=== PATIENT | female | born 1955 | race Caucasian/White ===

== ENCOUNTER 2020-03-28 17:23 | Emergency (ER) | payer BC, SELFPAY ==
[2020-03-28 17:29] VITALS: BP 181/78; PULSE 68; RESP 14; TEMP 36.8; O2SAT 99
--- NOTE | 2020-03-28 17:57 | ED.SKABFB ---
HPI - Skin/Abscess/Foreign Bdy General Chief complaint: Skin/Abscess/Foreign Body Stated complaint: bug bite on left arm Time Seen by Provider: 03/28/20 17:57 Source: patient and RN notes reviewed Mode of arrival: ambulatory Limitations: no limitations History of Present Illness HPI narrative: 65 year old female presents to [facility] with complaints of possible hornet or wasp sting to the upper left upper medial arm which occurred this evening about 45 minutes ago. Patient states when she shook out her shirt she noted a wasp.Patient has 5cm X 6cm area of erythema left medial upper arm surrounding a center puncture string kimberley. Patient describes area as itchy and stinging rates discomfort as 3/10. Patient has not applied any OTC ointment or taken any OTC medications at this time. Patient denies any difficulty with her breathing or any difficulty with swallowing, respirations even and nonlabored with SAO2 99% on room air. MD complaint: insect bite/sting and other Onset (ago): minute(s) (45 minutes prior to arrival) Tetanus up to date: yes Location: LLE Severity: mild Severity scale (1-10): 3 Quality: pruritic and other (stinging) Pain Consistency: constant Relieving factors: none Exacerbating factors: other (palpation) Context: witnessed insect bite Associated symptoms: other (insect sting left upper arm) Treatments prior to arrival: none Related Data Home Medications Medication Instructions Recorded Confirmed atorvastatin 10 mg PO DAILY 03/28/20 03/28/20 benazepril 30 mg PO DAILY 03/28/20 03/28/20 cetirizine [Zyrtec] 10 mg PO DAILY 03/28/20 03/28/20 citalopram 40 mg PO DAILY 03/28/20 03/28/20 levothyroxine 137 mcg PO DAILY 03/28/20 03/28/20 Allergies Allergy/AdvReac Type Severity Reaction Status Date / Time No Known Allergies Allergy Verified 03/28/20 18:00 Review of Systems Review of Systems: Narrative: CONSTITUTIONAL: Denies fever, chills, or sweats. EYES: Denies visual changes, redness, or discharge. ENT: Denies rhinorrhea, congestion, sore throat, or otalgia. CARDIOVASCULAR: Denies chest pain, palpitations, or edema. RESPIRATORY: Denies cough or dyspnea. GASTROINTESTINAL: Denies abdominal pain, nausea, vomiting, or diarrhea. GENITOURINARY: Denies dysuria or hematuria. SKIN:Positive for redness to left medial upper arm with sting kimberley which is itchy and stinging MUSCULOSKELETAL: Denies back pain, joint pain, or myalgia. NEUROLOGIC: Denies headache, numbness, or weakness. PSYCHIATRIC: Denies anxiety or depression. All systems reviewed & are unremarkable except as noted in HPI and below PMFSH Past Medical History Medical History (Updated 03/30/20 @ 13:37 by Grace Wong NP) Anxiety and depression Hyperlipidemia Hypertension Hypothyroid Surgical History Surgical History (Updated 03/30/20 @ 13:38 by Grace Wong NP) History of colon resection S/P lumpectomy of breast right with chemotherapy and radiation treatment Social History Social History (Updated 03/28/20 @ 18:12 by Grace Wong NP) Smoking status: Never smoker Living arrangements: with family Gender identity (if verbalized by the patient): Female Comments At time of signature, agree with nursing past medical, surgical, social history. There is no relevant family history pertinent to the presenting complaint Exam Narrative: Exam Narrative: GENERAL: Well-appearing, well-nourished, and in no acute distress. HEAD: Normocephalic, atraumatic. EYES: PERRLA and EOMI. ENT: Nares clear, no rhinorrhea or epistaxis. Mucous membranes moist. NECK: Supple.no lymphadenopathy to neck CHEST: Clear to auscultation. No respiratory distress.SAO2 99% on room air. HEART: Regular rate and rhythm. No murmur heard. Normal peripheral pulses. ABDOMEN: Soft, nontender, nondistended, normal active bowel sounds. EXTREMITIES: Normal range of motion. No edema. SKIN: Warm, dry, 6cm X 5cm area of erythema to left medial area surrounding central sting p
== END 2020-03-28 18:25 | disposition home or self-care (01) ==
PROVIDERS: Emergency Provider Registered Nurse; PCP Nurse Practitioner Family
DX: T63.481A Toxic effect of venom of other arthropod, accidental (unintentional), initial encounter (principal); F41.9 Anxiety disorder, unspecified; F32.9 Major depressive disorder, single episode, unspecified; E78.5 Hyperlipidemia, unspecified; I10 Essential (primary) hypertension; E03.9 Hypothyroidism, unspecified
CPT/HCPCS: 99203; G0463

== ENCOUNTER → 2020-10-31 00:24 | Outpatient (CLI) | payer BC, SELFPAY ==
[2020-10-31 18:42] LABS: SARS-CoV-2 RNA PCR Negative
== END ==
PROVIDERS: Visit Provider Surgery
DX: Z01.812 Encounter for preprocedural laboratory examination (principal); Z20.822 Contact with and (suspected) exposure to COVID-19
CPT/HCPCS: C9803; U0003; U0005

== ENCOUNTER 2020-10-31 08:45 | Outpatient (CLI) | payer BC, SELFPAY ==
--- NOTE | 2020-10-31 08:50 | ECG_ITS ---
Measurements Intervals [place] Rate: 56 P: 83 DE: 251 QRS: -19 QRSD: 107 T: 0 QT: 453 QTc: 438 Interpretive Statements SINUS BRADYCARDIA WITH FIRST DEGREE AV BLOCK VOLTAGE CRITERIA FOR LVH BORDERLINE R WAVE PROGRESSION, ANTERIOR LEADS BORDERLINE T WAVE ABNORMALITY- INFERIOR LEADS BASELINE ARTIFACT- I, II, III, AVR, AVL,A VF ABNORMAL ECG Electronically Signed On 10-31-2020 9:13:01 CDT by Esau Hayes D.O.
[2020-10-31 09:14] LABS: Basophils Percent Auto 0.7 % (0.2-1.2); Eosinophils Absolute Auto 0.2 K/mm3 (0-0.3); Eosinophils Percent Auto 3.9 % (0-4.4); Hematocrit 38.7 % (37.0-47.0); Hemoglobin 12.6 g/dL (12.0-15.0); Immature Granulocyte Absolute 0.01 K/mm3 (0.00-0.031); Immature Granulocyte Percent A 0.2 % (0-0.5); Lymphocytes Absolute Auto 1.69 K/mm3 (0.9-3.2); Lymphocytes Percent Auto 31.4 % (18.3-44.2); Mean Corpuscular HGB Conc 32.6 g/dl (32-36); Mean Corpuscular Hemoglobin 29.6 pg (26-34); Mean Corpuscular Volume 90.8 fl (80-100); Mean Platelet Volume 9.1 fl (7.4-10.4); Monocytes Absolute Auto 0.5 K/mm3 (0.1-0.6); Monocytes Percent Auto 9.1 % (2.6-8.5); Neutrophils Percent Auto 54.7 % (45.5-73.1); Platelet Count Result 214 k/mm3 (150-375); Red Blood Count 4.26 M/mm3 (4.2-5.4); Red Cell Distribution Width 13.4 % (11.5-14.5); White Blood Count 5.4 K/mm3 (4.5-10.0)
[2020-10-31 09:24] LABS: Prothrombin Time 13.3 Seconds (11.1-14.7)
[2020-10-31 09:25] LABS: Partial Thromboplastin Time 29.2 SECONDS (22.3-36.8)
== END 2020-10-31 08:46 | disposition home or self-care (01) ==
LOC: ANHSURGERY 08:49
PROVIDERS: PCP Nurse Practitioner Family; Visit Provider Surgery
DX: Z01.818 Encounter for other preprocedural examination (principal); I10 Essential (primary) hypertension; E78.5 Hyperlipidemia, unspecified; C18.9 Malignant neoplasm of colon, unspecified; R94.31 Abnormal electrocardiogram [ECG] [EKG]
CPT/HCPCS: 36415; 85025; 85610; 85730; 93005

== ENCOUNTER 2020-11-03 01:18 | Day surgery (SDC) | payer BC, SELFPAY ==
[2020-10-29 13:12] VITALS: BMI 39.1
--- NOTE | ~2020-11-03 | XR_ITS ---
EXAMINATION: XR fl guide central line place DATE: 11/03/2020 08:22 INDICATION: Port placement. TECHNIQUE: A single intraoperative fluoroscopic view of the chest was obtained. I was not present. Fl uoroscopy exposure time was 28 seconds. COMPARISON: None. FINDINGS: There is a right internal jugular port with tip at superior cavoatrial junction. No pneumot horax. Surgical clips overlie right chest. IMPRESSION: 1. Port tip at superior cavoatrial junction. Reviewed, dictated and finalized at location B.
--- NOTE | ~2020-11-03 | XR_ITS ---
EXAMINATION: XR chest port-a-cath/central DATE: 11/03/2020 08:44 INDICATION: Port placement. TECHNIQUE: A single frontal view of the chest was obtained. COMPARISON: None. FINDINGS: There is mild atelectasis in the lower lung zones. No pleural effusion or pneumothorax. The heart size is normal. There is a right internal jugular port with tip in superior vena cava. Surgica l clips overlie right chest. IMPRESSION: 1. Port tip in superior vena cava. 2. Mild atelectasis in the lower lung zones. Reviewed, dictated and finalized at location B.
--- NOTE | 2020-11-03 06:58 | WPDANESEPPF ---
Anes - Initial Pre Proc Eval Procedure: Operation Date: 11/03/20 07:30 Proposed Procedures p Insertion Tanner Cath - Jc Stone MD Date/Time: 11/03/20 06:58 Surgeon: Jc Stone MD Pre Op Diagnosis: malignant neoplasm of ascending colon Patient Data Age: 65 Gender: F Height: 1.57 m Weight: 97 kg Allergies Allergy/AdvReac Type Severity Reaction Status Date / Time No Known Allergies Allergy Verified 10/29/20 13:08 Home Medications Medication Instructions Recorded Confirmed Type atorvastatin 10 mg PO HS 03/28/20 10/29/20 History benazepril 30 mg PO DAILY 03/28/20 10/29/20 History cetirizine [Zyrtec] 10 mg PO DAILY 03/28/20 10/29/20 History citalopram 40 mg PO DAILY 03/28/20 10/29/20 History levothyroxine 137 mcg PO DAILY 03/28/20 10/29/20 History clonazepam 0.5 mg PO BID PRN 10/29/20 10/29/20 History gabapentin 300 mg PO HS 10/29/20 10/29/20 History Patient hx anesthesia problems: none Family hx anesthesia problems: none PMFSH Past Medical History Medical History (Updated 11/03/20 @ 06:58 by Brien Bianchi DO) Anxiety and depression Hyperlipidemia Hypertension Hypothyroid PONV (postoperative nausea and vomiting) Surgical History Surgical History (Updated 11/03/20 @ 06:57 by Brien Bianchi DO) History of colon resection History of hysterectomy S/P lumpectomy of breast right with chemotherapy and radiation treatment Social History Social History (Updated 03/28/20 @ 18:12 by Grace Wong NP) Smoking status: Never smoker Alcohol intake: current Alcohol use details: VERY RARELY Substance use: never Substance use type: does not use Living arrangements: with family Gender identity (if verbalized by the patient): Female Spiritual care concerns: No Anes - Eval Final PreProcedure Day of Procedure 11/03/20 06:58 Patient weight: obese Heart: regular rate and rhythm Lungs: clear to auscultation and normal air movement Airway: Mallampati scale class II Neurological: alert and oriented Last oral intake: >/= 8 hours ASA classification: III Emergent: no Anesthetic plan: proceed Anesthesia type and monitoring: general GIVS and standard monitoring Informed Consent: The patient's anesthetic plan and its attendant risks and benefits were discussed with the patient/family/POA. Questions were solicited and answers provided to the satisfaction of the patient/family/POA.
[2020-11-03] MEDS: LACTATED RINGERS 1,000 ML 30 ML IV CONT (07:05)
[2020-11-03] MEDS: KETOROLAC 15 MG/ML VIAL (*BKC) IV PUSH (07:08)
--- NOTE | 2020-11-03 07:19 | PM.HPGS ---
History of Present Illness History of Present Illness Consent: Risks, benefits, and alternatives of placement of a Port-A-Cath have been discussed and questions answered. Patient agrees to proceed with procedure. Chief complaint: malignant neoplasm of ascending colon Narrative: Laly Kincaid is a 65 year old female with a history of stage to ER positive lymph node negative HER2 [place] negative breast cancer diagnosed in 2011 status post lumpectomy and radiation therapy. She also received amoxicillin and completed treatment in 2012. subsequently the patient was diagnosed with stage III colon cancer during routine screening colonoscopy in 2014 and had a right hemicolectomy at that time period patient subsequently received adjuvant chemotherapy with Xelox completed in July 2015. ox apply at 9 was discontinued due to neuropathy back then. She was closely monitor with CEA starting to climb. Patient Ana had a CT of the chest abdomen pelvis done on September 29, 2020 that showed suspicious padded Hunt[place] marie is a. MRI the abdomen was completed on September thin showed 2 lesions within the liver consistent with metastatic disease. She had CT-guided liver biopsy done on October 17, 2020 and passed allergy came back consistent with metastatic colon cancer. Patient therefore proceeding toward chemotherapy for recurrent colon cancer with metastasis to the liver. She is present I now for placement of a port and then proceeding to further treatment with Dr. Jesus antonio. Review of Systems Constitutional: Constitutional: Reports no additional constitutional complaints, Reports fatigue and Denies malaise Eyes: Eyes: Denies change in vision and Denies loss of vision ENT: Reports Normal hearing present, Denies change in voice, Denies dizziness, Denies hoarseness and Denies sore throat Cardiovascular: Cardiovascular: Denies chest pain, Denies leg edema and Denies dyspnea Comments: History of hypertension and hyperlipidemia Respiratory: Respiratory: Denies cough, Denies dyspnea and Denies wheezing Gastrointestinal: Gastrointestinal: Denies hematochezia, Denies change in bowel habits and Denies heartburn Genitourinary: Genitourinary: Denies urinary frequency and Denies urinary incontinence Integumentary/Breasts: Comments: History of stage to ER positive lymph node negative for 2 [place] negative breast cancer back in 2007. History of MRSA in past. Neurologic: Reports Normal hearing present, Denies confusion, Denies dizziness, Denies loss of vision, Denies memory loss and Denies seizure-like activity Comments: History of headaches Psychiatric: Psychiatric: Denies confusion, Denies depression and Denies memory loss Endocrine: Endocrine: Denies cold intolerance and Reports fatigue Comments: history of hypothyroidism Hematologic/Lymphatic: Hematologic/Lymphatic: Denies easy bleeding and Denies easy bruising Allergic/Immunologic: Allergic/Immunologic: Denies wheezing PMFSH Past Medical History Medical History Anxiety and depression Hyperlipidemia Hypertension Hypothyroid PONV (postoperative nausea and vomiting) Surgical History Surgical History History of colon resection History of hysterectomy S/P lumpectomy of breast right with chemotherapy and radiation treatment Social History Social History Smoking status: Never smoker Alcohol intake: current Alcohol use details: VERY RARELY Substance use: never Substance use type: does not use Living arrangements: with family Gender identity (if verbalized by the patient): Female Spiritual care concerns: No Meds Home Medications and Allergies Home Medications Medication Instructions Recorded Confirmed Type atorvastatin 10 mg PO HS 03/28/20 10/29/20 History benazepril 30 mg PO DAILY 03/28/20 10/29/20 History ce
--- NOTE | 2020-11-03 07:36 | WPDHPUPDATE1 ---
History and Physical Update Update Date/Time: 11/03/20 07:36 History and Physical has been reviewed, including an updated exam of the patient. There are NO changes in the patient's condition. Risks, benefits, and alternatives have been discussed and questions answered. Patient agrees to proceed with procedure.
[2020-11-03] MEDS: ceFAZolin 2 GM/D5W 50 ML 2 GM/50 ML BAG IVPB (07:41)
[2020-11-03 08:02] VITALS: BP 171/96; PULSE 65; RESP 18; TEMP 36.1; O2SAT 98
[2020-11-03] MEDS: BUPIVACAINE/EPINEPHRINE 0.5% 30 ML VIAL INFILTRATE (08:09)
[2020-11-03] MEDS: HEPARIN SODIUM 5,000 UNITS/ML VIAL 5000 UNITS IRRIGATION (08:10)
--- NOTE | 2020-11-03 08:28 | PM.PROC ---
Procedure Note - Detailed Date of procedure: 11/03/20 Pre-op diagnosis: malignant neoplasm of ascending colon Post-op diagnosis: same Procedure performed: Ultra sound guided placement of Port-A-Cath Description of procedure: Patient was seen and marked in the pre-op area prior to coming to the OR. Patient was brought to the operating room. She was placed supine on the operating table and general IV sedation was induced. The nurse soil conservation teacher provided oxygen and IV sedation. Patient's head was carefully turned to the left side while in the supine position and the patient's entire neck and anterior chest on both sides was prepped and draped in the usual sterile fashion. Following this the appropriate time-out was completed confirming procedure and patient. We confirmed that all the needed equipment was present in the room. Following this the ultrasound probe was draped into the field and using the probe we carefully identified the carotid artery and jugular vein on the right neck. I marked the skin directly over the Rt. internal jugular vein. We took a picture using ultrasound machine of the vascular anatomy of the right neck which looked normal. Following this, using the continuous ultrasound guidance, a Cook needle was placed through the skin into this vein. I did use a 11 blade knife to make a small chyna in the skin prior to inserting the needle. I then was able to draw back good dark blood. Once this was completed a guidewire using a J-tip was advanced through the needle and then the needle and the guidewire cover were withdrawn. C-arm fluoroscopy was used to confirm that the guidewire was nicely in the venous system. Once this was confirmed with the C - arm I preceded on by making the pocket for the port on the patient's anterior right chest approximately 3 centimeters below the clavicle overlying the chest wall. Local anesthetic was infiltrated into the skin where there was a transverse incision marked out. Incision was made and we made a pocket inferior to the incision with just a little dissection superior. The low-profile port was tried in the pocket and seemed to fit well. Following this the catheter which had been placed on a tunneling device was tunneled from the port site on the anterior right chest up to the right neck where a small incision had been made with an #11 blade knife. Then the catheter was pulled through so that we would have 15 centimeters to put into the central venous system once the dilation took place. Following this we placed the dilator and sheath over the guidewire in the jugular vein and carefully dilated the tract into the central venous system. The guidewire and dilator were then removed, carefully covering the end of the sheath to prevent air embolus. The end of the catheter which had been cut off straight across and the tip checked was then inserted into the sheath and into the neck. I then carefully pulled the 2 arms of the tear-away sheath away as the accounting assistant held the catheter in position with a DeBakey forceps. Following this we checked the position of the catheter with C-arm fluoroscopy confirming that the tip seemed to be in the distal superior vena cava near the junction with the right atrium. I felt that it was in good position and so the rest of the catheter was pulled down toward the feet into the port site. We then measured to the appropriate position to cut the catheter to attach it to the port stem. Then the connector sealing device for the catheter port was placed onto the catheter and then the catheter cut to the appropriate length and inserted onto the stem of the port. Then the connector was advanced onto the stem over the catheter sealing it to the port. A single 3- 0 Prolene suture was also used during this to suture the connector to the port and to the underlying musculature. Following this at one other site the port was sutured to the underlying musculature with the 3-0 Proline. Both prior to arelis
[2020-11-03 08:35] VITALS: BP 164/68; PULSE 86; RESP 16; O2SAT 95
[2020-11-03 09:10] VITALS: BP 175/80; PULSE 59; RESP 14
== END 2020-11-03 09:45 | disposition home or self-care (01) ==
PROVIDERS: PCP Nurse Practitioner Family; Visit Provider Surgery
PROC: (CPT 36561; principal; 2020-11-03 07:30)
DX: C18.2 Malignant neoplasm of ascending colon (principal); C78.7 Secondary malignant neoplasm of liver and intrahepatic bile duct; F41.9 Anxiety disorder, unspecified; F41.8 Other specified anxiety disorders; E78.5 Hyperlipidemia, unspecified; I10 Essential (primary) hypertension; E03.9 Hypothyroidism, unspecified; Z85.3 Personal history of malignant neoplasm of breast
CPT/HCPCS: 36561; 76937; 77001; C1788; J0690; J1644; J1885; J2250; J2704; J3010; J7030; J7120

== ENCOUNTER 2021-02-16 07:04 | Outpatient (CLI) | payer BC, SELFPAY ==
--- NOTE | ~2021-02-16 | CT_ITS ---
EXAMINATION: CT abdomen pelvis w con DATE: 02/16/2021 07:33 INDICATION: Cecal cancer TECHNIQUE: Computed tomography (CT) of the abdomen and pelvis was performed with 100 mL Omnipaque-350 intravenous contrast. Automated exposure control and iterative reconstruction technique were employe d. The dose-length product was 1139.48 mGy-cm. COMPARISON: None FINDINGS: Mild discoid atelectasis/scarring in the right middle lobe. Heart size is normal. No pericardial or p leural effusion. Central venous catheter tip at the high right atrium. There are approximately 2.5 cm and 2.0 cm hypodense mass is in the right and left hepatic lobes respectively which are suspicious f or metastatic disease. Gallbladder, spleen, pancreas, bilateral adrenal glands and kidneys are normal . Postoperative change of prior cecal resection with ileocolic anastomosis. No abnormal soft tissue m asses to suggest residual/recurrent disease. Bowels are otherwise unremarkable with no bowel obstruct ion. Bladder is normal. The uterus is not identified and has likely been surgically resected. No free intraperitoneal gas or fluid. No pathologically enlarged abdominal or pelvic lymphadenopathy. Modera te lower thoracic and mild to moderate lumbar spondylosis. Mild to moderate bilateral hip osteoarthri tis. There are couple small bone islands at the right acetabulum. No suspicious lytic or blastic bone lesions. IMPRESSION: 1. 2.5 cm and 2.0 cm hypodense hepatic masses concerning for metastatic disease. Correlate with any p rior outside imaging. If clinically indicated the lesions would likely be amenable to ultrasound guid ed percutaneous biopsy. Reviewed, dictated and finalized at location B. IMPRESSION: 1. 2.5 cm and 2.0 cm hypodense hepatic masses concerning for metastatic disease . Correlate with any prior outside imaging. If clinically indicated the lesions would likely be amenable to ultrasound guided percutaneous biopsy.
== END 2021-02-16 07:05 | disposition home or self-care (01) ==
PROVIDERS: PCP Nurse Practitioner Family; Visit Provider Internal Medicine Hematology & Oncology
DX: C18.0 Malignant neoplasm of cecum (principal)
CPT/HCPCS: 74177; Q9967

== ENCOUNTER → 2021-03-10 09:30 | Outpatient (CLI) | payer BC, SELFPAY ==
[2021-03-10 20:46] LABS: SARS-CoV-2 RNA PCR Negative
== END ==
PROVIDERS: PCP Nurse Practitioner Family
DX: Z20.822 Contact with and (suspected) exposure to COVID-19 (principal)
CPT/HCPCS: C9803; U0003; U0005

== ENCOUNTER 2021-09-16 06:56 | Outpatient (CLI) | payer BC, SELFPAY ==
--- NOTE | ~2021-09-16 | CT_ITS ---
EXAMINATION: CT abdomen pelvis w con INDICATION: Cecal cancer TECHNIQUE: Computed tomographic images of the abdomen and pelvis were obtained after the administrati on of 100 cc of Omnipaque 350 intravenous contrast. The dose-length product (DLP) was 1187.99 mGy-cm. Automated exposure control and iterative reconstruction technique were employed. COMPARISON: 02/16/2021 FINDINGS: The lung bases are clear. The heart size is normal. A 2.6 cm mass in liver segment Roselia is s lightly increased in size. A 3 cm subcapsular mass in liver segment V has also slightly increased in size. No new liver masses are identified. The spleen, pancreas, gallbladder, and adrenal glands are n ormal. The kidneys are unremarkable. There are changes of right hemicolectomy. No residual or recurre nt mass is identified. No pathologically enlarged abdominal or pelvic lymph nodes are identified. The re is no free intraperitoneal gas or evidence of bowel obstruction. There is mild lumbar spondylosis. IMPRESSION: 1. Two liver masses with slight interval enlargement, consistent with metastatic disease. Reviewed, dictated and finalized at location B. IMPRESSION: 1. Two liver masses with slight interval enlargement, consistent with metastati c disease.
== END 2021-09-16 06:57 | disposition home or self-care (01) ==
PROVIDERS: PCP Nurse Practitioner Family; Visit Provider Internal Medicine Hematology & Oncology
DX: C18.0 Malignant neoplasm of cecum (principal)
CPT/HCPCS: 74177; Q9967

== ENCOUNTER 2021-10-09 08:23 | Outpatient (CLI) | payer BC, SELFPAY ==
--- NOTE | ~2021-10-09 | MR_ITS ---
EXAMINATION: MR abdomen wo/w con DATE: 10/09/2021 09:47 INDICATION: Liver mass. TECHNIQUE: Magnetic resonance imaging (MRI) of the abdomen was performed without and with 20 mL Multi Soheila intravenous contrast. Sequences included coronal T2-weighted FS FSE, coronal and axial FS FIEST A, axial T2-weighted FSE, coronal LAVA-flex, axial STIR FSE, axial DWI, axial dual-echo T1-weighted F SPGR, and axial LAVA. Postcontrast sequences included coronal LAVA-flex and a time course of axial LA VA. COMPARISON: CT abdomen and pelvis 09/16/2021, 02/16/2021 FINDINGS: There is diffuse hepatic steatosis. There is a 3.0 x 1.8 cm necrotic mass with enhancing wall in segm ent of the liver that measured 2.9 x 2.5 cm on 02/16/21. There is a 2.6 x 1.9 cm necrotic mass with enhancing wall and septa in segment IVb of the liver that measured 2.1 x 1.9 cm on 02/16/21. The gall bladder is distended, likely secondary to fasting. The spleen, pancreas, adrenal glands, and kidneys are normal. There are no dilated loops of bowel. There are no pathologically enlarged lymph nodes. Th ere is no free intraperitoneal fluid. IMPRESSION: 1. Two liver masses, consistent with metastatic disease. Reviewed, dictated and finalized at location A.
== END 2021-10-09 08:24 | disposition home or self-care (01) ==
PROVIDERS: PCP Nurse Practitioner Family
DX: K76.9 Liver disease, unspecified (principal)
CPT/HCPCS: 74183; A9577

== ENCOUNTER 2022-01-20 08:29 | Outpatient (CLI) | payer BC, SELFPAY ==
--- NOTE | ~2022-01-20 | CT_ITS ---
EXAMINATION: CT chest abdomen pelvis w con DATE: 01/21/2022 16:25 CDT INDICATION: Right hip pain for months. Colon cancer. Breast cancer. Cecal cancer. TECHNIQUE: Computed tomography (CT) of the chest, abdomen, and pelvis was performed with 100 cc Omnip aque 300 intravenous contrast. The dose-length product was 1738.63 mGy-cm. Automated exposure control and iterative reconstruction technique were employed. COMPARISON: CT dated 09/16/2021 FINDINGS: CHEST CT: Heart size normal. No thoracic lymphadenopathy. Mild atherosclerosis. No significant pleural or peric ardial effusion. Portacatheter tip in the SVC. Small hiatal hernia. There is a 3 mm right fissural no dule. There is calcified granuloma in the right lower lobe. There is a calcified granuloma left upper lobe. No endobronchial lesions. No pneumothorax. No focal airspace consolidation. There is right mid dle lobe atelectasis/scarring, possibly from radiation therapy. ABDOMEN/PELVIS CT: There are 2 ill-defined masses of the liver with heterogeneous enhancement direct comparison is diffi cult due to differences in bolus contrast timing, presumably representing metastatic disease. The liver, pancreas, adrenal glands are unremarkable. There are changes of partial right hemicolectom y. Gallbladder is present. Nonobstructive bowel pattern. There is a hemangioma of the L3 vertebra. Mi ld thoracic and lumbar spondylosis. There are surgical clips in the right breast and axilla consisten t with previous lumpectomy. IMPRESSION: 1. Persistent ill-defined masses of the liver involving the right and left hepatic lobes. Exact measu rements are difficult to determine for evaluation of change, due to bolus contrast timing. These mass es are presumably metastatic. 2: Right fissural nodule measuring 3 mm, likely benign. Follow-up low dose CT chest in 12 months radha mmended. Reviewed, dictated and finalized at location A. IMPRESSION: 1. Persistent ill-defined masses of the liver involving the right and left hepa tic lobes. Exact measurements are difficult to determine for evaluation of irving ge, due to bolus contrast timing. These masses are presumably metastatic. 2: Right fissural nodule measuring 3 mm, likely benign. Follow-up low dose CT c hest in 12 months recommended.
== END 2022-01-20 08:30 | disposition home or self-care (01) ==
PROVIDERS: PCP Nurse Practitioner Family; Visit Provider Internal Medicine Hematology & Oncology
DX: C18.0 Malignant neoplasm of cecum (principal); R91.8 Other nonspecific abnormal finding of lung field
CPT/HCPCS: 71260; 74177; Q9967

== ENCOUNTER 2022-02-18 20:57 | Emergency (ER) | payer BC, MEDICARE, SELFPAY ==
[2022-02-18 21:03] VITALS: BP 173/84; PULSE 65; RESP 19; TEMP 36.9; O2SAT 100
--- NOTE | 2022-02-18 21:43 | PC.NURSE ---
Pt has emergency kit that she has brought with her that contains gown, gloves, googles, drapes, but no tubing. Inquired whether the patient has a nurse communication instructor to contact if problems with chemo. States she's not aware of this.
--- NOTE | 2022-02-18 21:52 | PC.NURSE ---
Dr. Amaro contacted to ask about RN sulfonation equipment operator.
--- NOTE | 2022-02-18 21:57 | PC.NURSE ---
This RN spoke to Dr. Amaro. [facility] does not have any nurses recreational resort manager and as long as the chemo is infusing into the port the pt should be instructed to come to the office tomorrow.
--- NOTE | 2022-02-18 22:02 | ED.GENADULT ---
HPI - General Adult General Chief complaint: Unspecified Stated complaint: Chemo pump bleeding Time Seen by Provider: 02/18/22 21:06 History of Present Illness HPI narrative: Patient is a 67-year-old female that presents the emergency department with chief complaint of leaking from chemotherapy pump. The patient states that she started her chemotherapy and noticed that around the site it was leaking and some and backing up. Patient states she pushed it back together and taped it and now it is been not alarming and working well the patient states that she has no other issues no chest pain or shortness of breath no fever. Related Data Home Medications Medication Instructions Recorded Confirmed atorvastatin 10 mg tablet 10 mg PO HS 03/28/20 02/17/22 benazepril 20 mg tablet 40 mg PO DAILY 03/28/20 02/17/22 cetirizine 10 mg tablet (Zyrtec) 10 mg PO DAILY 03/28/20 02/17/22 citalopram 40 mg tablet 40 mg PO DAILY 03/28/20 02/17/22 levothyroxine 137 mcg tablet 137 mcg PO DAILY 03/28/20 02/17/22 clonazepam 0.5 mg tablet 0.5 mg PO BID PRN Anxiety 10/29/20 02/17/22 gabapentin 300 mg tablet 300 mg PO HS 10/29/20 02/17/22 ondansetron 8 mg oral soluble film 8 mg PO Q8H PRN Nausea 11/17/20 02/17/22 furosemide 20 mg tablet 20 mg PO DAILY 05/25/21 02/17/22 clobetasol 0.05 % topical cream 1 applic topical DAILY PRN Itching 12/16/21 02/17/22 Allergies Allergy/AdvReac Type Severity Reaction Status Date / Time No Known Allergies Allergy Verified 02/18/22 21:09 Review of Systems Review of Systems: A 10 system review of systems was completed on the patient and is negative except for what is stated in the HPI. Nursing and ancillary documentation was reviewed. [facility] Past Medical History Medical History Anxiety and depression Hyperlipidemia Hypertension Hypothyroid PONV (postoperative nausea and vomiting) Surgical History Surgical History History of colon resection History of hysterectomy S/P lumpectomy of breast right with chemotherapy and radiation treatment Social History Social History Smoking status: Never smoker Alcohol intake: current Alcohol use details: VERY RARELY Substance use: never Substance use type: does not use Gender identity (if verbalized by the patient): Female Spiritual care concerns: No Exam Narrative: GENERAL: Well-appearing, well-nourished, and in no acute distress. HEAD: Normocephalic, atraumatic. EYES: PERRLA and EOMI. ENT: Nares clear, no rhinorrhea or epistaxis. Mucous membranes moist. NECK: Supple. CHEST: Clear to auscultation. No respiratory distress. HEART: Regular rate and rhythm. No murmur heard. Normal peripheral pulses. ABDOMEN: Soft, nontender, nondistended, normal active bowel sounds. EXTREMITIES: Normal range of motion. No edema. SKIN: Warm, dry, no rash. There is a accessed port in the right chest the tubing is intact and not leaking at this time NEURO: No focal deficits. Alert and oriented x3. PSYCH: Normal mood and affect. Course Course Emergency Course: The case was discussed with the patient's oncology provider who recommended just securing the tubing since its not leaking at this time and having the patient follow-up tomorrow morning in the office. Vital Signs Vital signs: Vital Signs Temperature 36.9 C 02/18/22 21:03 Pulse Rate 65 02/18/22 21:03 Respiratory Rate 19 02/18/22 21:03 Blood Pressure 173/84 H 02/18/22 21:03 Pulse Oximetry 100 02/18/22 21:03 Oxygen Delivery Room Air 02/18/22 21:03 Temperature 36.9 C 02/18/22 21:03 Pulse Rate 65 02/18/22 21:03 Respiratory Rate 19 02/18/22 21:03 Blood Pressure 173/84 H 02/18/22 21:03 Pulse Oximetry 100 02/18/22 21:03 Oxygen Delivery Room Air 02/18/22 21:03 Medical Decision Making Vit
== END 2022-02-18 22:15 | disposition home or self-care (01) ==
PROVIDERS: Emergency Provider Emergency Medicine; PCP Nurse Practitioner Family
DX: Z45.1 Encounter for adjustment and management of infusion pump (principal); E78.5 Hyperlipidemia, unspecified; I10 Essential (primary) hypertension; E03.9 Hypothyroidism, unspecified; F41.9 Anxiety disorder, unspecified; F32.A Depression, unspecified; Z90.49 Acquired absence of other specified parts of digestive tract; Z90.710 Acquired absence of both cervix and uterus; Z79.899 Other long term (current) drug therapy; Z92.3 Personal history of irradiation; Z92.21 Personal history of antineoplastic chemotherapy
CPT/HCPCS: 99281

== ENCOUNTER 2022-03-03 14:35 | Outpatient (CLI) | payer BC, SELFPAY ==
--- NOTE | ~2022-03-03 | DEXA_ITS ---
Bone Density Report Name: LINA LEE Age: 67 Sex: Female Ethnicity: White Date of : 1955 Indication: postmenopausal; screening for osteoporosis; cancer; hysterectomy; Referring Provider: CHAU MORAN Study: Bone densitometry was performed. Exam Date: March 03, 2022 Accession number: [id number] Bone Density: Region BMD T-score Z-score Classification AP Spine(L1-L4) 1.061 0.1 1.9 Normal Femoral Neck (Left) 0.799 -0.4 1.1 Normal Total Hip (Left) 0.922 -0.2 1.1 Normal Femoral Neck (Right) 0.809 -0.4 1.2 Normal Total Hip (Right) 0.946 0.0 1.3 Normal Total Hip Mean 0.934 -0.1 1.2 Normal World Health Organization criteria for BMD impression classify patients as: Normal (T-score at or above -1.0), Osteopenia (T-score between -1.0 and -2.5), or Osteoporosis (T-score at or below -2.5). 10-year Fracture Risk: FRAX not reported because: All T-scores for Spine Total, Hip Total, Femoral Neck at or above -1.0 Clinical Information Provided by Patient: Has used the following medications: Vitamin D Has the following medical conditions: Cancer, Hysterectomy Patient maximum height was 62 Menopause Age: 47 No regular weight bearing exercise Drinks caffeinated beverages Onset of menses at age 15 Number of children 1 Impression: The patient has normal bone mass. Discussion: BONE DENSITY IS ABOVE THE MINIMUM DESIRABLE LEVEL AT ALL SKELETAL SITES TESTED. This patient?s bone mineral density is above the minimum desirable level (T-score -1.0 or better) at all sites measured. The patient should follow a healthful lifestyle (good nutrition with adequate calcium and vitamin D, and appropriate weight-bearing exercise). Follow-Up: Consider repeating this study in 5 years or sooner if there is some new clinical indication. Reported by: TOSIN on 03/03/2022 2:59:00 PM. Reviewed, dictated and finalized at location [facility]
== END 2022-03-03 14:36 | disposition home or self-care (01) ==
PROVIDERS: PCP Nurse Practitioner Family; Visit Provider Internal Medicine Hematology & Oncology
DX: M85.89 Other specified disorders of bone density and structure, multiple sites (principal)
CPT/HCPCS: 77080

== ENCOUNTER 2022-05-22 08:37 | Emergency (ER) | payer BC, SELFPAY ==
[2022-05-22 08:52] VITALS: BP 161/83; PULSE 103; RESP 16; TEMP 37.6; O2SAT 97
--- NOTE | 2022-05-22 09:22 | ED.URI ---
HPI - URI/Sore Throat General Chief Complaint: Upper Respiratory Infection Stated Complaint: cough head congestion tight chest Time Seen by Provider: 05/22/22 09:23 Source: patient, RN notes reviewed and old records reviewed Mode of arrival: ambulatory Limitations: no limitations History of Present Illness HPI Narrative: 67-year-old female who presents to [facility] with complaints of cough and congestion with nasal drainage, body aches,ear fullness,and fevers since . Patient reports she is undergoing chemo monthly for liver cancer and is immunocompromised.Patient reports that she has been taking Delsym cough syrup,Tylenol and Theraflu for her symptoms.Patient reports that she did have flu shot. MD elicited complaint: cough and sore throat Pertinent past history: immunosuppression Onset (ago): day(s) (2) Pain scale (0-10): 6 Able to tolerate fluids by mouth: Yes Treatments prior to arrival: acetaminophen, cold medicine and other (Delsym cough syrup) Related Data Home Medications Medication Instructions Recorded Confirmed atorvastatin 10 mg tablet 10 mg PO HS 03/28/20 05/22/22 benazepril 20 mg tablet 40 mg PO DAILY 03/28/20 05/22/22 cetirizine 10 mg tablet (Zyrtec) 10 mg PO DAILY 03/28/20 05/22/22 citalopram 40 mg tablet 40 mg PO DAILY 03/28/20 05/22/22 levothyroxine 137 mcg tablet 137 mcg PO DAILY 03/28/20 05/22/22 clonazepam 0.5 mg tablet 0.5 mg PO BID PRN Anxiety 10/29/20 05/22/22 furosemide 20 mg tablet 20 mg PO DAILY 05/25/21 05/22/22 clobetasol 0.05 % topical cream 1 applic topical DAILY PRN Itching 12/16/21 05/22/22 pantoprazole 40 mg tablet,delayed 40 mg PO DAILY 05/22/22 05/22/22 release Allergies Allergy/AdvReac Type Severity Reaction Status Date / Time No Known Allergies Allergy Verified 05/22/22 09:16 Review of Systems Review of Systems: CONSTITUTIONAL: Reports malaise, chills, sweats, or fever. EYES: Denies visual changes, redness, or discharge. ENT: Reports rhinorrhea, congestion, sinus pain, otalgia no sore throat. CARDIOVASCULAR: Denies chest pain, palpitations, or edema. RESPIRATORY: Reports cough.? Denies dyspnea GASTROINTESTINAL: Denies abdominal pain, nausea, vomiting, diarrhea SKIN: Denies rash or itching. MUSCULOSKELETAL: reports myalgia. NEUROLOGIC: Denies headache. All systems reviewed & are unremarkable except as noted in HPI and below PMFSH Past Medical History Medical History Anxiety and depression Hyperlipidemia Hypertension Hypothyroid Metastatic colon cancer to liver (~09/2020) PONV (postoperative nausea and vomiting) Surgical History Surgical History History of colon resection History of hysterectomy S/P lumpectomy of breast right with chemotherapy and radiation treatment Social History Social History Smoking status: Never smoker Alcohol intake: current Alcohol use details: VERY RARELY Substance use: never Substance use type: does not use Gender identity (if verbalized by the patient): Female Spiritual care concerns: No Comments At time of signature, agree with nursing past medical, surgical, social and family history. There is no relevant family history pertinent to the presenting complaint Exam Narrative: GENERAL: Well-appearing, well-nourished, and in no acute distress. HEAD: Normocephalic EYES: PERRLA, conjunctivae clear ENT: Nares clear, turbinates edematous and erythematous, clear discharge. Mucous membranes moist. TM pearly whittaker with dull light reflex bilaterally; no tragal tenderness. Oropharynx erythematous without lesions. Tonsils not enlarged and without exudate, no drooling, no hoarseness, no trismus, uvula midline.post nasal drainage noted. NECK: Supple. No lymphadenopathy CHEST: Clear to auscultation, breath sounds equal. No wheezing, r
== END 2022-05-22 09:45 | disposition home or self-care (01) ==
PROVIDERS: Emergency Provider Registered Nurse; PCP Nurse Practitioner Family
DX: J10.1 Influenza due to other identified influenza virus with other respiratory manifestations (principal); D84.9 Immunodeficiency, unspecified; E78.5 Hyperlipidemia, unspecified; I10 Essential (primary) hypertension; E03.9 Hypothyroidism, unspecified
CPT/HCPCS: 87804; 99213; G0463

== ENCOUNTER 2022-05-27 08:28 | Outpatient (CLI) | payer BC, SELFPAY ==
--- NOTE | ~2022-05-27 | CT_ITS ---
EXAMINATION: CT abdomen pelvis w con DATE: 05/27/2022 08:52 INDICATION: Malignant neoplasm of ascending colon. History of breast, liver, colon cancer. TECHNIQUE: Computed tomography (CT) of the abdomen and pelvis was performed with 100 CC Omnipaque 350 intravenous contrast. Automated exposure control and iterative reconstruction technique were employe d. Exam dose: 1280.68 mGy-cm total exam DLP. COMPARISON: 01/20/2022 CT chest abdomen pelvis FINDINGS: Chronic middle lobe scarring. The included lower lung zones are clear of infiltrate or cons olidation or pulmonary mass lesion. Borderline heart size. No pericardial or pleural effusion. Small sliding hiatal hernia. The left hepatic lesion measures approximately 2.5 cm maximal dimension currently compared to up to 3 .2 cm approximate maximal dimension on 01/20/2022. The right hepatic lesion appears stable or slightly diminished in size at approximately 2.4 cm leticia l dimension currently compared to estimated measurements of 2.5 cm and 3.4 cm on 01/20/2022 and 022, respectively. The margins of the right hepatic lesion in particular however are ill-defined, chet ing definitive measurement difficult. No new hepatic space-occupying mass lesion is evident. Diffuse hepatic steatosis. The gallbladder is moderately distended. No gallbladder wall thickening or pericholecystic fluid or f at stranding. No bile duct or pancreatic duct dilatation. No pancreatic mass lesion or calcification. Splenic size is within normal range. Normal morphology of the adrenal glands. No renal mass lesion or urinary tract calculus or hydroureteronephrosis is noted. The urinary bladder is unremarkable. Status post hysterectomy. Normal caliber of the abdominal aorta. No intraperitoneal or retroperitoneal or pelvic mass lesion or adenopathy or ascites. Status post right partial colectomy. No bowel obstruction or intraperitoneal free air. There is degenerative change of the thoracic and lumbar spine including grade 1 anterolisthesis at L4 -5 due to degenerative change at the apophyseal joints and bilateral hip osteoarthritis. No suspiciou s osteolytic or osteoblastic lesions. IMPRESSION: Slight improvement of hepatic metastases since 01/20/2022 Reviewed, dictated and finalized at Location [facility]. Reviewed, dictated and finalized at location B. NG ROOM SUPERVISOR
== END 2022-05-27 08:29 | disposition home or self-care (01) ==
PROVIDERS: PCP Nurse Practitioner Family; Visit Provider Internal Medicine Hematology & Oncology
DX: C18.2 Malignant neoplasm of ascending colon (principal); C78.7 Secondary malignant neoplasm of liver and intrahepatic bile duct
CPT/HCPCS: 74177; Q9967

== ENCOUNTER 2022-08-18 08:36 | Outpatient (CLI) | payer BC, SELFPAY ==
--- NOTE | ~2022-08-18 | CT_ITS ---
Clinical Indication: Colon cancer CT Scan of the Chest, Abdomen, and Pelvis with Contrast: Technique: Contiguous sections were acquired throughout the chest, abdomen, and pelvis after intraven ous administration of 100 cc of Omnipaque 350. Dose reduction technique was used on this scan by marguerite thurston automated exposure control and iterative reconstruction technique. The dose-length product (DL P) was 1536.14 mGy-cm. COMPARISON: 05/27/2022 Findings: There is no evidence of any significant mediastinal, hilar or axillary lymphadenopathy. The mediastin al soft tissues and vascular structures appear normal. There is no evidence of pleural or pericardial effusion. The lungs are clear. No pulmonary nodules or infiltrates are noted. There is diffuse fatty infiltration of liver. There is a 2.3 cm hypodense mass near the falciform lig ament in the liver, similar to prior exam. There is a very subtle, ill-defined hypodense lesion in th e peripheral right hepatic lobe, measuring approximately 2.4 cm in greatest dimension, also essential ly stable from prior exam. The spleen, pancreas, gallbladder, adrenals and kidneys are within normal limits. No evidence of aortic aneurysm. No lymphadenopathy. No bowel obstruction or bowel wall thickening. There is evidence of prior partial right colectomy. Th ere is no evidence to suggest acute appendicitis. Urinary bladder is unremarkable. No pelvic mass identified. Impression: Hepatic lesions are essentially stable from prior exam, consistent with stable hepatic metastatic dis ease. Background diffuse fatty infiltration of liver. Prior partial right colectomy. Reviewed, dictated and finalized at [facility]. KEEPING MANAGER Impression: Hepatic lesions are essentially stable from prior exam, consistent with stable hepatic metastatic disease. Background diffuse fatty infiltration of liver. Prior partial right colectomy.
== END 2022-08-18 08:37 | disposition home or self-care (01) ==
PROVIDERS: PCP Nurse Practitioner Family; Visit Provider Internal Medicine Hematology & Oncology
DX: C18.2 Malignant neoplasm of ascending colon (principal); K76.89 Other specified diseases of liver
CPT/HCPCS: 71260; 74177; Q9967

== ENCOUNTER 2022-12-23 08:24 | Outpatient (CLI) | payer BC, SELFPAY ==
--- NOTE | ~2022-12-23 | CT_ITS ---
Clinical Indication: Cecal carcinoma CT Scan of the Chest, Abdomen, and Pelvis with Contrast: Technique: Contiguous sections were acquired throughout the chest, abdomen, and pelvis after intraven ous administration of 100 cc of Omnipaque 350. Dose reduction technique was used on this scan by marguerite palaciosing automated exposure control and iterative reconstruction technique. The dose-length product (DL P) was 1685.68 mGy-cm. COMPARISON: 08/18/2022 Findings: There is no evidence of any significant mediastinal, hilar or axillary lymphadenopathy. The mediastin al soft tissues and vascular structures appear normal. There is no evidence of pleural or pericardial effusion. Stable right middle lobe scarring noted. No pulmonary nodules or infiltrates are noted. There is diffuse fatty infiltration of liver. 2 very subtle background evidence of hepatic lesions, o ne in the peripheral right hepatic lobe, and one just in the proximal ligament, are similar to prior exam. The spleen, pancreas, gallbladder, adrenals and kidneys are within normal limits. No evidence of aortic aneurysm. No lymphadenopathy. No bowel obstruction or bowel wall thickening. There is evidence of prior cecal resection. There is n o evidence to suggest acute appendicitis. Urinary bladder is unremarkable. No adnexal mass evident. No ascites. Impression: Stable probable subtle hepatic masses. Diffuse fatty infiltration of liver. Reviewed, dictated and finalized at location . Impression: Stable probable subtle hepatic masses. Diffuse fatty infiltration of liver.
== END 2022-12-23 08:25 | disposition home or self-care (01) ==
PROVIDERS: PCP Nurse Practitioner Family; Visit Provider Internal Medicine Hematology & Oncology
DX: C18.0 Malignant neoplasm of cecum (principal); R16.0 Hepatomegaly, not elsewhere classified; K76.0 Fatty (change of) liver, not elsewhere classified
CPT/HCPCS: 71260; 74177; Q9967

== ENCOUNTER 2023-04-05 17:46 | Emergency (ER) | payer OTHER, SELFPAY ==
[2023-04-05 17:51] VITALS: BP 157/80; PULSE 74; RESP 16; TEMP 36.8; O2SAT 97
--- NOTE | 2023-04-05 18:32 | ED.FALL ---
HPI - Fall General Chief Complaint: Fall Stated Complaint: Fall Injury/Head/Eye/Right Hand Source: patient Mode of arrival: ambulatory Limitations: no limitations History of Present Illness HPI Narrative: Patient presents for evaluation after sustaining injuries related to a fall around noon today. She indicates she was out in her garage cleaning a vacuum when she fell and struck her head against the ground. She cannot provide me with any symptoms that preceded the fall. No LOC. She is not on blood thinners. No vomiting since the episode. She reports an area of swelling, bruising with an overlying abrasion to the right side of her forehead. She rates pain in that area as 5/10 in severity. She also reports bruising to to the right hand with pain rated 7/10 in severity. She further identifies pain in left wrist also rated 5/10 in severity. She is right hand dominant. She took OTC pain medication earlier without considerable improvement in her symptoms thereafter. Date of last tetanus unknown. She is receiving chemo for colon cancer, which she states has metastasized to her liver. Related Data Home Medications Medication Instructions Recorded Confirmed atorvastatin 10 mg tablet 10 mg PO HS 03/28/20 03/23/23 benazepril 20 mg tablet 40 mg PO DAILY 03/28/20 03/23/23 cetirizine 10 mg tablet (Zyrtec) 10 mg PO DAILY 03/28/20 03/23/23 citalopram 40 mg tablet 40 mg PO DAILY 03/28/20 03/23/23 levothyroxine 137 mcg tablet 137 mcg PO DAILY 03/28/20 03/23/23 clonazepam 0.5 mg tablet 0.5 mg PO BID PRN Anxiety 10/29/20 03/23/23 furosemide 20 mg tablet 20 mg PO DAILY 05/25/21 03/23/23 clobetasol 0.05 % topical cream 1 applic topical DAILY PRN Itching 12/16/21 03/23/23 pantoprazole 40 mg tablet,delayed 40 mg PO DAILY 05/22/22 03/23/23 release Allergies Allergy/AdvReac Type Severity Reaction Status Date / Time No Known Allergies Allergy Verified 03/23/23 11:33 Review of Systems Review of Systems: CONSTITUTIONAL: Denies fever, chills, or sweats. EYES: Denies visual changes, redness, or discharge. ENT: Denies rhinorrhea, congestion, sore throat, or otalgia. CARDIOVASCULAR: Denies chest pain, palpitations, or edema. RESPIRATORY: Denies cough or dyspnea. GASTROINTESTINAL: Denies abdominal pain, nausea, vomiting, or diarrhea. GENITOURINARY: Denies dysuria or hematuria. SKIN: Reports bruising to the right hand and swelling with an overlying abrasion to left side of the forehead MUSCULOSKELETAL: Reports pain in the right hand, left wrist and right side of the forehead. NEUROLOGIC: Denies headache, numbness, dizziness, or weakness. PSYCHIATRIC: Denies anxiety or depression. [facility] Past Medical History Medical History Anxiety and depression Hyperlipidemia Hypertension Hypothyroid Metastatic colon cancer to liver (~09/2020) PONV (postoperative nausea and vomiting) Surgical History Surgical History History of colon resection History of hysterectomy S/P lumpectomy of breast right with chemotherapy and radiation treatment Family History Family History Mother Family history non-contributory Social History Social History Smoking status: Never smoker Alcohol intake: current Alcohol use details: VERY RARELY Substance use: never Substance use type: does not use Living arrangements: with family Gender identity (if verbalized by the patient): Female Spiritual care concerns: No Exam Narrative: GENERAL: Well-appearing, well-nourished, and in no acute distress. HEAD: Normocephalic. There is swelling noted to the right side of the forehead EYES: PERRLA and EOMI. ENT: Nares clear, no rhinorrhea or epistaxis. Mucous membranes moist. Oropharynx without tonsillar hypertrophy exu
[2023-04-05] MEDS: TETANUS,DIPHTHERIA,AC PERTUSSIS ADULT (0.5 ML) BOOSTRIX IM (18:37)
== END 2023-04-05 18:43 | disposition short-term general hospital (02) ==
PROVIDERS: Emergency Provider Nurse Practitioner; PCP Nurse Practitioner Family
DX: S60.221A Contusion of right hand, initial encounter (principal); S00.83XA Contusion of other part of head, initial encounter; S66.912A Strain of unspecified muscle, fascia and tendon at wrist and hand level, left hand, initial encounter; W19.XXXA Unspecified fall, initial encounter; Z23 Encounter for immunization; C18.9 Malignant neoplasm of colon, unspecified; C78.7 Secondary malignant neoplasm of liver and intrahepatic bile duct; Z79.60 Long term (current) use of unspecified immunomodulators and immunosuppressants; E78.5 Hyperlipidemia, unspecified; I10 Essential (primary) hypertension; E03.9 Hypothyroidism, unspecified; F41.9 Anxiety disorder, unspecified; F32.A Depression, unspecified; Z85.3 Personal history of malignant neoplasm of breast; Z90.11 Acquired absence of right breast and nipple
CPT/HCPCS: 90471; 90715; 99212; G0463

== ENCOUNTER 2023-04-05 19:25 | Emergency (ER) | payer OTHER, SELFPAY ==
--- NOTE | ~2023-04-05 | XR_ITS ---
EXAMINATION:[id number] DATE: 04/05/2023 20:24 INDICATION: Neck pain TECHNIQUE: AP, lateral, lateral swimmers and odontoid views of the cervical spine are provided. COMPARISON: None FINDINGS: There is straightening of the cervical spine which can be positional or due to muscular spa sm. Alignment is normal. The odontoid process is intact. No fracture is identified. Vertebral body he ights and disk spaces are normal. Prevertebral soft tissues are normal. Small degenerative osteophyte s project from the anterior endplates of multiple vertebral bodies. There is multilevel mild facet an d uncovertebral joint osteoarthritis. Right internal jugular Port-A-Cath is noted. IMPRESSION: 1. Mild cervical spondylosis without acute findings. Reviewed, dictated and finalized at location F.
--- NOTE | ~2023-04-05 | XR_ITS ---
EXAMINATION: XR wrist LT min 3V DATE: 04/05/2023 20:23 INDICATION: Left wrist pain TECHNIQUE: Posteroanterior, ulnar deviation, oblique, and lateral views of the left wrist were obtain ed. COMPARISON: None available FINDINGS: There is an acute dorsal fracture of the wrist seen on the lateral view, possibly the lunat e. There is soft tissue swelling of the wrist. No additional fracture is suspected. There is mild ost eoarthritis of the triscaphe and first carpometacarpal joints. IMPRESSION: 1. Acute dorsal wrist fracture, possibly the lunate. Reviewed, dictated and finalized at location F.
[2023-04-05 19:48] VITALS: BP 159/75; PULSE 60; RESP 14; TEMP 36.6; O2SAT 100
--- NOTE | 2023-04-06 00:41 | PC.NURSE ---
Patient was called up for vitals at 0006 and 0041. No answer on either.
== END 2023-04-06 00:06 | disposition left against medical advice (07) ==
PROVIDERS: Emergency Provider Emergency Medicine; PCP Nurse Practitioner Family
DX: M25.532 Pain in left wrist (principal)
CPT/HCPCS: 72040; 73110; 99199

== ENCOUNTER 2023-04-06 13:41 | Emergency (ER) | payer OTHER, SELFPAY ==
--- NOTE | ~2023-04-06 | XR_ITS ---
EXAMINATION: XR hand RT min 3V DATE: 04/06/2023 14:16 INDICATION: Right hand injury and pain. TECHNIQUE: 4 views of right hand were obtained. COMPARISON: None. FINDINGS: There is an extra-articular fracture of base of fifth proximal phalanx. The distal fracture fragment demonstrates 12 degrees dorsal angulation. There is mild osteoarthritis of fifth distal int erphalangeal joint and first carpometacarpal joint. 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 IMPRESSION: 1. Extra-articular oblique fracture of base of fifth proximal phalanx. Reviewed, dictated and finalized at location A.
[2023-04-06 13:51] VITALS: BP 147/79; PULSE 69; RESP 18; TEMP 36.6; O2SAT 96
--- NOTE | 2023-04-06 14:14 | ED.UPPEXIN ---
HPI - Extremity Injury (Upper) General Chief Complaint: Extremity Injury, Upper Stated Complaint: right hand / fracture on left wrist Source: patient Mode of arrival: ambulatory Limitations: no limitations History of Present Illness HPI narrative: 68 y/o female Patient returned for evaluation after sustaining injuries related to a fall around noon yesterday. Patient was seen at [facility] yesterday for the same, was advised to go to the ER for head CT due to swelling and bruising to the right forehead, also planned to have hand/wrist imaging completed at that time. Patient however did not stay for the reports of the xray and saw on [facility] the left wrist has acute dorsal wrist fracture. She left ER without CT imaging. The injuries occurred when she was in her garage cleaning a vacuum when she fell and struck her head against the concrete,? Denies any symptoms that preceded the fall.? No LOC.? She is not on blood thinners.? No vomiting, dizziness, vision changes, or neck pain since the episode.? She reports right black eye, swelling and bruising with an abrasion to the right side of her forehead. Also reports bruising and swelling to the right hand and left wrist/hand.?Taking Motrin for pain. She is right hand dominant. She is receiving chemo for colon cancer, which she states has metastasized to her liver. Related Data Home Medications Medication Instructions Recorded Confirmed atorvastatin 10 mg tablet 10 mg PO HS 03/28/20 04/06/23 benazepril 20 mg tablet 40 mg PO DAILY 03/28/20 04/06/23 cetirizine 10 mg tablet (Zyrtec) 10 mg PO DAILY 03/28/20 04/06/23 citalopram 40 mg tablet 40 mg PO DAILY 03/28/20 04/06/23 levothyroxine 137 mcg tablet 137 mcg PO DAILY 03/28/20 04/06/23 clonazepam 0.5 mg tablet 0.5 mg PO BID PRN Anxiety 10/29/20 04/06/23 furosemide 20 mg tablet 20 mg PO DAILY 05/25/21 04/06/23 clobetasol 0.05 % topical cream 1 applic topical DAILY PRN Itching 12/16/21 04/06/23 pantoprazole 40 mg tablet,delayed 40 mg PO DAILY 05/22/22 04/06/23 release Allergies Allergy/AdvReac Type Severity Reaction Status Date / Time No Known Allergies Allergy Verified 04/06/23 14:05 Review of Systems Review of Systems: CONSTITUTIONAL: Denies body aches, fever, chills EYES: Denies visual changes; reports right eye bruising ENT: Denies rhinorrhea, congestion CARDIOVASCULAR: Denies chest pain, palpitations, or edema. RESPIRATORY: Denies cough or dyspnea. GASTROINTESTINAL: Denies abdominal pain, nausea, vomiting, or diarrhea. SKIN: Reports abrasion to right forehead Denies rash, itching MUSC: Reports right finger pain, left wrist pain NEUROLOGIC: Denies headache, dizziness, numbness, tingling, or weakness. All systems reviewed & are unremarkable except as noted in HPI and below PMFSH Past Medical History Medical History Anxiety and depression Hyperlipidemia Hypertension Hypothyroid Metastatic colon cancer to liver (~09/2020) PONV (postoperative nausea and vomiting) Surgical History Surgical History History of colon resection History of hysterectomy S/P lumpectomy of breast right with chemotherapy and radiation treatment Family History Family History Mother Family history non-contributory Social History Social History Smoking status: Never smoker Alcohol intake: current Alcohol use details: VERY RARELY Substance use: never Substance use type: does not use Living arrangements: with family Gender identity (if verbalized by the patient): Female Spiritual care concerns: No Comments At time of signature, I have reviewed and agree with nursing past medical, surgical, social and family history unless otherwise noted. Please see nursing chart for further information. There is no relevant famil
== END 2023-04-06 15:09 | disposition left against medical advice (07) ==
PROVIDERS: Emergency Provider Nurse Practitioner Family; PCP Nurse Practitioner Family
DX: S62.102A Fracture of unspecified carpal bone, left wrist, initial encounter for closed fracture (principal); S62.616A Displaced fracture of proximal phalanx of right little finger, initial encounter for closed fracture; S05.11XA Contusion of eyeball and orbital tissues, right eye, initial encounter; C18.9 Malignant neoplasm of colon, unspecified; C78.7 Secondary malignant neoplasm of liver and intrahepatic bile duct; E78.5 Hyperlipidemia, unspecified; I10 Essential (primary) hypertension; E03.9 Hypothyroidism, unspecified; Z79.899 Other long term (current) drug therapy; W18.30XA Fall on same level, unspecified, initial encounter; Y92.008 Other place in unspecified non-institutional (private) residence as the place of occurrence of the external cause
CPT/HCPCS: 29125; 73130; 99214; A4565; G0463

== ENCOUNTER 2023-04-13 08:06 | Outpatient (CLI) | payer OTHER, SELFPAY ==
--- NOTE | ~2023-04-13 | CT_ITS ---
CT of the Abdomen and Pelvis: Indication: Cecal cancer Technique: 2.5 mm axial scans were obtained through the abdomen and pelvis following intravenous adm inistration of 100 cc of Omnipaque 350. Dose reduction technique was used on this scan by utilizing a utomated exposure control and iterative reconstruction technique. The dose-length product (DLP) was 1 045.09 mGy-cm. COMPARISON: 12/23/2022 Findings: Scans through the lung bases demonstrate stable right middle lobe scarring. There is diffuse fatty infiltration of the liver. Possible very subtle hepatic lesions at the falcifo rm ligament and peripheral right hepatic lobe are stable from prior exam. The spleen, pancreas, gallb ladder, adrenals and kidneys are within normal limits. No evidence of aortic aneurysm. No lymphaden opathy. No bowel obstruction or bowel wall thickening. Evidence of prior cecal resection. Images through the pelvis were performed. Urinary bladder unremarkable. No pelvic mass seen. No ascit es. Patient is status post hysterectomy. Impression: Possible subtle hepatic lesions, stable from prior exam. Underlying diffuse fatty infiltration of liver. Postoperative changes, as above. Reviewed, dictated and finalized at location . Impression: Possible subtle hepatic lesions, stable from prior exam. Underlying diffuse fatty infiltration of liver. Postoperative changes, as above.
[2023-04-13 08:43] LABS: Estimated Glomerular Filt Rate > 60
== END 2023-04-13 08:07 ==
PROVIDERS: PCP Internal Medicine Hematology & Oncology; Visit Provider Internal Medicine Hematology & Oncology
DX: C18.0 Malignant neoplasm of cecum (principal); K76.0 Fatty (change of) liver, not elsewhere classified
CPT/HCPCS: 74177; Q9967

== ENCOUNTER 2023-08-09 08:39 | Outpatient (CLI) | payer OTHER, SELFPAY ==
--- NOTE | ~2023-08-09 | CT_ITS ---
Clinical Indication: Cecal carcinoma CT Scan of the Chest, Abdomen, and Pelvis with Contrast: Technique: Contiguous sections were acquired throughout the chest, abdomen, and pelvis after intraven ous administration of 100 cc of Omnipaque 350. Dose reduction technique was used on this scan by marguerite palaciosing automated exposure control and iterative reconstruction technique. The dose-length product (DL P) was 2217.17 mGy-cm. COMPARISON: 04/13/2023 Findings: There is no evidence of any significant mediastinal, hilar or axillary lymphadenopathy. The mediastin al soft tissues appear normal. There is no evidence of pleural or pericardial effusion. The lungs are clear, aside from chronic scarring in the right middle lobe. There is diffuse fatty infiltration of liver. Stable probable lesion at the liver near the falciform ligament with surrounding mild hyperdensity and biopsy clip. Probable tiny gallstone. The spleen, montiel creas, adrenals and kidneys are within normal limits. No evidence of aortic aneurysm. No lymphadeno wes. No bowel obstruction or bowel wall thickening. There is evidence of prior partial right colectomy. Urinary bladder is unremarkable. No pelvic mass evident. No ascites. Impression: No significant interval change. Stable probable hepatic lesion is also ligament with surrounding hype rdensity associated biopsy clip. This could reflect treated disease. Underlying diffuse fatty infiltration of the liver. Chronic scarring right middle lobe. Reviewed, dictated and finalized at [facility]. NESS SERVICES ADMINISTRATOR Impression: No significant interval change. Stable probable hepatic lesion is also ligament with surrounding hyperdensity associated biopsy clip. This could reflect treat ed disease. Underlying diffuse fatty infiltration of the liver. Chronic scarring right middle lobe.
== END 2023-08-09 08:40 | disposition home or self-care (01) ==
PROVIDERS: PCP Internal Medicine Hematology & Oncology; Visit Provider Internal Medicine Hematology & Oncology
DX: C18.0 Malignant neoplasm of cecum (principal); K76.0 Fatty (change of) liver, not elsewhere classified; R91.8 Other nonspecific abnormal finding of lung field
CPT/HCPCS: 71260; 74177; Q9967

== ENCOUNTER 2023-11-01 08:47 | Outpatient (CLI) | payer OTHER, SELFPAY ==
--- NOTE | ~2023-11-01 | CT_ITS ---
Clinical Indication: Cecal cancer CT Scan of the Chest, Abdomen, and Pelvis with Contrast: Technique: Contiguous sections were acquired throughout the chest, abdomen, and pelvis after intraven ous administration of 100 cc of Omnipaque 350. Dose reduction technique was used on this scan by marguerite thurston automated exposure control and iterative reconstruction technique. The dose-length product (DL P) was 1596.31 mGy-cm. COMPARISON: 08/09/2023 Findings: There is no evidence of any significant mediastinal, hilar or axillary lymphadenopathy. The mediastin al soft tissues and vascular structures appear normal. There is no evidence of pleural or pericardial effusion. Stable right middle lobe scarring noted.. No suspicious pulmonary nodule seen. Diffuse hepatic steatosis noted. There is stable clip in the liver near the falciform ligament with s ome surrounding amorphous hyperdensity. The spleen, pancreas, gallbladder, adrenals and kidneys are w ithin normal limits. No evidence of aortic aneurysm. No lymphadenopathy. No bowel obstruction or bowel wall thickening. Status post prior partial right colectomy. There is no evidence to suggest acute appendicitis. Urinary bladder is unremarkable. No pelvic mass seen, status post hysterectomy. No ascites. Impression: No interval change. Stable hepatic lesion which could reflect treated disease. Status post partial right colectomy. Diffuse hepatic steatosis. Reviewed, dictated and finalized at location . Impression: No interval change. Stable hepatic lesion which could reflect treated disease. Status post partial right colectomy. Diffuse hepatic steatosis.
[2023-11-01 09:31] LABS: Estimated Glomerular Filt Rate > 60
== END 2023-11-01 08:48 | disposition home or self-care (01) ==
PROVIDERS: PCP Internal Medicine Hematology & Oncology; Visit Provider Internal Medicine Hematology & Oncology
DX: C18.0 Malignant neoplasm of cecum (principal); K76.0 Fatty (change of) liver, not elsewhere classified; Z90.49 Acquired absence of other specified parts of digestive tract
CPT/HCPCS: 71260; 74177; Q9967

== ENCOUNTER 2023-11-22 11:59 | Outpatient (CLI) | payer OTHER, SELFPAY ==
--- NOTE | ~2023-11-22 | MMUS_ITS ---
EXAMINATION: MM diagnostic ceci BI w carli, US breast RT limited HISTORY: History of right breast malignancy status post lumpectomy TECHNIQUE: Additional 3-D tomosynthesis images of the breasts were performed and synthetic 2-D images were generated. CAD analysis was submitted and interpreted. High resolution Limited right breast ult rasound was performed. COMPARISON: Comparison to multiple prior studies sequentially, with oldest reviewed study dated 12/16. BREAST PARENCHYMAL COMPOSITION: Not dense: There are scattered areas of fibroglandular density. FINDINGS: MAMMOGRAPHIC FINDINGS: The breasts are stable. No new masses, calcifications or architectural distortion in either breast to suggest malignancy. ULTRASOUND: Limited right breast ultrasound: Heterogeneous echotexture is present with posterior shadowing at 11: 00, 6 cm from the nipple, corresponding to the area of postsurgical change and scarring. No discrete mass identified. IMPRESSION: 1. No evidence for malignancy in either breast. 2. Routine yearly screening mammogram and regular clinical breast examination are recommended. BI-RADS Category 2: Benign finding(s). Reviewed, dictated and finalized at location B. IMPRESSION: 1. No evidence for malignancy in either breast. 2. Routine yearly screening mammogram and regular clinical breast examination a re recommended. BI-RADS Category 2: Benign finding(s).
== END 2023-11-22 12:00 | disposition home or self-care (01) ==
PROVIDERS: PCP Internal Medicine Hematology & Oncology; Visit Provider Internal Medicine Hematology & Oncology
DX: C50.411 Malignant neoplasm of upper-outer quadrant of right female breast (principal)
CPT/HCPCS: 76642; 77062; 77066; G0279

== ENCOUNTER 2024-01-23 08:52 | Outpatient (CLI) | payer OTHER, SELFPAY ==
--- NOTE | ~2024-01-23 | CT_ITS ---
Clinical Indication: Cecal cancer CT Scan of the Chest, Abdomen, and Pelvis with Contrast: Technique: Contiguous sections were acquired throughout the chest, abdomen, and pelvis after intraven ous administration of 100 cc of Omnipaque 350. Dose reduction technique was used on this scan by marguerite thurston automated exposure control and iterative reconstruction technique. The dose-length product (DL P) was 1552.51 mGy-cm. COMPARISON: 11/01/2023 Findings: Right-sided Mediport in place. There is no evidence of any significant mediastinal, hilar or axillary lymphadenopathy. The mediastin al soft tissues appear normal. Evidence of probable prior right breast surgery. There is no evidence of pleural or pericardial effusion. Stable chronic scarring in the right middle lobe. No other pulmonary abnormality seen. There is diffuse hepatic steatosis. Stable posttreatment change in the anterior liver. The spleen, pa ncreas, gallbladder, adrenals and kidneys are within normal limits. No evidence of aortic aneurysm. No lymphadenopathy. No bowel obstruction or bowel wall thickening. Status post partial right colectomy. Urinary bladder is unremarkable. No pelvic mass evident. Status post hysterectomy. No ascites. Impression: No evidence of active malignancy or metastatic disease. Stable posttreatment change in the liver. Status post partial right colectomy. Diffuse hepatic steatosis. Reviewed, dictated and finalized at location . Impression: No evidence of active malignancy or metastatic disease. Stable posttreatment ch sasha in the liver. Status post partial right colectomy. Diffuse hepatic steatosis.
== END 2024-01-23 08:53 | disposition home or self-care (01) ==
LOC: ANHIMG 08:52
PROVIDERS: Visit Provider Internal Medicine Hematology & Oncology
DX: C18.0 Malignant neoplasm of cecum (principal); K76.0 Fatty (change of) liver, not elsewhere classified; Z90.49 Acquired absence of other specified parts of digestive tract
CPT/HCPCS: 71260; 74177; Q9967

== ENCOUNTER 2024-08-16 08:24 | Outpatient (CLI) | payer OTHER, MEDICARE, SELFPAY ==
--- NOTE | ~2024-08-16 | CT_ITS ---
EXAMINATION: CT chest abdomen pelvis w con DATE: 08/16/2024 08:53 INDICATION: Cecal cancer TECHNIQUE: Computed tomography (CT) of the chest, abdomen, and pelvis was performed with 100 mL Omnip aque-350 intravenous contrast. Automated exposure control and iterative reconstruction technique were employed. The dose-length product was 1663.47 mGy-cm. COMPARISON: None FINDINGS: CHEST CT: Postoperative changes at the upper outer quadrant of the right breast. Right internal jugular central venous port catheter with distal tip at the high right atrium. Unchanged focal pleural parenchymal s carring and associated linear discoid atelectasis/scarring along the anterior right upper and middle lobes which may be related to prior radiation treatment. No suspicious pulmonary nodules, pneumonia, pulmonary edema or pleural effusion. Heart size is normal. Heart size is normal. No pericardial effus ion. Thoracic aorta is normal in caliber with no dissection. No pathologically enlarged thoracic lymp hadenopathy. Moderate thoracic spondylosis with chronic mild anterior wedging at T8 and T9. ABDOMEN/PELVIS CT: Diffuse hepatic steatosis. Cirrhosis with subtle liver surface nodularity and stigmata of portal veno us hypertension including esophageal varicosities and a recanalized umbilical vein. No significant in terval change in a subtle 3.2 cm hypodense mass in the right hepatic lobe. There has been some decrea se in size of an approximately 1.2 x 1.1 cm, previously 1.8 x 1.5 cm hypodense mass with a couple adj acent surgical clips located at the junction of segments 3 and 4B of the liver. No new or enlarging h epatic lesions identified. Tiny calcified gallstones in dependent aspect of the normal-appearing gall bladder. Spleen, pancreas, bilateral adrenal glands and kidneys are normal. Postoperative change of p rior cecal resection with right lower quadrant ileocolic anastomosis. No bowel obstruction. Bladder i s normal. The uterus is not identified and has likely been surgically resected. No free intraperitone al gas or fluid. No pathologically enlarged abdominal or pelvic lymphadenopathy. L3 hemangioma. IMPRESSION: 1. 2 hepatic masses consistent with metastatic disease, the larger unchanged and the smaller decrease in size since the prior study. No suspicious for metastatic disease in the chest, abdomen or pelvis. 2. Cirrhosis and diffuse hepatic steatosis with portal venous hypertension. 3. Cholelithiasis. 4. Postoperative change including hysterectomy, right hemicolectomy and changes of likely excisional biopsy of the right breast with mild radiation fibrosis along the periphery of the underlying anterio r right lung. 4. Cholelithiasis. Reviewed, dictated and finalized at location A. OGEN POWER PLANT MANAGER IMPRESSION: 1. 2 hepatic masses consistent with metastatic disease, the larger unchanged an d the smaller decrease in size since the prior study. No suspicious for metasta tic disease in the chest, abdomen or pelvis. 2. Cirrhosis and diffuse hepatic steatosis with portal venous hypertension. 3. Cholelithiasis. 4. Postoperative change including hysterectomy, right hemicolectomy and changes of likely excisional biopsy of the right breast with mild radiation fibrosis a long the periphery of the underlying anterior right lung. 4. Cholelithiasis.
--- OUTSIDE RECORDS SUMMARY | 2024-08-16 08:34 | XMS_ITS | Clinical Summary ---
Author Organization [facility] Address [address] [place] [address] Phone Care Team Providers Care Composition Roll Maker And Cutter Name Role Phone LeahyZahida APRN, OUTSIDE OPERATOR Primary Care Provider Medications acetaminophen-c odeine (TYLENOL WITH CODEINE) 120-12 MG/5ML SolutionIndicat ions:Periorbita l contusion of right eye Take 5 mL by mouth every 6 hours as needed for Moderate or more severe pain. 60 mL 04/06/2023 Active Active Problems Problem Noted Date Diagnosed Date Adjustment reaction 12/22/2017 Family History Medical History Relation Name Comments No Known Problems Father COPD Heart Attack Mother Relation Name Status Comments Father COPD Mother Social History Tobacco Use Types Packs/Day Years Used Date Smoking Tobacco: Never Smokeless Tobacco: Never Alcohol Use Standard Drinks/Week Comments No 0 (1 standard drink = 0.6 oz pur e alcohol) Comments Unknown Sex and Gender Information Value Date Recorded Sex Assigned at Not on file Legal Sex Female 9:06 PM CDT Gender Identity Not on file Sexual Orientation Not on file Last Filed Vital Signs Vital Sign Reading Time Taken Comments Blood Pressure 148/71 04/06/2023 7:46 PM CDT Pulse 62 04/06/2023 7:46 PM CDT Temperature 36.8 C (98.2 F) 04/06/2023 7:46 PM CDT Respiratory Rate 16 04/06/2023 7:4 6 PM CDT Oxygen Saturation 99% 04/06/2023 7:4 6 PM CDT Inhaled Oxygen Concentration - - Weight 101.6 kg (224 lb) 04/06/2023 5:1 6 PM CDT BMI incorrect due to technical error Height 157.5 cm (5' 2 ) 04/06/2023 5:16 PM CDT BMI incorrect due to technical error Body Mass Index 40.97 04/06/2023 5:16 PM CDT Plan of Treatment Health Maintenance Due Date Last Done Comments DEXA Bone Density 1955 Hepatitis C Virus (HCV) Screening 1955 Colonoscopy 2002 Colorectal Cancer Screening 2002 Cologuard 2007 Immunochemical Fecal Occult Blood 2007 Respiratory Syncytial Virus (RSV) Immunization (Adult) (1 - Risk 60-74 years 1-dose series) 2017 Mammogram 12/17/2019 12/16/2017, 10/25, 10/29/2013, Additional history exists Zoster Immunization (2 of 2) 09/14/2022 07/20/2022 Influenza Immunization (#1) 02/26/202403/28, 04/10/2021, 04/10/2020, Additional history exists SARS-COV-2 Immunization ( season) 2024 07/19/2022, 06/18/2021, 09/15/2020, Additional history exists Pneumococcal Immunization (50+ years) Completed 07/20/2022 Pneumococcal Immunization Combined Discontinued 07/20/2022 DTaP/Tdap/Td Immunization Discontinued 04/05/2023, TdaP Immunization Completed 04/05/2023, 10/16/2018 Hepatitis B Immunization Aged Out No longer eligible based on patient's age to complete this topic Meningococcal Immunization (ACWY) Aged Out No longer eligible based on patient's age to complete this topic Rotavirus Immunization Aged Out No lo nger eligible based on patient's age to complete this topic Insurance [employer] Care Teams Composition Roll Maker And Cutter Relationship Specialty Start Date End Date Zahida Leahy APRN, OUTSIDE OPERATOR [address] [place] [id number] PCP - General Advanced Practice Nurse 12/21/17
== END 2024-08-16 08:25 | disposition home or self-care (01) ==
LOC: ANHIMG 08:31
PROVIDERS: Visit Provider Internal Medicine Hematology & Oncology
DX: C18.0 Malignant neoplasm of cecum (principal); R16.0 Hepatomegaly, not elsewhere classified; K74.60 Unspecified cirrhosis of liver; K76.0 Fatty (change of) liver, not elsewhere classified; K76.6 Portal hypertension; K80.20 Calculus of gallbladder without cholecystitis without obstruction; Z90.710 Acquired absence of both cervix and uterus; Z90.49 Acquired absence of other specified parts of digestive tract; N60.31 Fibrosclerosis of right breast; J84.10 Pulmonary fibrosis, unspecified; Z92.3 Personal history of irradiation
CPT/HCPCS: 71260; 74177; Q9967

== ENCOUNTER 2024-11-14 09:02 | Outpatient (CLI) | payer OTHER, MEDICARE, SELFPAY ==
--- NOTE | ~2024-11-14 | CT_ITS ---
Clinical Indication: Cecal cancer CT Scan of the Chest, Abdomen, and Pelvis with Contrast: Technique: Contiguous sections were acquired throughout the chest, abdomen, and pelvis after intraven ous administration of 100 cc of Omnipaque 350. Dose reduction technique was used on this scan by uti suzanneing automated exposure control and iterative reconstruction technique. The dose-length product (DL P) was 1669.66 mGy-cm. Comparison: 08/16/2024 Findings: There is no evidence of any significant mediastinal, hilar or axillary lymphadenopathy. The mediastin al soft tissues appear normal. There is no evidence of pleural or pericardial effusion. Stable focal scarring right middle lobe. No suspicious pulmonary nodule. There is diffuse hepatic steatosis. Stable probable subtle hepatic masses, as could reflect metastati c disease versus treated disease. Small gallstones present. The spleen, pancreas, adrenals and kidney s are within normal limits. No evidence of aortic aneurysm. No lymphadenopathy. No bowel obstruction or bowel wall thickening. Prior partial right colectomy. Urinary bladder is unremarkable. No pelvic mass seen. Status post hysterectomy. No ascites. Impression: 2 subtle hepatic lesions are essentially unchanged, which could reflect metastatic disease versus renetta ated metastases. Correlate with treatment history. Diffuse hepatic steatosis. Cholelithiasis. Reviewed, dictated and finalized at location . Impression: 2 subtle hepatic lesions are essentially unchanged, which could reflect metasta tic disease versus treated metastases. Correlate with treatment history. Diffuse hepatic steatosis. Cholelithiasis.
--- OUTSIDE RECORDS SUMMARY | 2024-11-14 09:44 | XMS_ITS | Encounter Summary ---
Author Organization [facility] Address [address] [place] [address] Care Team Providers Care Traveling Crane Operator Name Role Phone Zahida Leahy [facility] Primary Care Provider [phone] Encounter Details Date Type Department Care Team (Latest Contact Info) Description 06/11/2008 Outpatient Historical [facility] Radiation Oncology [place] [address] [place] [id number] Adarsh Hudson MD [address] [place] [phone] Malignant Neoplasm of Upper-Outer Quadrant of Female Breast (CMS/HCC) Social History Tobacco Use Types Packs/Day Years Used Date Smoking Tobacco: Never Assessed Comments Unknown Sex and Gender Information Value Date Recorded Sex Assigned at Not on file Legal Sex Female 5:39 AM PAPER CUTTER 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 Gender Identity Not on file Sexual Orientation Not on file documented as of this encounter Plan of Treatment Upcoming Encounters Date Type Department Care Team (Late st Contact Info) Description 11/21/2024 9:00 AM CDT Office Visit [facility] Oncology and Hematology - [address] [facility] [address] [place] [address] Real Amaro MD [address] [facility] [address] [place] [address] documented as of this encounter Visit Diagnoses Diagnosis Malignant neoplasm of upper-outer quadrant of female breast (CMS/HCC) Malignant neoplasm of upper-outer quadrant of female breast documented in this encounter Care Teams Traveling Crane Operator Relationship Specialty Start Date End Date Zahida Leahy FNP PCP - General Nurse Practitioner Family 10/15/20 documented as of this encounter
--- OUTSIDE RECORDS SUMMARY | 2024-11-14 09:44 | XMS_ITS | Encounter Summary ---
Author Organization [facility] Address [address] [place] [address] Care Team Providers Care Car Parker Name Role Phone Zahida Leahy Travis [facility] Primary Care Provider [phone] Encounter Details Date Type Department Care Team (Late Contact Info) Description 01/17/2009 Outpatient Historical [facility], [address] Indu Barth MD [address] [place] [address] [place] [address] Malignant Neoplasm of Breast (Female), Unspecified Site (CMS/HCC) Social History Tobacco Use Types Packs/Day Years Used Date Smoking Tobacco: Never Alcohol Use Standard Drinks/Week Comments Yes 0 (1 standard drink = 0.6 oz pur e alcohol) Comments Unknown Sex and Gender Information Value Date Recorded Sex Assigned at Not on file Legal 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 Gender Identity Not on file Sexual Orientation Not on file documented as of this encounter Plan of Treatment Upcoming Encounters Date Type Department Care Team (Late Contact Info) Description 11/21/2024 9:00 AM CDT Office Visit [facility] Oncology and Hematology - [place] [address] [place] [address] Real Amaro MD [address] [facility] [address] [place] [address] documented as of this encounter Visit Diagnoses Diagnosis Malignant neoplasm of breast (female), unspecified site documented in this encounter Care Teams Car Parker Relationship Specialty Start Date End Date Zahida Leahy FNP PCP - General Nurse Practitioner Family 10/15/20 documented as of this encounter
--- OUTSIDE RECORDS SUMMARY | 2024-11-14 09:44 | XMS_ITS | Clinical Summary ---
Author Organization [employer] [address] [place] [address] [place] [id number] Care Team Providers Care Finisher Map And Chart Name Role Phone Armond Zahida Travis DOPE SPRAYER Primary Care Provider Allergies No known active allergies Medications loratadine 10 mg Oral CapIndications:MRSA (methicillin resistant Staphylococcus aureus),Breast cancer (CMS/HCC),Lump or mass in breast,Strep throat Take by mouth. Active citalopram (CeleXA) 40 mg tablet Take 40 mg by mouth daily. Active atorvastatin (LIPITOR) 10 mg tablet Take 10 mg by mouth late in the day. Active LORazepam (ATIVAN) 0.5 mg tabletIndications:E levated tumor markers,Neuropathy due to chemotherapeutic drug,Malignant neoplasm of ascending colon (CMS/HCC),Acquired hypothyroidism,Lupe gnant neoplasm of upper-outer quadrant of right breast in female, estrogen receptor positive (CMS/HCC),History of vitamin D deficiency,Skin rash,Anxiety state,Liver lesion Take 1 Tablet (0.5 mg) by mouth every 6 hours as needed for Anxiety or Other (See Comment) (also prior to procedure / MRI, if needed). 10 Tablet 1 10/03/19 21 Active prochlorperazine maleate (COMPAZINE) 10 mg tabletIndications:P rimary colon cancer with invasion of muscularis propria into pericolorectal tissues (T3) (CMS/HCC) Take 1 Tablet (10 mg) by mouth every 6 hours as needed for Nausea/Emesis. 90 Tablet 3 11/14/19 21 Active clonazePAM (KlonoPIN) 0.5 mg Tablet TAKE 1 TABLET BY MOUTH TWICE DAILY NEEDED FOR ANXIETY 11/30/19 Active Euthyrox 137 mcg tablet TAKE 1 TABLET BY MOUTH ONCE DAILY 11/24/19 21 Active lidocaine-prilocain e (EMLA) 2.5-2.5 % CreamIndications:Pr imary colon cancer with invasion of muscularis propria into pericolorectal tissues (T3) (CMS/HCC) Apply to affected area see administration instructions. Apply to port site 30 minutes prior to access 30 Gram 3 02/12/20 21 Active hydroCHLOROthiazide 25 mg tablet 05/05/20 21 Active benazepriL (LOTENSIN) 40 mg tablet Take 40 mg by mouth daily. 05/05/20 21 Active clobetasoL (TEMOVATE) 0.05 % Cream APPLY CREAM TOPICALLY TO AFFECTED AREA TWICE DAILY NEEDED FOR RADIATION INDUCED RASH 12/03/19 22 Active pantoprazole (Protonix) 40 mg Tablet, Delayed Release (E.C.) Take 1 Tablet (40 mg) by mouth daily. Continue for 3 months. 30 Tablet 2 04/05/20 22 Active ondansetron (Zofran) 8 mg Tablet Take 1 Tablet (8 mg) by mouth every 8 hours as needed for Nausea/Emesis. 90 Tablet 3 07/16/19 23 Active potassium chloride (KLOR-CON) 20 mEq Extended Release tablet Take 1 Tablet (20 mEq) by mouth daily. 30 Tablet 4 03/23/20 23 Active metFORMIN (GLUCOPHAGE XR) 500 mg Extended Release 24 hour tablet Take 500 mg by mouth daily with breakfast. Active diphenoxylate-atrop ine 2.5 mg-0.025 mg tabletIndications:C ecal cancer (CMS/HCC),Diarrhea due to drug,Diarrhea Take 1 Tablet by mouth 4 times daily as needed for Diarrhea/Loose Stools. 90 Tablet 08/30/19 25 Active ondansetron (ZOFRAN ODT) 4 mg Tablet, Rapid Dissolve Take 1 tablet (4 mg) by mouth 60 minutes prior to each radiation treatment. Dissolve tablet on top of tongue, then swallow with saliva. May take 1 tablet (4 mg) by mouth up to every 12 hours if needed for nausea/vomiting. 10 Tablet 08/30/19 25 Active gabapentin (NEURONTIN) 600 mg tablet Take 1 Tablet (600 mg) by mouth 3 times daily. 90 Tablet 10/11/19 25 Active Active Problems Patient Care Coordination No te Formatting of this note migh t be different from the original. Primary Care: Edin Mota MD Referring Provider: No referring provider defined for this encounter. 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 Pt declined survivorship plan. Terry Colin NP COLORECTAL CANCER TREATMENT SUMMARY AND SURVIVORSHIP PLAN Patient name: Laly Kincaid Patient Patient : 1955 CARE TEAM Medical oncologist: Dr. Edin Hutchinson Surgeon: Dr. Myriam Sotomayor Radiation oncologist: Primary care physician: Dr. Shweta Zaman BUSHEL WORKER: ? Retail Project Merchandiser: ? Palliative care physician: Nurse Navigator: Advanced Practice Nurse: Terry Colin NP Other care team providers: TREATMENT SUMMARY Cancer type/location/histology subtype: Adenocarcinoma of the colon Diagnosis date: 12/09/14 Stage: [] I [] II [x] III [] IV [] Not Applicable Oncotype results if performed: Tumor testing results if performed: EGFR results if performed: Surgery: [] Yes [] No Surgery Date: Surgical procedures/location/findings: Systemic therapy (chemotherapy/hormonal therapy/other): Names of agents used: End Date: Clinical trial: [] Yes [] Appleby of trial: Drugs given and date completed: Radiation: [] Yes [] No Timing: [] Pre-op [] Post-op RT Details/Area of body treated: End date: Persistent symptoms or side effects at completion of treatment: [] Yes [] No (entered types): FOLLOW UP CARE PLAN Need for ongoing (adjuvant) treatment for cancer: [] Yes [] No Additional treatment name: Plan duration: Possible side effects: FAMILIAL CANCER RISK ASSESSMENT Genetic/hereditary risk factors or predisposing conditions: Genetic counseling: [] Yes [] No Genetic testing results: SCHEDULE OF CLINIC VISITS / CANCER SURVEILLANCE / RECOMMENDED TESTS (Who, What, When, and How Often) Coordinating Provider: MEDICAL ONCOLOGIST: Every 3-6 months for the first 3 years; Then every 6 months year 4/5; Then yearly. * Physical exam/labs/CEA/CAT scan chest/abdomen every 3-6 months first 3 years; Yearly CAT scans 4th and 5th year with physical exam and lab and CEA. Other testing as indicated. If rectal cancer, CT of pelvis in addition to CT chest/abdomen. SURGEON: 2 weeks after surgery; Then every 6 months the first year; Then every 6-12 months. * If a complete colonoscopy was not done prior to surgery, one is done soon after recovery from surgery. Colonoscopy at one year from surgery; Year 2 depending on previous colonoscopy findings; Recto-sigmoidoscopy for patients with rectal cancer every 6 months years 2-5. RADIATION ONCOLOGIST: 4-6 weeks after treatment; Then 3 months later; Then as needed. * Physical exam and other tests as indicated on each visit. ROUGE PRESSER: As needed. * Testing as indicated. Please continue to see your primary care provider/COTTON OPENER for all general health care recommended for a female your age. Possible late and/or long chain beamer effects that someone with this type of cancer and treatment may experience: [] neuropathy [] lymphedema [] bowel changes [] hernia [] colostomy [] rectal or bladder irritation [] bowel obstruction [] vaginal stenosis or narrowing [] Sacral insufficiency fracture Cancer survivors may experience issues with the areas listed below. If you have any concerns in these or other areas please speak with your doctors or nurses to find out how you can get help with them. [] Emotional and mental health [] Physical functioning [] Memory or concentration loss [] Fatigue [] Insurance issues [] Parenting [] Spiritual issues [] Weight changes [] School/work [] Fertility [] Stopping smoking [] Financial advice or assistance [] Sexual functioning [] Other A number of lifestyle/behaviors can affect one's ongoing health, including the risk for the cancer coming back or developing another cancer. Discuss these recommendations with your doctor and nurses. [] Tobacco use/cessation [] Alcohol use [] Weight management (loss/gain) [] Diet [] Calcium and vitamin D [] Regular daily weight bearing exercise [] Sunscreen use [] Vaccines [] Lung cancer screening [] Colonoscopy [] Breast cancer screening [] Routine dental exam [] Well woman exam [] Monitoring of blood pressure, cholesterol, and glucose monitoring CALL YOUR DOCTOR RECOMMENDATIONS For anything that represents a brand-new symptom, a persistent symptom, or anything that you are worried about that might be related to your cancer coming back. OTHER COMMENTS REFERRALS [] Star [] [facility] Integrative Therapy [] [facility] Pastoral Services [] Other (Specify): ADDITIONAL RESOURCES Patients may have many questions and concerns after their cancer treatment ends. A list of local resources as provided below to assist you. [facility] cancer information center: [place] [employer] Society (ACS): www.acs.org National Cancer Chil[place] (NCI): www.cancer.gov [place] Society of clinical oncology (ASCO): www.cancer.net K[employer]: [email or web address].Tri-[email or web address]: [email or web address] Brown Radiation therapy: www.rtanswers.org Patient signature: CREDIT RISK REVIEW OFFICER signature: Date delivered on: 60 minutes of time were spent delivering this cancer treatment summary and survivorship plan. 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 MRSA (methicillin resistant Staphylococcus aureu s) 09/01/2010 Overview (09/01/2010): Mar 2010 Acquired hypothyroidism 01/16/2009 HTN (hypertension) 01/16/2009 Overview (07/21/2010): Updating IMO/ICD9 Code and Description Depression 01/16/2009 S/P APURVA-BSO 01/16/2009 Obesity (BMI 30.0-39.9) 01/16/2009 Resolved Problems Problem Noted Date Diagnosed Date Resolved Date Breast cancer 01/16/2009 07/30/2015 Overview (05/14/2013): 09/30/07 Stage I (T1cN0 Mx) IDC RIGHT breast ER 95% NC - HER2/ajit - Ki67 15% S/p lumpectomy and SLND S/p TC x 4 finished 01/10/08 Radiation complete 02/23/08 03/06/08 TMX X 5 Assessment & Plan (05/14/2013 2:19 PM HEALTH INFORMATICS SPECIALIST): 5 1/2 years out OFF TMX mammo September Assessment & Plan (04/21/2012 9:56 AM CDT): 4 1/2 yrs On TMX 4 years Scar tissue near brachy site; rash lower breast (rign worm?) ?Psoriasis? ROV 1 year lymphedma mammo august Assessment & Plan (05/07/2011 3:03 PM HEALTH INFORMATICS SPECIALIST): 3 1/2 years out On TMX Discussed AIs; APURVA/BSO; she doesn't want to switch ROV 1 year Lymphedema upper arm and breast Mammo August TIred; TSH off; ECHO wnl, vit D def BMD osteopenia Assessment & Plan (11/16/2010 12:05 PM CDT): 3 yrs out Chronic infection still; ear, strep, MRSA, etc On Abx since Feb hjasn't seen ID yet Assessment & Plan (05/07/2010 2:11 PM HEALTH INFORMATICS SPECIALIST): 2 1/2 yrs out Mammogram in August MRSA betw legs, on Zpac and septra No blood work drawn - TSH was 46 in ER Recheck labs ROV 6 months Assessment & Plan (11/11/2009 3:12 PM CDT): 2 years out Involved in Relay for LIfe Doing well TMX ok but hot flashes Mammogram 09/17/09 negative Check labs and vit D ROV 6 months Assessment & Plan (04/18/2009 4:24 PM CDT): Mammogram in January negative. Doing well PLAN: ROV May Mammogram in Jul with DMR Fascial massage if stiffness on left continues Check labs at ROV Assessment & Plan (01/17/2009 10:35 AM CDT): Here for follow up. Is doing well with TMX for her ER+NC- tumor. Had b/l mammogram in Jul KASH PLAN: cont TMX Needs right sided mammogram in January and b/l in Jul with DMR visit. ROV 3 months. (no RT followup) Encounters Date Type Department Care Team Description 11/05/2024 Orders Only [facility] Oncology and Hematology - [address] [place] [phone] Real Amaro MD Cecal cancer ([facility]) 11/01/2024 Orders Only [facility] Oncology and Hematology - [address] [place] [phone] Real Amaro MD 10/22/2024 Orders Only [facility] Oncology and Hematology - [address] [place] [address] Real Amaro MD Cecal cancer ([facility]) 10/10/2024 8:30 AM CDT Office Visit [facility] Oncology and Hematology - [address] [place] [address] Real Amaro MD Cecal cancer ([facility]) (Primary Dx) 10/09/2024 External Device Data STL ABSTRACTION Provider, Abstract 10/08/2024 Orders Only [facility] Oncology and Hematology - [address] [place] [phone] Real Amaro MD Cecal cancer ([facility]/HCC) 09/24/2024 Orders Only [facility] Oncology and Hematology - [address] [place] [address] Real Amaro MD Cecal cancer ([facility]) 09/10/2024 Orders Only [facility] Oncology and Hematology - [address] [place] [address] Real Amaro MD Cecal cancer (CMS/HCC) 08/29/2024 8:45 AM HEALTH INFORMATICS SPECIALIST Office Visit [facility] Oncology and Hematology [facility] [address] [place] [address] Real Amaro MD Cecal cancer ([facility]/HCC) (Primary Dx); Diarrhea due to drug; Diarrhea 08/29/2024 Orders Only [facility] Oncology and Hematology [facility] [address] [place] [address] Real Amaro MD 08/27/2024 Orders Only [facility] Oncology and Hematology [facility] [address] [place] [address] Real Amaro MD Cecal cancer (CMS/HCC) from Last 3 Months Immunizations Immunization Administration Dates Next Due Influenza Seasonal Unspecified Formulation IM Family History Medical History Relation Name Comments Healthy Daughter COPD Father diabetes Heart Disease Mother Colon Cancer Paternal Aunt Cancer Paternal Grandfather stomach Colon Cancer Paternal Grandfather Breast Cancer Neg Hx Ovarian Cancer Neg Hx Relation Name Status Comments Daughter Alive Father Mother Paternal Aunt Paternal Grandfather Social History Tobacco Use Types Packs/Day Years Used Date Smoking Tobacco: Never Smokeless Tobacco: Never Tobacco Cessation:Counseling Given: Not Answered Alcohol Use Standard Drinks/Week Comments Yes 0 (1 standard drink = 0.6 oz pur e alcohol) 1/3MO Comments No Sex and Gender Information Value Date Recorded Sex Assigned at Not on file Legal Sex Female 5:39 AM HEALTH INFORMATICS SPECIALIST Gender Identity Not on file Sexual Orientation Not on file Occupation Industry Job Start Date Job End Date Not on file Not on file Not on file Not on file Last Filed Vital Signs Vital Sign Reading Time Taken Comments Blood Pressure 129/78 10/10/2024 8:36 AM CDT Pulse 66 10/10/2024 8:36 AM CDT Temperature 36.3 C (97.4 F) 10/10/2024 8:36 AM CDT Respiratory Rate 15 10/10/2024 8:36 AM CDT Oxygen Saturation 95% 10/10/2024 8:36 AM CDT Inhaled Oxygen Concentration - - Weight 100.4 kg (221 lb 6.4 oz) 10/10/2024 8:36 AM CDT Height 157.5 cm (5' 2 ) 03/22/2022 7:06 AM CDT Body Mass Index 40.49 03/22/2022 7:06 AM CDT Plan of Treatment Upcoming Encounters Date Type Department Care Team (Late st Contact Info) Description 11/21/2024 9:00 AM CDT Office Visit [facility] Oncology and Hematology - [place] [address] [facility] [address] [place] [address] Real Amaro MD [address] [facility] [address] [place] [address] Health Maintenance Due Date Last Done Comments DIABETES MICROALBUMIN ANNUAL SCREEN 1975 LDL CHOLESTEROL ANNUAL 1975 RSV VACCINE (60+ or ) (1 - Risk 60-74 years 1-dose series) 2017 COVID-19 Vaccine (3 - Pfizer risk series) 10/13/2020 09/15/2020, 08/25/2020 ZOSTER VACCINE (2 of 2) 09/14/2022 07/20/2022 COLORECTAL SCREENING 07/23/2024 07/23/2019, 07/23/2019, 07/23/2019, Additional history exists BREAST CANCER SCREENING 11/21/2024 11/22/19 24, 01/25/2020, 01/25/2020, Additional history exists DIABETES HBA1C Q 6 MONTHS 12/27/20242024, 06/25/2024, 03/13/2024, Additional history exists DIABETES ANNUAL RETINAL EXAM 04/18/2025 04/18/2024 DIABETES ANNUAL FOOT EXAM 06/25/2025 06/25/2024 OSTEOPOROSIS SCREENING 03/03/2027 03/03/2022 DTAP/TDAP/TD VACCINES (3 - T d or Tdap) 04/05/2033 04/05/2023, 10/16/2018 PNEUMOCOCCAL VACCINE 50+ YEARS Completed 07/20/2022 INFLUENZA VACCINE Completed 04/18/2024, , 04/12/2019, Additional history exists Medical Devices Explanted Type Area Pharm Spec Device Identifier Shelf Expiration Date Model / Serial / Lot Port Pwrprt Isp Clrvu 8fr [id number] - [id number] Implanted:Qty: 1 on 02/03/2015 by Myriam Sotomayor MD at [facility] Explanted:Qty: 1 on 10/13/2015 at [facility] Port Left: Chest CR [employer] 05/24/2016 [id number] / / [id number] Description:placement left I J Procedures Procedure Name Priority Date/Time Associated Diagnosis Comments BASIC METABOLIC PANEL Routine 10/31/2024 10:38 AM CDT COMPREHENSIVE METABOLIC PANEL Routine 10/31/2024 10:37 AM CDT BASIC METABOLIC PANEL Routine 08/29/2024 12:32 PM HEALTH INFORMATICS SPECIALIST MAMMO BILAT DIAGNOSTIC Routine 9:21 AM CDT COLONOSCOPY REPORT 07/23/2019 7: 46 AM HEALTH INFORMATICS SPECIALIST HEMOGLOBIN A1C Routine 08/06/2015 7:39 AM HEALTH INFORMATICS SPECIALIST Toxic neuropathy Impaired glucose metabolism from Last 3 Months or Most Recently Relevant to Health Maintenance Results * BASIC METABOLIC PANEL (10/31/2024 10:38 AM CDT) Only the most recent of2 resultswithin the time period is included. Blood us Real Amaro MD CHEMISTRY ORDERABLES Final Resu lt * COMPREHENSIVE METABOLIC PANEL (10/31/2024 10:37 AM CDT) Blood us Real Amaro MD CHEMISTRY ORDERABLES Final Resu lt * MAMMO BILAT DIAGNOSTIC (11/22/2023 9:21 AM CDT) Anatomical Region Laterality Modality Breast Bilateral Mammography us Real Amaro MD MAMMO ORDERABLES Final Result * COLONOSCOPY REPORT (07/23/2019 7:46 AM HEALTH INFORMATICS SPECIALIST) Narrative Procedure Note Sita Carvajal MD - 07/23/2019 7:45 AM CST [facility] Endoscopy Patient Name: Laly Kincaid Procedure Date: 07/23/2019 Date of : 1955 Admit Type: Outpatient Attending MD: Sita Carvajal MD Procedure: Colonoscopy Indications: High risk colon cancer surveillance: Personal history of colon cancer Providers: Sita Carvajal MD Referring MD: Medicines: Propofol per Anesthesia Complications: No immediate complications. Procedure: Informed consent was obtained for the procedure, including moderate sedation after risks were discussed. Based on the pre-procedure assessment, including review of the patient's medical history, medications, allergies, and review of systems, the patient was deemed to be an appropriate candidate for sedation. A timeout was performed. Continuous ECG monitoring, pulse oximetry, blood pressure monitoring, and direct observation were performed. The Colonoscope was introduced through the anus and advanced to the ileocolonic anastomosis. The colonoscopy was performed without difficulty. The patient tolerated the procedure well. The quality of the bowel preparation was adequate to identify polyps. Estimated Blood Loss: Estimated blood loss: none. Findings: The perianal and digital rectal examinations were normal. The chad-terminal ileum appeared normal. There was evidence of a prior [id number] ileo-colonic anastomosis in the proximal transverse colon. This was patent and was characterized by healthy appearing mucosa. The anastomosis was traversed. A 3 mm polyp was found in the sigmoid colon. The polyp was flat. The polyp was removed with a piecemeal technique using a cold biopsy forceps. Resection and retrieval were complete. The exam was otherwise without abnormality on direct and retroflexion views. Impression: - The examined portion of the ileum was normal. - Patent [id number] ileo-colonic anastomosis, characterized by healthy appearing mucosa. - One 3 mm polyp in the sigmoid colon, removed piecemeal using a cold biopsy forceps. Resected and retrieved. - The examination was otherwise normal on direct and retroflexion views. Recommendation: - Await pathology results. - Repeat colonoscopy in 3 - 5 years for surveillance based on pathology results. Sita Carvajal MD 07/23/2019 7:45:04 AM This report has been signed electronically. Number of Addenda: [address]; [place] [address] Sita Carvajal MD GI PROCEDURE ORDERABLES Final Result * HEMOGLOBIN A1C (08/06/2015 7:39 AM HEALTH INFORMATICS SPECIALIST) HEMOGLOBIN A1C 6.0 4.0 - 6.0 % 08/06/2015 2:55 PM HEALTH INFORMATICS SPECIALIST [facility] Comment:Note: Effective as o f 07/18/2014 a new methodology, Turbidimetric inhibition immunoassay (TINIA),has been implemented. EST. AVG GLUCOSE, A1C 126 mg/dL 08/06/2015 2:55 PM HEALTH INFORMATICS SPECIALIST [facility] [employer] [facility] Blood Venipuncture - L ab Collect / Unknown 08/06/2015 7:39 AM HEALTH INFORMATICS SPECIALIST 08/06/2015 7:39 AM HEALTH INFORMATICS SPECIALIST Vivien Atkins MD CHEMISTRY ORDERABLES Final Result [facility] CLIA# [id number] [address] [place] [address] from Last 3 Months or Most Recently Relevant to Health Maintenance Insurance [employer] OPEN ACCESS HMO AETNA O [facility] AENA O MCR Advance Directives For more information, please contact: [phone] * Full Code (Latest Code Status on File) Date Activated Date Inactivated Comments 07/23/2019 6:41 AM 07/23/2019 10:27 AM * Full Code Date Activated Date Inactivated Comments 10/13/2015 8:23 AM 10/13/2015 11:16 AM * Full Code Date Activated Date Inactivated Comments 02/03/2015 9:00 AM 02/03/2015 5:46 PM * Full Code Date Activated Date Inactivated Comments 12/24/2014 2:12 PM 12/27/2014 1:52 PM * Full Code Date Activated Date Inactivated Comments 12/24/2014 7:36 AM 12/24/2014 2:12 PM Care Teams Finisher Map And Chart Relationship Specialty Start Date End Date Zahida Leahy FNP PCP - General Nurse Practitioner Family 10/15/20
--- OUTSIDE RECORDS SUMMARY | 2024-11-14 09:44 | XMS_ITS ---
Author Organization [employer] [address] [place] [address] [place] [id number] Care Team Providers Care Regional Extension Service Specialist Name Role Phone Zahida Leahy Travis ATOMIZER ASSEMBLER Primary Care Provider [phone] Active Problems Patient Care Coordination No te [...] oncologist: Primary care physician: Dr. Shweta Zaman QUALITY MANAGEMENT NURSE: ? Clinical Product Manager: ? Palliative care physician: Nurse Navigator: Advanced Practice Nurse: Terry Nobs LINE TESTER Other care team providers: TREATMENT SUMMARY Cancer [...] End Date: Clinical trial: [] Yes [] [place] of trial: Drugs given and date completed: [...] other tests as indicated on each visit. PHOTOENGRAVING PROOFER: As needed. * Testing as indicated. Please continue to see your primary care provider/BOAT OUTFITTING SUPERVISOR for all general health care recommended for a female your age. Possible late and/or continuous churn buttermaker effects that someone with this type of [...] OTHER COMMENTS REFERRALS [] [facility] [] [facility] [] [facility] [] Other (Specify): ADDITIONAL RESOURCES Patients may have many questions and concerns after their cancer treatment ends. A list of local resources as provided below to assist you. [facility] cancer information center: [place] [employer] (ACS): www.acs.org National Cancer [place] (NCI): www.cancer.gov [place] [employer] of clinical oncology (ASCO): www.cancer.net [employer]: www.komen.org [employer]: www.[employer]Med[employer]r.[employer] Radiation therapy: www.rtanswers.org Patient signature: LINE TESTER signature: Date delivered on: 60 minutes of time were spent delivering this cancer treatment summary and survivorship plan. 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 Past Treatment and Therapy Plans ONCOLOGY THERAPY PLAN Plan Name Start Date Discontinue Date Treatment Medications Discontinue Reason Plan Provider BLANK SUPPORTIVE CARE THERAPY PLAN 02/27/2015 12/18/2015 No medications scheduled. Other Edin Hutchinson MD ONCOLOGY TREATMENT Plan Name Start Date Discontinue Date Treatment Medications Discontinue Reason Plan Provider Cycles OP ONC COLON_F OLFOXM 02/25/2015 12/18/2015 fluorouracil (5-FU) continuous infusionfluoruracil (5-FU) injectable syringeleucovorin (WELLCOVORIN) IVPBoxaliplatin (ELOXATIN) IVPB Other Edin Hutchinson MD 11 of 11 cycles started OP ONC COLON_C APECITA BINE_OX ALIPLAT IN 5 02/18/2015 oxaliplatin (ELOXATIN) IVPB Not Tolerated Edin Hutchinson MD 1 of 8 cycles started Lifetime Dose Tracking * Chemical Lifetime Dose Automatic Entry Manual Entr y Effective Dose 104.5 mSv 104.5 mSv 0 mSv Total DLP 8,121 DLP 8,121 DLP 0 DLP CTDIvol Max 114.1 mGy 114.1 mGy 0 mGy CTDIvol Min 81.2 mGy 81.2 mGy 0 mGy Resolved Problems Problem Noted Date Diagnosed Date Resolved Date Breast cancer 01/16/2009 07/30/2015 Overview (05/14/2013): 09/30/07 Stage I (T1cN0 Mx) IDC RIGHT breast ER 95% NM - HER2/ajit - Ki67 15% S/p lumpectomy and SLND S/p TC x 4 finished 01/10/08 Radiation complete 02/23/08 03/06/08 TMX X 5 Assessment & Plan (05/14/2013 2:19 PM PROCESS PUMPER): 5 1/2 years out OFF TMX mammo September Assessment & Plan (04/21/2012 9:56 AM CDT): 4 1/2 yrs On TMX 4 years Scar tissue near brachy site; rash lower breast (rign worm?) ?Psoriasis? ROV 1 year lymphedma mammo august Assessment & Plan (05/07/2011 3:03 PM PROCESS PUMPER): 3 1/2 years out On TMX Discussed [...] yet Assessment & Plan (05/07/2010 2:11 PM PROCESS PUMPER): 2 1/2 yrs out Mammogram in August [...] Is doing well with TMX for her ER+NM- tumor. Had b/l mammogram in Jul KASH PLAN: cont TMX Needs right sided mammogram in January and b/l in Jul with DMR visit. ROV 3 months. (no RT followup)
--- OUTSIDE RECORDS SUMMARY | 2024-11-14 09:44 | XMS_ITS | Clinical Summary ---
Author Organization [facility] Medical Office Building [address] Address [address] [place] [address] Care Team Providers Care Information Technology Consultant Name Role Phone Savana Sanchez NP Primary Care Provider [phone] Allergies No known active allergies Medications loratadine (CLARITIN) 10 mg tablet take 1 tablet by oral route every day 0 0 4 Active diphenoxylate-a tropine (LOMOTIL) 2.5-0.025 mg per tablet Take 1 tablet by mouth every 6 hours as needed 6 Active gabapentin (NEURONTIN) 600 mg tablet 1 Active lidocaine-prilo dawn cream 1 Active potassium chloride ER (KLOR-CON) 20 mEq CR tablet Take 1 tablet (20 mEq total) by mouth daily 2 Active ondansetron (ZOFRAN) 8 mg tablet 3 Active atorvastatin (LIPITOR) 10 mg tablet Take 1 tablet (10 mg total) by mouth daily 90 tablet 3 3 Active albuterol HFA (PROVENTIL HFA,VENTOLIN HFA,PROAIR HFA) 90 mcg/actuation inhalerIndicati ons:COVID-19 Inhale 2 puffs every 6 (six) hours as needed for shortness of breath 18 g 3 Active neomycin-polymy marquise-HC (CORTISPORIN) 3.5-10,000-1 mg/mL-unit/mL-% otic suspensionIndic ations:Acute diffuse otitis externa of right ear Administer 2 drops into the right ear 3 (three) times a day 10 mL 3 Active fluticasone propionate (FLONASE) 50 mcg/actuation nasal sprayIndication s:Acute effusion of right ear Administer 2 sprays into each nostril daily 16 g 3 Active blood glucose diagnostic (glucose blood) stripIndication s:Type 2 diabetes mellitus without complication, without long-term current use of insulin ([facility]) Check blood sugar once a day 100 each 11 4 Active blood-glucose meter kitIndications: Type 2 diabetes mellitus without complication, without long-term current use of insulin ([facility]) 1 Device daily 1 kit 4 Active lancets 33 gauge miscIndications :Type 2 diabetes mellitus without complication, without long-term current use of insulin ([facility]) 1 Lancet daily 100 each 11 4 Active levothyroxine (SYNTHROID) 200 mcg tablet Take 1 tablet (200 mcg total) by 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 inspector before breakfast 60 tablet 3 4 Active Jardiance 25 mg tablet Take 1 tablet (25 mg total) by mouth daily 30 tablet 5 4 Active benazepriL (LOTENSIN) 40 mg tablet Take 1 tablet (40 mg total) by mouth daily 90 tablet 3 4 Active citalopram (CeleXA) 40 mg tablet Take 1 tablet (40 mg total) by mouth daily 90 tablet 3 4 Active clonazePAM (KlonoPIN) 0.5 mg tablet Take 1 tablet (0.5 mg total) by mouth 2 (two) times a day as needed for anxiety 60 tablet 1 4 Active hydroCHLOROthia zide (HYDRODIURIL) 25 mg tablet Take 1 tablet (25 mg total) by mouth daily 90 tablet 3 4 04/18/20 25 Active clobetasoL (TEMOVATE) 0.05 % creamIndication s:Rash Apply topically 2 (two) times a day 30 g 4 Active Active Problems Problem Noted Date Diagnosed Date Class 2 severe obesity with serious comorbidity and body mass index (BMI) of 39.0 to 39.9 in adult 04/19/2024 Assessment & Plan (04/19/2024 11:23 AM CDT): BMI 39.62, This is a chronic condition which continues With 6 lbs. weight loss since last office visit Encouraged healthy eating which includes a low carb diet. Avoiding processed foods, sweets and fried foods. Encouraged 30 minutes of walking at least 5 days per week Discussed that exercise can be broken down into small sessions- for example 2- 15 minutes sessions or 3- 10 minutes sessions. Continue weight loss. Immunization due 04/19/2024 Post-menopausal 04/19/2024 Need for hepatitis B screening test 04/19/2024 Type 2 diabetes mellitus with hyperglycemia 02/25 Assessment & Plan (04/19/2024 7:39 AM CDT): Now followed by endocrinology. Retina scan in office today. Morbid (severe) obesity due to excess calories 0 10/05/2023 Body mass index 40.0-44.9, adult ([facility]) 10/04 Acute non-recurrent maxillary sinusitis 10/05/19 Assessment & Plan (10/05/2023 4:07 PM CDT): Start on cephalexin 500 mg b.i.d. times 10 days. Continue Flonase daily and can resume Claritin. Saline nasal spray/rinse as discussed Anxiety 10/05/2023 Assessment & Plan (10/05/2023 4:07 PM CDT): . Stable continue clonazepam 0.5 mg b.i.d. p.r.n. Screening for colon cancer 10/05/2023 Annual physical exam 07/21/2022 Assessment & Plan (07/21/2022 4:19 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): Patient Counseling: --Nutrition: Stressed importance of moderation in sodium/caffeine intake, saturated fat and cholesterol, caloric balance, sufficient intake of fresh fruits, vegetables, --Exercise: Stressed the importance of regular exercise. --Continue routine dental and vision visits --Immunizations reviewed and offered Updated Shingrix and Pneumovax today -- Discussed benefits of screening colonoscopy.- starting at age 45-50: not indicated -- (females- mammograms offered if applicable/ needed., starting at age 40: as ordered above) -Routine labs/ screenings Labs are pending. Ordered today, reviewed previous labs from [facility] in care everywhere Major depressive disorder, recurrent, mild 06/03 Assessment & Plan (10/05/2023 4:06 PM CDT): Stable. Continue citalopram 40 mg daily Assessment & Plan (01/20/2023 8:59 PM CDT): Stable on citalopram and clonazepam prn. I checked their [employer] THERMODYNAMICS TEACHER sheet, and it was consistent with prescribed medications. F/u 6 months Assessment & Plan (07/21/2022 4:19 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): Stable. Overall doing well. Using clonazepam about once a day. Will continue current medications and have her follow-up in 6 months Assessment & Plan (12/02/2021 2:34 PM CDT): Stable on citalopram 40mg daily. Uses clonazepam sparingly prn. Mostly in evenings. I checked their [employer] THERMODYNAMICS TEACHER sheet, and it was consistent with prescribed medications. F/u 6 months Assessment & Plan (06/03/2021 1:45 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): Stable on current medication. Continue citalopram as ordered. Uses clonazepam sparingly. Renal given. May follow up in 6 months. I checked their [place] THERMODYNAMICS TEACHER sheet, and it was consistent with prescribed medications. Vitamin D deficiency 01/31/2020 Assessment & Plan (10/05/2023 4:06 PM CDT): Vitamin-D level ordered Assessment & Plan (12/02/2020 1:51 PM CDT): Being managed by endocrinology and oncology now. Patient is taking vitamin-D supplements daily Assessment & Plan (08/04/2020 1:20 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): Patient has not been taking her vitamin D Last level was 18 on 01/25/20 Plan: Stressed on compliance Start back on Vitamin D3 to 2000 international units /day Take vitamin D with food. Assessment & Plan (01/31/2020 1:45 PM CDT): Patient has been using OTC Vitamin D3- 1000 international units /day Last level was 18 on 01/25/20 Plan: Stressed on compliance Increase Vitamin D3 to 2000 international units /day Take vitamin D with food. Mixed hyperlipidemia 10/12/2018 Assessment & Plan (10/05/2023 4:05 PM CDT): Continue atorvastatin 10 mg at HS and to limit fats in diet. Lipid panel ordered. Assessment & Plan (01/20/2023 8:58 PM CDT): Lipid abnormalities are stable, reviewed previous lipid levels in [facility]. Pharmacotherapy as ordered. Order for lipid panel was given today to be obtained. Pt voiced understanding of lab drawn and continuation of current medication regimen. Assessment & Plan (07/21/2022 4:17 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): Lipid abnormalities are stable, reviewed previous lipid levels in [facility]. Pharmacotherapy as ordered. Order for lipid panel was given today to be obtained. Pt voiced understanding of lab drawn and continuation of current medication regimen. Assessment & Plan (12/02/2021 2:33 PM CDT): Stable. Medications renewed. Lipid panel ordered. F/u 6 months Assessment & Plan (06/03/2021 1:46 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): Lipid abnormalities are stable, reviewed previous lipid levels in [facility]. Pharmacotherapy as ordered. Assessment & Plan (12/02/2020 1:50 PM CDT): Lipid abnormalities are stable, reviewed previous lipid levels in [facility]. Pharmacotherapy as ordered. Order for lipid panel was given today to be obtained. Pt voiced understanding of lab drawn and continuation of current medication regimen. Assessment & Plan (06/03/2020 3:22 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): Lipid abnormalities are stable. Pharmacotherapy as ordered. Lipids will be reassessed in 6 months. Assessment & Plan (12/08/2019 9:52 PM CDT): Lipid abnormalities are stable. Pharmacotherapy as ordered. Lipids will be reassessed in 6 months. Assessment & Plan (04/12/2019 1:48 PM CDT): Lipid abnormalities are stable. - due for labs- order given Pharmacotherapy as ordered. Lipids will be reassessed in 6 months. Assessment & Plan (10/15/2018 5:51 PM CDT): Lipid abnormalities are improving with treatment. Pharmacotherapy as ordered. Lipids will be reassessed in 6 months. 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 Terry Colin NP COLORECTAL CANCER TREATMENT SUMMARY AND SURVIVORSHIP PLAN Patient name: Lina Kincaid Patient Patient : 1955 CARE TEAM Medical oncologist: Dr. Edin Hutchinson Surgeon: Dr. Myriam Sotomayor Radiation oncologist: Primary care physician: Dr. Shweta Zaman MARINE STRUCTURAL WELDER: ? Contract Post Office Clerk: ? Palliative care physician: Nurse Navigator: Advanced Practice Nurse: Terry Colin NP Other care team providers: TREATMENT SUMMARY Cancer type/location/histology subtype: Adenocarcinoma of the colon Diagnosis date: 12/09/14 Stage: I II III IV Not Applicable Oncotype results if performed: Tumor testing results if performed: EGFR results if performed: Surgery: Yes No Surgery Date: Surgical procedures/location/findings: Systemic therapy (chemotherapy/hormonal therapy/other): Names of agents used: End Date: Clinical trial: Yes [place] of trial: Drugs given and date completed: Radiation: Yes No Timing: Pre-op Post-op RT Details/Area of body treated: End date: Persistent symptoms or side effects at completion of treatment: Yes No (entered types): FOLLOW UP CARE PLAN Need for ongoing (adjuvant) treatment for cancer: Yes No Additional treatment name: Plan duration: Possible side effects: FAMILIAL CANCER RISK ASSESSMENT Genetic/hereditary risk factors or predisposing conditions: Genetic counseling: Yes No Genetic testing results: SCHEDULE OF CLINIC [...] other tests as indicated on each visit. AUTO MECHANIC APPRENTICE: As needed. * Testing as indicated. Please continue to see your primary care provider/LIFE ENRICHMENT ASSISTANT for all general health care recommended for a female your age. Possible late and/or terminologist effects that someone with this type of cancer and treatment may experience: neuropathy lymphedema bowel changes hernia colostomy rectal or bladder irritation bowel obstruction vaginal stenosis or narrowing Sacral insufficiency fracture Cancer survivors may experience issues with the areas listed below. If you have any concerns in these or other areas please speak with your doctors or nurses to find out how you can get help with them. Emotional and mental health Physical functioning Memory or concentration loss Fatigue Insurance issues Parenting Spiritual issues Weight changes School/work Fertility Stopping smoking Financial advice or assistance Sexual functioning Other A number of lifestyle/behaviors can affect one's ongoing health, including the risk for the cancer coming back or developing another cancer. Discuss these recommendations with your doctor and nurses. Tobacco use/cessation Alcohol use Weight management (loss/gain) Diet Calcium and vitamin D Regular daily weight bearing exercise Sunscreen use Vaccines Lung cancer screening Colonoscopy Breast cancer screening Routine dental exam Well woman exam Monitoring of blood pressure, cholesterol, and glucose monitoring CALL YOUR DOCTOR RECOMMENDATIONS For anything that represents a brand-new symptom, a persistent symptom, or anything that you are worried about that might be related to your cancer coming back. OTHER COMMENTS REFERRALS [facility] Integrative Therapy [facility] Pastoral Services Other (Specify): ADDITIONAL RESOURCES Patients may have many questions and concerns after their cancer treatment ends. A list of local resources as provided below to assist you. [place] cancer information center: [place] [employer] (ACS): www.acs.org National Cancer [place] (NCI): www.cancer.gov [place] Society of clinical oncology (ASCO): www.cancer.net K[employer]: www.komen.org Livestrong: Coolstuff.MoventronCubeit.fm Radiation therapy: www.rtanswers.org Patient signature: HAND SIZER signature: Date delivered on: 60 minutes of time were spent delivering this cancer treatment summary and survivorship plan. Images from the original note were not included. Pt declined survivorship plan. Terry Colin NP COLORECTAL CANCER TREATMENT SUMMARY AND SURVIVORSHIP PLAN Patient name: Lina Kincaid Patient Patient : 1955 CARE TEAM Medical oncologist: Dr. Edin Hutchinson Surgeon: Dr. Myriam Sotomayor Radiation oncologist: Primary care physician: Dr. Shweta Zaman MARINE STRUCTURAL WELDER: ? Contract Post Office Clerk: ? Palliative care physician: Nurse Navigator: Advanced [...] End Date: Clinical trial: [] Yes [] [place] of trial: Drugs given and date completed: [...] other tests as indicated on each visit. AUTO MECHANIC APPRENTICE: As needed. * Testing as indicated. Please continue to see your primary care provider/LIFE ENRICHMENT ASSISTANT for all general health care recommended for a female your age. Possible late and/or group home effects that someone with this type of [...] back. OTHER COMMENTS REFERRALS [] Star [] [facility] Integrative Therapy [] [facility] Pastoral Services [] Other (Specify): ADDITIONAL RESOURCES Patients may have many questions and concerns after their cancer treatment ends. A list of local resources as provided below to assist you. [facility] cancer information center: [place] [employer] (ACS): www.acs.org National Cancer [place] (NCI): www.cancer.gov [place] Society of clinical oncology (ASCO): www.cancer.net Komen: www.komen.org Livestrong: www.Moventrong.Swagbucks Radiation therapy: www.rtanswers.org Patient signature: HAND SIZER signature: Date delivered on: 60 minutes of time were spent delivering this cancer treatment summary and survivorship plan. Assessment & Plan (06/03/2021 1:39 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): Managed by Oncology at [facility]. 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 She will continue care with Zulma Aguilar NP Endocrinology after she opens at her new location. TSH ordered Assessment & Plan (03/07/2023 1:39 PM CDT): Diagnosed at the age of 22. Not controlled with last TSH was high at 36 on 12/03/22 Levothyroxine was increased in November. Plan: Continue same dose of levothyroxine 175 mcg/day The proper way of taking Levothyroxine reviewed with patient . Use the iron in pm Check TSH. I will adjust the dose if needed Assessment & Plan (08/31/2022 1:34 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): Diagnosed at the age of 22. Not controlled with last TSH was high at 87 on 03/02/22 Plan: Continue same dose of levothyroxine 137 mcg/day The proper way of taking Levothyroxine reviewed with patient . Use the iron in pm Check TSH in 4 weeks I will adjust the dose if needed Assessment & Plan (03/02/2022 1:22 PM CDT): Diagnosed at the age of 22. She has been on high doses of Levothyroxine up to 400 mcg/day, partly due to non-compliance with medication. She is doing much better and now requiring much less medication. Patient is clinically euthyroid Last TSH was normal at 2.17 on 08/28/21 Plan: Continue same dose of levothyroxine. The proper way of taking Levothyroxine reviewed with patient . Check TSH I will adjust the dose if needed Assessment & Plan (08/28/2021 1:18 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): Diagnosed at the age of 22. She has been on high doses of Levothyroxine up to 400 mcg/day, partly due to non-compliance with medication. She is doing much better and now requiring much less medication. Patient is clinically euthyroid Last TSH was normal at 3.3 on 10/27/20 Plan: Continue same dose of levothyroxine. The proper way of taking Levothyroxine reviewed with patient . Check TSH I will adjust the dose if needed Assessment & Plan (06/03/2021 1:38 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): Managed by endocrinologyValentine Pace. Assessment & Plan (02/09/2021 1:46 PM CDT): Diagnosed at the age of 22. She has been on high doses of Levothyroxine up to 400 mcg/day, partly due to non-compliance with medication. She is doing much better and now requiring much less medication. Patient is clinically euthyroid Last TSH was normal at 3.3 on 10/27/20 Plan: Continue same dose of levothyroxine. The proper way of taking Levothyroxine reviewed with patient . Assessment & Plan (08/04/2020 1:19 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): Diagnosed at the age of 22. She has been on high doses of Levothyroxine up to 400 mcg/day, partly due to non-compliance with medication. She is doing much better and now requiring much less medication. Patient is clinically euthyroid Last TSH was 2.04 on 01/25/2020. Plan: Continue same dose of levothyroxine. The proper way of taking Levothyroxine reviewed with patient . Check TSH I will adjust the dose if needed. Assessment & Plan (01/31/2020 1:43 PM CDT): Diagnosed at the age of 22. She has been on high doses of Levothyroxine up to 400 mcg/day, partly due to non-compliance with medication. She is doing much better and now requiring much less medication. Patient is clinically euthyroid Last TSH was 2.04 on 01/25/2020. Plan: Continue same dose of levothyroxine. The proper way of taking Levothyroxine reviewed with patient . Assessment & Plan (12/27/2017 2:01 PM CDT): tsh <.02 Will be making f/u with Dr. Rivera Assessment & Plan (05/30/2017 8:06 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): TSH is still low. Will refer to endo. Assessment & Plan (03/17/2017 7:39 AM CDT): Her TSH was low. She was on 400mcg synthroid. Will decrease to 350mcg of synthroid. F/u 6-8 weeks with repeat TSH Essential hypertension 01/04/2014 Overview (10/01/2016): Essential hypertension Assessment & Plan (04/19/2024 11:22 AM CDT): BP at goal 115/68. Continue present medications and limit salt in diet Assessment & Plan (10/05/2023 4:04 PM CDT): BP at goal at 120/75. Continue benazepril 40 mg daily, hydrochlorothiazide 25 mg daily. Continue to limit salt in diet Assessment & Plan (03/07/2023 1:49 PM CDT): Controlled with medication - continue treatment plan per PCP Assessment & Plan (01/20/2023 8:58 PM CDT): Stable. Continue current benazepril and hydrochlorothiazide. Assessment & Plan (07/21/2022 4:17 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): Stable/ Improved. Blood pressure is adequately controlled on current medication. We will not make any medication changes today. Will have her follow-up in 6 months for continued monitoring and management Assessment & Plan (12/02/2021 2:33 PM CDT): Improved/ stable. Continue current medications. F/u 6 months Assessment & Plan (06/03/2021 1:46 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): Stable/ Improved. Blood pressure is adequately controlled on current medication. We will not make any medication changes today. Will have her follow-up in 6 months for continued monitoring and management Assessment & Plan (12/02/2020 1:50 PM CDT): Stable/ Improved. Blood pressure is adequately controlled on current medication. We will not make any medication changes today. Will have her follow-up in 6 months for continued monitoring and management I asked her to watch her blood pressure when she is getting chemo at this is it is upper limits of normal today. If blood pressure is elevated then I asked her to call me for re-evaluation Assessment & Plan (06/03/2020 3:22 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): Blood pressure is adequately controlled on current medication. We will not make any medication changes today. Will have her follow-up in 6 months for continued monitoring and management Assessment & Plan (12/08/2019 9:57 PM CDT): Blood pressure is adequately controlled on current medication. We will not make any medication changes today. Will have her follow-up in 6 months for continued monitoring and management Assessment & Plan (04/12/2019 1:49 PM CDT): Blood pressure is elevated today. Pt admits to being out of her medication for the last week. Renewed today. Pt will restart. Will also obtain labs today. Assessment & Plan (10/15/2018 5:52 PM CDT): Hypertension is unchanged. Continue current medications. Ambulatory blood pressure monitoring. Reminded to take medications daily. Blood pressure will be reassessed at the next regular appointment. Follow-up in 6 months Assessment & Plan (12/27/2017 1:54 PM CDT): Hypertension is improving with treatment. Continue current medications. Blood pressure will be reassessed in 3 months Have her continue to monitor blood pressure at home. If continues to run higher than 140/85, will consider increasing blood pressure medication. Assessment & Plan (03/17/2017 7:36 AM CDT): Hypertension Not controlled. Will increase benazepril to 30mg daily and have her f/u 1 month for recheck. She does not want to pursue further testing right now Breast neoplasm 11/10/2013 Overview (09/30/2016): BREAST NEOPLASM NOS Morbid obesity with BMI of 40.0-44.9, adult 12/25 Overview (09/30/2016): Morbid obesity Assessment & Plan (10/05/2023 4:03 PM CDT): BMI 40.74. Discussed healthy diet and need for routine exercise. Patient will work on reducing her caloric intake. Recommend weight loss Assessment & Plan (01/20/2023 8:59 PM CDT): BMI Follow-up includes: exercise counseling. Assessment & Plan (12/08/2019 9:55 PM CDT): BMI Follow-up includes: exercise counseling. Assessment & Plan (04/12/2019 1:47 PM CDT): BMI Follow-up includes: exercise counseling and education provided. Assessment & Plan (12/27/2017 2:03 PM CDT): BMI Follow-up includes: exercise counseling S/P APURVA-BSO 01/16/2009 Resolved Problems Problem Noted Date Diagnosed Date Resolved Date Encounter for screening mamm ogram for malignant neoplasm of breast 10/05/2023 04/19/2024 Assessment & Plan (10/05/2023 4:07 PM CDT): Mammogram ordered Screening for diabetes mellitus 10/05/2023 04/19/2024 Major depressive disorder, r ecurrent, moderate 06/03/2021 06/03/2021 Major depressive disorder, r ecurrent, unspecified 06/03/2021 06/03/2021 Morbid obesity with BMI of 40.0-44.9, adult 10/15/2018 12/08/2019 Assessment & Plan (10/15/2018 5:51 PM CDT): BMI Follow-up includes: exercise counseling. Encounter for hepatitis C sc reening test for low risk patient 10/12/2018 04/12/2019 Intrinsic atopic dermatitis 04/04/2018 06/03/2021 Assessment & Plan (04/04/2018 8:14 PM CDT): Try triam. Cream twice daily for 3-4 weeks, then should back off x 2-3 weeks. Continue to use lotion, vaseline over it Obesity (BMI 30-39.9) 12/27/20172018 Assessment & Plan (12/27/2017 2:03 PM CDT): BMI Follow-up includes: exercise counseling. She has lost a few pounds since she has been more active with the kids and because of the stress of her brother in law dying Lipid screening 12/15/2017 12/27/2017 Cellulitis 05/30/2017 12/27/2017 Assessment & Plan (05/30/2017 8:18 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): Will go ahead and start antibiotics. She has a hx of mrsa. Treat with septra. 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 Will renew clobetasol cream per patient request. Uses p.r.n. Assessment & Plan (05/24/2017 5:00 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): Having a lot of itching with dry spot. Will try steroid cream. Major depressive episode 01/04/201401/2021 Overview (10/01/2016): Single major depressive episode Assessment & Plan (12/02/2020 1:53 PM CDT): Stable on current medication. Continue citalopram and clonazepam as ordered. May follow up in 6 months Patient states she still doing okay on current medications. Uses clonazepam sparingly. May call me for refills as needed. 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 Continue clonazepam and citalopram as ordered. May follow up in 6 months Assessment & Plan (12/08/2019 10:00 PM CDT): Stable. Continue citalopram. Uses clonazepam periodically. Assessment & Plan (10/15/2018 5:53 PM CDT): Psychological condition is improving with treatment. Continue current treatment regimen. Psychological condition will be reassessed Six months Situation has stabilized at home as well. Continues to do well with Celexa.. Assessment & Plan (04/04/2018 8:15 PM CDT): Psychological condition is stable. Continue current treatment regimen. Psychological condition will be reassessed 6 months . Assessment & Plan (12/27/2017 1:56 PM CDT): New stressors with raising 3 children suddenly. Continue citalorpam daily. Add clonazepam .5mg bid prn. F/u 3 months and as needed Benign hypertension 11/10/2013 03/14/20 17 Overview (09/30/2016): BENIGN HYPERTENSION Immunizations Immunization Administration Dates Next Due Influenza, Quadrivalent, Hig h Dose, Preservative Free, Intrr 04/19/2022 Influenza, Quadrivalent, Spl it, Intramuscular 03/15/2016 Influenza, Quadrivalent, Spl it, Preservative Free, Intramuscular 04/12/2019 Influenza, Trivalent, Adjuva nted, Intramuscular 05/05/2015 Influenza, Trivalent, High D ose, Split, Preservative Free, Intramuscular 04/18/2024 Influenza, Trivalent, IM (MDV) 05/05/2015,2014,06/05/2008 Influenza, Unspecified 04/17/2024(Deferr ed: Patient Refused),04/09/2024(Deferred: Patient Refused),04/06/2023,04/04/2023(Deferre d: Patient Refused),04/04/2023(Deferred: Patient Refused),04/10/2021,04/10/2020 Pfizer SARS-CoV-2 Monovalent Vaccination (12+ Yrs) PURPLE 09/15/2020,08/25/2020 Pneumococcal Conjugate Pcv20 07/20/2022 Tdap 04/05/2023,10/16/2018 ZOSTER Recombinant 07/20/2022 Surgical History Surgery Date Site/Laterality Comments OTHER SURGICAL HISTORY 2007 breast ca: Lumpectomy BLADDER SUSPENSION 2003 bladder tie up CARPAL TUNNEL RELEASE 2000 R carpal tunnel release OTHER SURGICAL HISTORY 1999 L carpal tunnel release ADENOIDECTOMY 1965 adenoidectomy HYSTERECTOMY 2004 Hysterectomy TUBAL LIGATION Bilateral tubal ligation CARPAL TUNNEL RELEASE 1999 Bilateral Carpal tunnel release TONSILLECTOMY Tonsillectomy HYSTERECTOMY 2006 Hysterectomy HYSTERECTOMY Hysterectomy CARPAL TUNNEL RELEASE Carpal tunnel release OTHER SURGICAL HISTORY Cancer, breast: Lumpectomy followed by chemo and RTx TOTAL ABDOMINAL HYSTERECTOMY W/ BILATERAL SALPINGOOPHORECTOMY Hysterectomy, total abdominal, BSO BREAST SURGERY Medical History Medical History Date Comments Heart murmur heart murmur History of multiple allergies Al narda Anxiety disorder Anxiety Multiple environmental allergies Allergies, environmental; Comments: DNT 01/07/2014 - Arthritis Cancer (HCC) Depression Diabetes mellitus (HCC) Hypertension Thyroid disease Family History Medical History Relation Name Comments COPD Father Don COPD; Diabetes Father Don Diabetes mellit us; Coronary artery disease Mother Meena paredes artery disease; /Coronary artery disease, premature; Heart disease Mother Meena Heart disease; Cancer Other 1 Family history of Cancer; Hypertension Other 2 Family history of Hypertension; Relation Name Status Comments Father Don Alive Mother Meena Other 1 Other 2 Social History Tobacco Use Types Packs/Day Years Used Date Smoking Tobacco: Never Smokeless Tobacco: Never Tobacco Cessation:Counseling Given: Not Answered Alcohol Use Standard Drinks/Week Comments No 0 (1 standard drink = 0.6 oz pur e alcohol) PHQ-2 Answer Date Recorded PHQ-2 Total Score (If total score is 3 or more points, staff should administer the PHQ-9) 0 04/18/2024 Comments No Sex and Gender Information Value Date Recorded Sex Assigned at Not on file Legal Sex Female 8:01 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 Gender Identity Not on file Sexual Orientation Not on file Obstetrics History Para Term AB IAB SAB Ectopic Multiple Livin g Live Births 1 1 Date Outcome GA Total Labor Labor/2nd/3rd Weight Sex Type Anes PTL Ilda A1 A5 Name Clin Para Last Filed Vital Signs Vital Sign Reading Time Taken Comments Blood Pressure 124/62 06/25/2024 12:37 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 Pulse 62 06/25/2024 12:37 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 Temperature 37 C (98.6 F) 04/20/2024 10:59 AM CDT Respiratory Rate 16 04/20/2024 10:59 AM CDT Oxygen Saturation 98% 04/20/2024 10:59 AM CDT Inhaled Oxygen Concentration - - Weight 96.6 kg (213 lb) 04/20/2024 10:59 AM CDT Height 157.5 cm (5' 2 ) 04/20/2024 10:59 AM CDT Body Mass Index 38.96 04/20/2024 10:59 AM CDT Plan of Treatment Health Maintenance Due Date Last Done Comments Breast Cancer Screening-Mammogram 01/24/2021 01/25/2020, 12/22/2018, 12/16/2017, Additional history exists Well Visit 65+ 07/20/2023 07/20/2022 Fall Risk Assessment 01/21/2024 01/20/2023, 07/20/2022, 04/12/2019 Covid-19 Vaccine ( season) 2024 07/19/2022, 06/18/2021, 09/15/2020, Additional history exists Osteoporosis Screening-Bone Density Scan 03/03/2024 03/03/2022 Hemoglobin A1C 12/27/2024 06/29/2024, 05/29, 03/13/2024, Additional history exists Zoster Vaccine (2 of 2) 04/09/2025 07/20/2022 Post poned from 09/14/2022 (Patient declined, but will receive in the future) Depression Screening 04/18/2025 04/18/2024, 01/20/2023, 07/20/2022, Additional history exists Dilated Eye Exam 04/18/2025 04/18/2024 Foot Exam 06/25/2025 06/25/2024 Albumin Creatinine Ratio, Urine 06/29/2025 06/29/2024 Lipid Panel 06/29/2025 06/29/2024, 041 , 08/31/2022, Additional history exists eGFR 06/29/2025 06/29/2024, 041 , 03/02/2022, Additional history exists DTaP/Tdap/Td Vaccine (3 - Td or Tdap) 04/05/2033 04/05/2023, 10/16/2018 Colon Cancer Screening-CT Colonography Discontinued 07/05/2016, 07/05/2016, 07/05/2016, Additional history exists Colon Cancer Screening-Colonoscopy Discontinued 07/05/2016, 07/05/2016, 07/05/2016, Additional history exists Colon Cancer Screening-DNA Stool Discontinued 07/05/2016, 07/05/2016, 07/05/2016, Additional history exists Colon Cancer Screening-FIT Discontinued 07/05, 07/05/2016, 07/05/2016, Additional history exists Colon Cancer Screening-Sigmoidoscopy Discontinued 07/05/2016, 07/05/2016, 07/05/2016, Additional history exists Hepatitis C Screening Completed 04/12/2019 Pneumococcal vaccine 65+ Completed 07/20/2022 Influenza Vaccine Completed 04/18/2024, , 04/19/2022, Additional history exists Hepatitis B Screening Completed 06/29/2024 Procedures Procedure Name Priority Date/Time Associated Diagnosis Comments COMPREHENSIVE METABOLIC PANEL Routine 06/29/2024 9:21 AM 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 Type 2 diabetes mellitus with hyperglycemia, unspecified whether terminologist insulin use (HCC) HEMOGLOBIN A1C Routine 06/29/2024 9:21 AM BAG 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 Type 2 diabetes mellitus with hyperglycemia, unspecified whether group home insulin use (HCC) LIPID PANEL Routine 06/29/2024 9:21 AM 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 Mixed hyperlipidemia ALBUMIN CREATININE RATIO, URINE Routine 06/29/2024 9:21 AM BAG 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 Type 2 diabetes mellitus with hyperglycemia, unspecified whether terminologist insulin use (HCC) RETINAVUE SCANNER - OU - BOTH EYES Routine 04/18/2024 Type 2 diabetes mellitus with hyperglycemia, unspecified whether group home insulin use (HCC) DEXA AXIAL SKELETON BONE DENSITY 1 OR MORE SITES Schedule Routine, Read Routine (OP Routine) 03/03/2022 SCREENING MAMMOGRAM 2D BILATERAL Schedule Routine, Read Routine (OP Routine) 01/25/2020 HEPATITIS C ANTIBODY Routine 04/12/2019 1:33 PM CDT Encounter for hepatitis C screening test for low risk patient HM COLONOSCOPY Routine 07/05/2016 1:12 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 HM COLONOSCOPY Routine 07/05/2016 from Last 3 Months or Most Recently Relevant to Health Maintenance Results * Albumin Creatinine Ratio, Urine (06/29/2024 9:21 AM BAG 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) Creatinine, ur 118 20 - 275 mg/dL [facility] Microalbumin, ur 2.5 See Note: mg/dL [facility] Comment: Reference Range: Reference Range Not established Microalbumin/creat ratio 21 <30 mg/g creat [facility] Comment: The ADA defines abnormalities in albumin excretion as follows: Albuminuria Category Result (mg/g creatinine) Normal to Mildly increased <30 Moderately increased 30-299 Severely increased > OR = 300 The ADA recommends that at least two of three specimens collected within a 3-6 month period be abnormal before considering a patient to be within a diagnostic category. 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 06/29/2024 9:21 AM BAG 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 Narrative [facility] - 06/30/2024 5:11 AM BAG 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 FASTING:YES FASTING: YES Savana Sanchez HAND SIZER LAB URINE ORDERABLES Final Re sult [facility] [id number] [place] [address] * (ABNORMAL) Hemoglobin A1c (06/29/2024 9:21 AM BAG 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) Pathologist [facility] Hgb A1C 7.2(H) <5.7 % of total Hgb [facility] Comment: For someone without known diabetes, a hemoglobin A1c value of 6.5% or greater indicates that they may have diabetes and this should be confirmed with a follow-up test. For someone with known diabetes, a value <7% indicates that their diabetes is well controlled and a value greater than or equal to 7% indicates suboptimal control. A1c targets should be individualized based on duration of diabetes, age, comorbid conditions, and other considerations. Currently, no consensus exists regarding use of hemoglobin A1c for diagnosis of diabetes for children. Blood 06/29/2024 9:21 AM BAG 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 06/29/2024 9:21 AM BAG 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 Narrative [facility] - 06/30/2024 5:11 AM BAG 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 FASTING:YES FASTING: YES us Savana Sanchez NP LAB BLOOD ORDERABLES Final Re sult [facility] [address] [place] [address] * (ABNORMAL) Lipid panel (06/29/2024 9:21 AM BAG 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) Cholesterol 158 <200 mg/dL [facility] HDL 50 > OR = 50 mg/dL [facility] Triglycerides 157(H) <150 mg/dL [facility] LDL 83 mg/dL (calc) [facility] Comment: Reference range: <100 Desirable range <100 mg/dL for primary prevention; <70 mg/dL for patients with CHD or diabetic patients with > or = 2 CHD risk factors. LDL-C is now calculated using the Conchita calculation, which is a validated novel method providing better accuracy than the Friedewald equation in the estimation of LDL-C. Bandar SS et al. LEIGH. 2013;310(19): 7982-9646 (http://education.[employer]/faq/KON092) Chol/HDL ratio 3.2 <5.0 (calc) [facility] Non-HDL, (LDL+VLDL) 108 <130 mg/dL (calc) [facility] Comment: For patients with diabetes plus 1 major ASCVD risk factor, treating to a non-HDL-C goal of <100 mg/dL (LDL-C of <70 mg/dL) is considered a therapeutic option. Blood 06/29/2024 9:21 AM BAG 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 06/29/2024 9:21 AM BAG 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 Narrative [facility] - 06/30/2024 5:11 AM BAG 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 FASTING:YES FASTING: YES Savana Sanchez NP LAB BLOOD ORDERABLES Final Re sult [facility] [address] [place] [address] * (ABNORMAL) Comprehensive metabolic panel (06/29/2024 9:21 AM BAG 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) Glucose 167(H) 65 - 99 mg/dL [facility] Comment: Fasting reference interval For someone without known diabetes, a glucose value >125 mg/dL indicates that they may have diabetes and this should be confirmed with a follow-up test. BUN 13 7 - 25 mg/dL [facility] Creatinine 0.70 0.50 - 1.05 mg/dL [facility] eGFR 95 > OR = 60 mL/min/1.7 3m2 [facility] BUN/creat ratio SEE NOTE: 6 - 22 (calc) [facility] Comment: Not Reported: BUN and Creatinine are within reference range. Sodium 136 135 - 146 mmol/L [facility] Potassium, pl 3.9 3.5 - 5.3 mmol/L [facility] Chloride 101 98 - 110 mmol/L [facility] CO2 29 20 - 32 mmol/L [facility] Calcium 9.2 8.6 - 10.4 mg/dL [facility] Protein, sr 7.4 6.1 - 8.1 g/dL [facility] Albumin 4.1 3.6 - 5.1 g/dL [facility] GLOBULIN 3.3 1.9 - 3.7 g/dL (calc) [facility] Alb/glob ratio 1.2 1.0 - 2.5 (calc) [facility] Bilirubin, total 0.5 0.2 - 1.2 mg/dL [facility] Alk phos 74 37 - 153 U/L [facility] AST 34 10 - 35 U/L [facility] ALT (SGPT) 28 6 - 29 U/L [facility] Blood 06/29/2024 9:21 AM BAG 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 06/29/2024 9:21 AM BAG 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 Narrative [facility] - 06/30/2024 5:11 AM BAG 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 FASTING:YES FASTING: YES us Savana Sanchez HAND SIZER LAB BLOOD ORDERABLES Final Re sult [facility] [id number] [address] [address] * RetinaVue Scanner - OU - Both Eyes (04/18/2024) Anatomical Region Laterality Modality Head Fundus Photograp hy Retina 04/18/2024 Savana Sanchez NP OPHTH PHOTOGRAPHY Final Resul t * Dexa Axial Skeleton Bone Density 1 or 2 Site (03/03/2022) Anatomical Region Laterality Modality Body N/A Radiographic Mey ging Generic External Data Provider IMG DXA PROCEDURE S Final Result * Screening Mammogram 2D Bilateral (01/25/2020) Anatomical Region Laterality Modality Breast Bilateral Mammography Historical Provider IMG MAMMO PROCEDURES Danelle l Result * Hepatitis C antibody (04/12/2019 1:33 PM CDT) Hep C Ab Negative Negative KAYLA GALLAGHER ([place]) Comment:Testing performed by : [facility], [address] [place] [address], [id number] Blood specimen (specimen) 04/12/2019 1:33 PM CDT 04/13/2019 9:46 AM CDT Zahida Leahy NP LAB MICROBIOLOGY - GENERAL OR DERABLES Final Result Performing Organization Address City/State/[facility] Co de Phone Number KAYLA GALLAGHER ([place]) [address] [place] [address] * HM COLONOSCOPY (07/05/2016 1:12 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) Historical Provider HEALTH MAINTENANCE Final Result * HM COLONOSCOPY (07/05/2016) HM Colonoscopy Unknown Historical Provider HEALTH MAINTENANCE Final Result from Last 3 Months or Most Recently Relevant to Health Maintenance [facility] OPEN ACCESS Care Teams Information Technology Consultant Relationship Specialty Start Date End Date Savana Sanchze NP [address] [address] PCP - General Pot Washer 10/05/23
--- OUTSIDE RECORDS SUMMARY | 2024-11-14 09:44 | XMS_ITS | Clinical Summary ---
Author Organization [facility] Address [address] [place] [address] Phone Care Team Providers Care Pillowcase Folder Name Role Phone LeahyZahida APRN, CARDIOLOGY NURSE Primary Care Provider Medications acetaminophen-c odeine (TYLENOL [...] 7:46 PM CDT Respiratory Rate 16 04/06/2023 7:46 PM CDT Oxygen Saturation 99% 04/06/2023 7:4 [...] Risk 60-74 years 1-dose series) 2017 Mammogram 12/16/2018 12/16/2017, 10/25, 10/29/2013, Additional history exists Zoster [...] complete this topic Insurance [employer] Care Teams Pillowcase Folder Relationship Specialty Start Date End Date Zahida Leahy APRN, CARDIOLOGY NURSE [address] [facility] [address] [place] [id number] PCP - General Advanced Practice Nurse 12/21/17
--- OUTSIDE RECORDS SUMMARY | 2024-11-14 09:44 | XMS_ITS | Referral Summary ---
Author Organization [facility] [address] Address [address] [place] [address] Care Team Providers Care Manager Marketing Sales Name Role Phone Savana Sanchez NP Primary Care Provider [phone] Allergies No known active allergies Medications loratadine [...] complication, without long-term current use of insulin ([facility]) Check blood sugar once a day 100 each 11 4 Active blood-glucose meter kitIndications: Type 2 diabetes mellitus without complication, without long-term current use of insulin ([facility]) 1 Device daily 1 kit 4 Active lancets 33 gauge miscIndications :Type 2 diabetes mellitus without complication, without long-term current use of insulin ([facility]) 1 Lancet daily 100 each 11 4 Active levothyroxine (SYNTHROID) 200 mcg tablet Take 1 tablet (200 mcg total) by mouth special investigation unit investigator before breakfast 60 tablet 3 4 Active [...] 0 10/05/2023 Body mass index 40.0-44.9, adult ([facility]) 10/04 Acute non-recurrent maxillary sinusitis 10/05/19 Assessment [...] 07/21/2022 Assessment & Plan (07/21/2022 4:19 PM CASEWORK SUPERVISOR): Patient Counseling: --Nutrition: Stressed importance of moderation [...] pending. Ordered today, reviewed previous labs from [facility] in care everywhere Major depressive disorder, recurrent, mild 06/03 Assessment & Plan (10/05/2023 4:06 PM CDT): Stable. Continue citalopram 40 mg daily Assessment & Plan (01/20/2023 8:59 PM CDT): Stable on citalopram and clonazepam prn. I checked their [employer] BULB GROWER sheet, and it was consistent with prescribed medications. F/u 6 months Assessment & Plan (07/21/2022 4:19 PM CASEWORK SUPERVISOR): Stable. Overall doing well. Using clonazepam about once a day. Will continue current medications and have her follow-up in 6 months Assessment & Plan (12/02/2021 2:34 PM CDT): Stable on citalopram 40mg daily. Uses clonazepam sparingly prn. Mostly in evenings. I checked their [employer] BULB GROWER sheet, and it was consistent with prescribed medications. F/u 6 months Assessment & Plan (06/03/2021 1:45 PM CASEWORK SUPERVISOR): Stable on current medication. Continue citalopram as ordered. Uses clonazepam sparingly. Renal given. May follow up in 6 months. I checked their [place] BULB GROWER sheet, and it was consistent with prescribed medications. Vitamin D deficiency 01/31/2020 Assessment & Plan (10/05/2023 4:06 PM CDT): Vitamin-D level ordered Assessment & Plan (12/02/2020 1:51 PM CDT): Being managed by endocrinology and oncology now. Patient is taking vitamin-D supplements daily Assessment & Plan (08/04/2020 1:20 PM CASEWORK SUPERVISOR): Patient has not been taking her vitamin [...] are stable, reviewed previous lipid levels in [facility]. Pharmacotherapy as ordered. Order for lipid panel was given today to be obtained. Pt voiced understanding of lab drawn and continuation of current medication regimen. Assessment & Plan (07/21/2022 4:17 PM CASEWORK SUPERVISOR): Lipid abnormalities are stable, reviewed previous lipid levels in [facility]. Pharmacotherapy as ordered. Order for lipid panel was given today to be obtained. Pt voiced understanding of lab drawn and continuation of current medication regimen. Assessment & Plan (12/02/2021 2:33 PM CDT): Stable. Medications renewed. Lipid panel ordered. F/u 6 months Assessment & Plan (06/03/2021 1:46 PM CASEWORK SUPERVISOR): Lipid abnormalities are stable, reviewed previous lipid levels in [facility]. Pharmacotherapy as ordered. Assessment & Plan (12/02/2020 1:50 PM CDT): Lipid abnormalities are stable, reviewed previous lipid levels in [facility]. Pharmacotherapy as ordered. Order for lipid panel was given today to be obtained. Pt voiced understanding of lab drawn and continuation of current medication regimen. Assessment & Plan (06/03/2020 3:22 PM CASEWORK SUPERVISOR): Lipid abnormalities are stable. Pharmacotherapy as ordered. [...] oncologist: Primary care physician: Dr. Shweta Zaman PRESS SET UP: ? Flame Hardening Machine Setter: ? Palliative care physician: Nurse Navigator: Advanced [...] agents used: End Date: Clinical trial: Yes [place] of trial: Drugs given and date completed: [...] other tests as indicated on each visit. MEDICAL ASSISTANT PRN: As needed. * Testing as indicated. Please continue to see your primary care provider/FORMING DEPARTMENT SUPERVISOR for all general health care recommended for a female your age. Possible late and/or rodent exterminator effects that someone with this type of [...] cancer coming back. OTHER COMMENTS REFERRALS [facility] Pastoral Services Other (Specify): ADDITIONAL RESOURCES Patients may have many questions and concerns after their cancer treatment ends. A list of local resources as provided below to assist you. [place] cancer information center: [place] [employer] (ACS): www.acs.org National Cancer [place] (NCI): www.cancer.gov [place] Society of clinical oncology (ASCO): www.cancer.net Komen: www.komen.org Livestrong: ididwork.VoltairetronRavenflow Radiation therapy: www.rtanswers.org Patient signature: GASTROENTEROLOGY PHYSICIAN signature: Date delivered on: 60 minutes of [...] oncologist: Primary care physician: Dr. Shweta Zaman PRESS SET UP: ? Flame Hardening Machine Setter: ? Palliative care physician: Nurse Navigator: Advanced [...] End Date: Clinical trial: [] Yes [] [place] of trial: Drugs given and date completed: [...] other tests as indicated on each visit. MEDICAL ASSISTANT PRN: As needed. * Testing as indicated. Please continue to see your primary care provider/FORMING DEPARTMENT SUPERVISOR for all general health care recommended for a female your age. Possible late and/or fdc effects that someone with this type of [...] back. OTHER COMMENTS REFERRALS [] [facility] [] [facility] Integrative Therapy [] [facility] Pastoral Services [] Other (Specify): ADDITIONAL RESOURCES Patients may have many questions and concerns after their cancer treatment ends. A list of local resources as provided below to assist you. [facility] cancer information center: [place] [employer] (ACS): www.acs.org National Cancer [place] (NCI): www.cancer.gov [place] Society of clinical oncology (ASCO): www.cancer.net Komen: www.komen.org Livestrong: www.Voltairetrong.Wallstr Radiation therapy: www.rtanswers.org Patient signature: GASTROENTEROLOGY PHYSICIAN signature: Date delivered on: 60 minutes of time were spent delivering this cancer treatment summary and survivorship plan. Assessment & Plan (06/03/2021 1:39 PM CASEWORK SUPERVISOR): Managed by Oncology at [facility]. 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 Not [...] needed Assessment & Plan (08/28/2021 1:18 PM CASEWORK SUPERVISOR): Diagnosed at the age of 22. She [...] needed Assessment & Plan (06/03/2021 1:38 PM CASEWORK SUPERVISOR): Managed by [facility]. Assessment & Plan [...] . Assessment & Plan (08/04/2020 1:19 PM CASEWORK SUPERVISOR): Diagnosed at the age of 22. She [...] Rivera Assessment & Plan (05/30/2017 8:06 PM CASEWORK SUPERVISOR): TSH is still low. Will refer to [...] hydrochlorothiazide. Assessment & Plan (07/21/2022 4:17 PM CASEWORK SUPERVISOR): Stable/ Improved. Blood pressure is adequately controlled on current medication. We will not make any medication changes today. Will have her follow-up in 6 months for continued monitoring and management Assessment & Plan (12/02/2021 2:33 PM CDT): Improved/ stable. Continue current medications. F/u 6 months Assessment & Plan (06/03/2021 1:46 PM CASEWORK SUPERVISOR): Stable/ Improved. Blood pressure is adequately controlled [...] re-evaluation Assessment & Plan (06/03/2020 3:22 PM CASEWORK SUPERVISOR): Blood pressure is adequately controlled on current [...] 12/27/2017 Assessment & Plan (05/30/2017 8:18 PM CASEWORK SUPERVISOR): Will go ahead and start antibiotics. She has a hx of mrsa. Treat with septra. 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 Will renew clobetasol cream per patient request. Uses p.r.n. Assessment & Plan (05/24/2017 5:00 PM CASEWORK SUPERVISOR): Having a lot of itching with dry [...] needed. Assessment & Plan (06/03/2020 3:23 PM CASEWORK SUPERVISOR): Stable on current medication. Continue clonazepam and [...] Pcv20 07/20/2022 Tdap 04/05/2023,10/16/2018 ZOSTER Recombinant 07/20/2022 Social History Tobacco Use Types Packs/Day Years [...] on file Legal Sex Female 8:01 PM CASEWORK SUPERVISOR Gender Identity Not on file Sexual Orientation Not on file Last Filed Vital Signs Vital Sign Reading Time Taken Comments Blood Pressure 124/62 06/25/2024 12:37 PM CASEWORK SUPERVISOR Pulse 62 06/25/2024 12:37 PM CASEWORK SUPERVISOR Temperature 37 C (98.6 F) 04/20/2024 10:59 AM CDT Respiratory Rate 16 04/20/2024 10:59 AM CDT Oxygen Saturation 98% 04/20/2024 10:59 AM CDT Inhaled Oxygen Concentration - - Weight 96.6 kg (213 lb) 04/20/2024 10:59 AM CDT Height 157.5 cm (5' 2 ) 04/20/2024 10:59 AM CDT Body Mass Index 38.96 04/20/2024 10:59 AM CDT Plan of Treatment Not on file Procedures Procedure Name Priority Date/Time Associated Diagnosis Comments COMPREHENSIVE METABOLIC PANEL Routine 06/29/2024 9:21 AM CASEWORK SUPERVISOR Type 2 diabetes mellitus with hyperglycemia, unspecified whether fdc insulin use (HCC) HEMOGLOBIN A1C Routine 06/29/2024 9:21 AM CASEWORK SUPERVISOR Type 2 diabetes mellitus with hyperglycemia, unspecified whether fdc insulin use (HCC) LIPID PANEL Routine 06/29/2024 9:21 AM CASEWORK SUPERVISOR Mixed hyperlipidemia ALBUMIN CREATININE RATIO, URINE Routine 06/29/2024 9:21 AM CASEWORK SUPERVISOR Type 2 diabetes mellitus with hyperglycemia, unspecified whether fdc insulin use (HCC) RETINAVUE SCANNER - OU - BOTH EYES Routine 04/18/2024 Type 2 diabetes mellitus with hyperglycemia, unspecified whether fdc insulin use (HCC) DEXA AXIAL SKELETON BONE DENSITY 1 OR MORE SITES Schedule Routine, Read Routine (OP Routine) 03/03/2022 SCREENING MAMMOGRAM 2D BILATERAL Schedule Routine, Read Routine (OP Routine) 01/25/2020 HEPATITIS C ANTIBODY Routine 04/12/2019 1:33 PM CDT Encounter for hepatitis C screening test for low risk patient COLONOSCOPY Routine 07/05/2016 1:12 PM CASEWORK SUPERVISOR COLONOSCOPY Routine 07/05/2016 from Last 3 Months or Most Recently Relevant to Health Maintenance Results * Albumin Creatinine Ratio, Urine (06/29/2024 9:21 AM CASEWORK SUPERVISOR) Creatinine, ur 118 20 - 275 mg/dL [...] a diagnostic category. Urine 06/29/2024 9:21 AM CASEWORK SUPERVISOR 06/29/2024 9:21 AM CASEWORK SUPERVISOR Narrative [facility] - 06/30/2024 5:11 AM CASEWORK SUPERVISOR FASTING:YES FASTING: YES Savana Sanchez GASTROENTEROLOGY PHYSICIAN LAB URINE ORDERABLES Final Re sult [facility] [address] [place] [address] * (ABNORMAL) Hemoglobin A1c (06/29/2024 9:21 AM CASEWORK SUPERVISOR) Hgb A1C 7.2(H) <5.7 % of total [...] diabetes for children. Blood 06/29/2024 9:21 AM CASEWORK SUPERVISOR 06/29/2024 9:21 AM CASEWORK SUPERVISOR Narrative [facility] - 06/30/2024 5:11 AM CASEWORK SUPERVISOR FASTING:YES FASTING: YES Savana Sanchez GASTROENTEROLOGY PHYSICIAN LAB BLOOD ORDERABLES Final [facility] [address] [place] [address] * (ABNORMAL) Lipid panel (06/29/2024 9:21 AM CASEWORK SUPERVISOR) Cholesterol 158 <200 mg/dL [facility] [...] factors. LDL-C is now calculated using the Bandar-Madrigal calculation, which is a validated novel method providing better accuracy than the Friedewald equation in the estimation of LDL-C. Bandar SS et al. LEIGH. 2013;310(19): 0985-0740 (http://education.[employer].Wallstr/faq/SPH171) Chol/HDL ratio 3.2 <5.0 (calc) [facility] Non-HDL, (LDL+VLDL) 108 <130 mg/dL (calc) [facility] Comment: For patients with diabetes plus 1 major ASCVD risk factor, treating to a non-HDL-C goal of <100 mg/dL (LDL-C of <70 mg/dL) is considered a therapeutic option. Blood 06/29/2024 9:21 AM CASEWORK SUPERVISOR 06/29/2024 9:21 AM CASEWORK SUPERVISOR Narrative [facility] - 06/30/2024 5:11 AM CASEWORK SUPERVISOR FASTING:YES FASTING: YES us Savana Sanchez GASTROENTEROLOGY PHYSICIAN LAB BLOOD ORDERABLES Final Re sult [facility] [address] [place] [address] * (ABNORMAL) Comprehensive metabolic panel (06/29/2024 9:21 AM CASEWORK SUPERVISOR) Glucose 167(H) 65 - 99 mg/dL [facility] [...] [facility] Blood 06/29/2024 9:21 AM CASEWORK SUPERVISOR 06/29/2024 9:21 AM CASEWORK SUPERVISOR Narrative [facility] - 06/30/2024 5:11 AM CASEWORK SUPERVISOR FASTING:YES FASTING: YES Savana Sanchez NP LAB BLOOD ORDERABLES Final Re sult Performing Organization Address City/[facility]/ZIP Co de Phone Number [facility] [address] [facility] [place] [address] * RetinaVue Scanner - OU - Both [...] Hep C Ab Negative Negative KAYLA GALLAGHER ([place]) Comment:Testing performed by : [facility], [address] [place] [address], [facility] Blood specimen (specimen) 04/12/2019 1:33 PM CDT 04/13/2019 9:46 AM CDT Zahida Leahy NP LAB MICROBIOLOGY - GENERAL OR DERABLES Final Result KAYLA GALLAGHER ([place]) [address] [place] [address] * HM COLONOSCOPY (07/05/2016 1:12 PM CASEWORK SUPERVISOR) Historical Provider HEALTH MAINTENANCE Final Result * COLONOSCOPY (07/05/2016) HM Colonoscopy Unknown Historical Provider HEALTH MAINTENANCE Final Result from Last 3 Months or Most Recently Relevant to Health Maintenance Insurance [facility] CIGNA EnTouch Controls OPEN ACCESS Care Teams Manager Marketing Sales Relationship Specialty Start Date End Date Savana Sanchez NP [address] [address] PCP - General Treasury Assistant 10/05/23
--- OUTSIDE RECORDS SUMMARY | 2024-11-14 09:44 | XMS_ITS | Encounter Summary ---
Author Organization [facility] Address [address] [place] [address] Care Team Providers Care Film Booker Name Role Phone Zahida Leahy [facility] Primary Care Provider [phone] Encounter Details Date Type Department Care Team (Latest Contact Info) Description 05/10/2008 Outpatient Historical [facility] Radiation Oncology [place] [address] [place] [address] Adarsh Hudson MD [address] [place] [phone] Malignant Neoplasm of Upper-Outer Quadrant of Female Breast (CMS/HCC) Social History Tobacco Use Types Packs/Day Years Used Date Smoking Tobacco: Never Assessed Comments Unknown Sex and Gender Information Value Date Recorded Sex Assigned at Not on file Legal Sex Female 5:39 AM PEELED POTATO INSPECTOR Gender Identity Not on file Sexual Orientation Not on file documented as of this encounter Plan of Treatment Upcoming Encounters Date Type Department Care Team (Late st Contact Info) Description 11/21/2024 9:00 AM CDT Office Visit [facility] Oncology and Hematology - [address] [facility] [address] [place] [address] Real Amaro MD [address] [facility] [address] [place] [address] documented as of this encounter Visit Diagnoses Diagnosis Malignant neoplasm of upper-outer quadrant of female breast (CMS/HCC) Malignant neoplasm of upper-outer quadrant of female breast documented in this encounter Care Teams Film Booker Relationship Specialty Start Date End Date Zahida Leahy FNP PCP - General Nurse Practitioner Family 10/15/20 documented as of this encounter
== END 2024-11-14 09:03 | disposition home or self-care (01) ==
PROVIDERS: Visit Provider Internal Medicine Hematology & Oncology
DX: C18.0 Malignant neoplasm of cecum (principal); K76.9 Liver disease, unspecified; K76.0 Fatty (change of) liver, not elsewhere classified; K80.20 Calculus of gallbladder without cholecystitis without obstruction
CPT/HCPCS: 71260; 74177; Q9967

== ENCOUNTER 2025-02-06 08:41 | Outpatient (CLI) | payer MEDICARE, SELFPAY ==
--- NOTE | ~2025-02-06 | CT_ITS ---
EXAMINATION: CT chest abdomen pelvis w con DATE: 02/06/2025 09:20 INDICATION: Cecal cancer TECHNIQUE: Computed tomographic angiography (CTA) of the chest and abdomen was performed without and with 100 mL Omnipaque-350 intravenous contrast. The dose-length product was 1670.41 mGy-cm. Maximum i ntensity projection 3D-reconstructions of the aorta and other arteries were constructed by the techno logist on a separate workstation. COMPARISON: 11/14/2024 FINDINGS: CHEST CTA: No enlarged mediastinal or hilar lymph nodes. There are a few nonenlarged mediastinal lymph nodes, un changed. Heart is mildly enlarged, unchanged mid thoracic aorta is not aneurysmal. Mild as described disease in the thoracic aorta. Visualized tracheobronchial tree is patent. No pulmonary mass. No pneu mothorax. No pleural effusion. Stable scarring in the right middle lobe. ABDOMEN CTA: Fatty liver. Cholelithiasis There are 2 stable subtle liver lesions. No new liver lesions identified. The adrenal glands, kidneys , spleen, pancreas are unremarkable. No enlarged lymph nodes identified in the abdomen or pelvis. Bladder is unremarkable. Grossly stable anastomotic suture line in the large bowel. Osseous structures are grossly unchanged. IMPRESSION: 1. Grossly stable subtle liver lesions. Differential includes metastatic disease versus treated metas tases. No new liver lesions identified. 2. Cholelithiasis. 3. Fatty liver. Reviewed, dictated and finalized at location A. IMPRESSION: 1. Grossly stable subtle liver lesions. Differential includes metastatic diseas e versus treated metastases. No new liver lesions identified. 2. Cholelithiasis. 3. Fatty liver.
--- OUTSIDE RECORDS SUMMARY | 2025-02-06 08:53 | XMS_ITS | Clinical Summary ---
Author Organization [facility] Address [address] [place] [address] Phone Care Team Providers Care Temporary Administrative Assistant Name Role Phone Zahida Leahy APRN, REQUIREMENTS MANAGER Primary Care Provider Allergies No known active allergies Medications acetaminophen-c odeine (TYLENOL WITH CODEINE) 120-12 MG/5ML SolutionIndicat ions:Periorbita l contusion of right eye Take 5 mL by mouth every 6 hours as needed for Moderate or more severe pain. 60 mL 04/06/2023 Active predniSONE (DELTASONE) 50 MG Tablet Take 1 Tablet by mouth daily. 5 Tablet 12/06/2024 Active Active Problems Problem Noted Date Diagnosed Date Adjustment reaction 12/22/2017 Encounters Date Type Department Care Team Description 12/06/2024 7:23 PM CDT - 12/06/2024 8:43 PM CDT Emergency [facility] [address] [place] [id number] Ga Lomas DO Rash Discharge Disposition: Discharged to home or Selfcare 12/06/2024 Travel from Last 3 Months Family History Medical History Relation Name Comments [...] Sign Reading Time Taken Comments Blood Pressure 144/76 12/06/2024 8:39 PM CDT Pulse 76 12/06/2024 8:39 PM CDT Temperature 37.2 C (99 F) 12/06/2024 7:20 PM CDT Respiratory Rate 16 12/06/2024 8:39 PM CDT Oxygen Saturation 94% 12/06/2024 8:39 PM CDT Inhaled Oxygen Concentration - - Weight 101.6 kg (224 lb) 12/06/2024 7:20 PM CDT Height 157.5 cm (5' 2) 12/06/2024 7:20 PM CDT Body Mass Index 40.97 12/06/2024 7:20 PM CDT Plan of Treatment Health Maintenance Due Date Last Done Comments DEXA Bone Density 1955 Hepatitis C Virus (HCV) Screening 1955 Cologuard 2002 Colonoscopy 2002 Colorectal Cancer Screening 2002 Immunochemical Fecal Occult Blood 2002 Respiratory Syncytial Virus (RSV) Immunization (Adult) (1 - Risk 60-74 years 1-dose series) 2017 Zoster Immunization (2 of 2) 09/14/2022 07/20/2022 SARS-COV-2 Immunization ( season) 2024 07/19/2022, 06/18/2021, 09/15/2020, Additional history exists Mammogram 11/21/2024 11/22/2023, 0706/2019, 12/16/2017, Additional history exists Influenza Immunization (#1) 2025 10/2 08/2023, 04/06/2023, 04/19/2022, Additional history exists Pneumococcal Immunization (50+ years) Completed 07/20/2022 Pneumococcal Immunization Combined Discontinued 07/20/2022 DTaP/Tdap/Td Immunization Discontinued 04/05/2023, TdaP Immunization Completed 04/05/2023, 10/16/2018 Hepatitis B Immunization Aged Out No longer eligible based on patient's age to complete this topic Human Papillomavirus (HPV) Immunization Aged Out No longer eligible based on patient's age to complete this topic Meningococcal Immunization (ACWY) Aged Out No longer eligible based on patient's age to complete this topic Rotavirus Immunization Aged Out No lo nger eligible based on patient's age to complete this topic Procedures Procedure Name Priority Date/Time Associated Diagnosis Comments GOLD TOP TUBE STAT 12/06/2024 7:57 PM CDT CBC WITH AUTO DIFFERENTIAL STAT 12/06/2024 7:57 PM CDT EXTRA TUBES STAT 12/06/2024 7:57 PM CDT BASIC METABOLIC PANEL W/ CALCIUM TOTAL STAT 12/06/2024 7:57 PM CDT COMPLETE BLOOD COUNT (CBC) WITH DIFF STAT 12/06/2024 7:57 PM CDT from Last 3 Months Results * GOLD TOP TUBE (12/06/2024 7:57 PM CDT) Blood No Phlebotomy Charged / Unknown 12/06/2024 7:57 PM CDT 12/06/2024 8:12 PM CDT Ga Lomas DO CHEMISTRY ORDERABLES Fi nal Result [facility] [place] [address] * (ABNORMAL) CBC WITH AUTO DIFFERENTIAL (12/06/2024 7:57 PM CDT) WBC 5.87 4.00 - 12.00 10(3)/mcL 12/06/2024 8:15 PM CDT [facility] RBC 3.49(L) 3.80 - 5.30 10(6)/mcL 12/06/2024 8:15 PM CDT [facility] HEMOGLOBIN (HGB) 11.5(L) 12.0 - 15.8 g/dL 12/06/2024 8:15 PM CDT [facility] HEMATOCRIT (HCT) 34.1(L) 36.0 - 47.0 % 12/06/2024 8:15 PM CDT [facility] MCV 97.7(H) 82.0 - 96.0 fL 12/06/2024 8:15 PM CDT [facility] MCH 33.0 26.0 - 34.0 pg 12/06/2024 8:15 PM CDT [facility] MCHC 33.7 31.0 - 36.0 g/dL 12/06/2024 8:15 PM CDT [facility] PLATELET COUNT 118(L) 140 - 440 10(3)/mcL 12/06/2024 8:15 PM CDT [facility] RDW 14.6 11.8 - 15.5 % 12/06/2024 8:15 PM CDT [facility] MPV 9.6(L) 9.7 - 12.4 fL 12/06/2024 8:15 PM CDT [facility] NEUTROPHILS 53.1 47.0 - 73.0 % 12/06/2024 8:15 PM CDT [facility] LYMPHOCYTES 28.8 18.0 - 42.0 % 12/06/2024 8:15 PM CDT [facility] MONOCYTES 11.9 4.0 - 12.0 % 12/06/2024 8:15 PM CDT [facility] EOSINOPHILS 5.3(H) 0.0 - 5.0 % 12/06/2024 8:15 PM CDT [facility] BASOPHILS 0.9 0.0 - 1.0 % 12/06/2024 8:15 PM CDT [facility] ABSOLUTE NEUTROPHILS 3.12 1.60 - 7.70 10(3)/mcL 12/06/2024 8:15 PM CDT [facility] ABSOLUTE LYMPHOCYTES 1.69 1.30 - 3.20 10(3)/mcL 12/06/2024 8:15 PM CDT [facility] ABSOLUTE MONOCYTES 0.70 0.20 - 1.00 10(3)/mcL 12/06/2024 8:15 PM CDT [facility] ABSOLUTE EOSINOPHIL 0.31 0.00 - 0.40 10(3)/mcL 12/06/2024 8:15 PM CDT [facility] ABSOLUTE BASOPHILS 0.05 0.00 - 0.10 10(3)/mcL 12/06/2024 8:15 PM CDT [facility] NRBC PER 100 WBC 0 12/07/19 8:15 PM CDT [facility] Blood Venipuncture / Unknown 12/06/2024 7:57 PM CDT 12/06/2024 8:11 PM CDT us Ga Lomas DO HEMATOLOGY ORDERABLES F inal Result [facility] [place] [address] * (ABNORMAL) BASIC METABOLIC PANEL W/ CALCIUM TOTAL (12/06/2024 7:57 PM CDT) SODIUM 139 136 - 145 mmol/L 12/06/2024 8:32 PM CDT [facility] POTASSIUM 3.5 3.5 - 5.1 mmol/L 12/06/2024 8:32 PM CDT [facility] CHLORIDE 104 98 - 107 mmol/L 12/06/2024 8:32 PM CDT [facility] CO2, VENOUS 26 22 - 30 mmol/L 12/06/2024 8:32 PM CDT [facility] ANION GAP 12.5 <18.0 mmol/L 12/06/2024 8:32 PM CDT [facility] GLUCOSE 137(H) 70 - 99 mg/dL 12/06/2024 8:32 PM CDT [facility] BUN 12 10 - 20 mg/dL 12/06/2024 8:32 PM CD[address] [facility] CREATININE, BLOOD 1.02(H) 0.60 - 1.00 mg/dL 12/06/2024 8:32 PM CDT [facility] BUN/CREATININE RATIO 12 12 - 20 ratio 12/06/2024 8:32 PM CDT [facility] CALCIUM 9.0 8.7 - 10.5 mg/dL 12/06/2024 8:32 PM CDT [facility] GFR, ESTIMATED 60 >=60 12/06/2024 8:32 PM CDT [facility] Comment: Creatinine Clearance is the preferred criteria for selecting drug dose adjustments in renally impaired patients. The GFR is provided as additional pertinent clinical information. GFR is reported in mL/min/1.73 sq m. Calculation based on the Chronic Kidney Disease Epidemiology Collaboration (CKD- EPI) equation refit without adjustment for race. GFR, EST. >60 >=60 025 8:32 PM CDT [facility] GFR, EST. NONAFRICAN 54(L) >=60 12/06/2024 8:32 PM CDT [facility] Blood Venipuncture / Unknown 12/06/2024 7:57 PM CDT 12/06/2024 8:11 PM CDT Ga Lomas DO CHEMISTRY ORDERABLES Fi nal Result [facility] [place] [address] from Last 3 Months Insurance [employer] Care Teams Temporary Administrative Assistant Relationship Specialty Start Date End Date Zahida Leahy, FIELD PIPE LINES SUPERVISOR, REQUIREMENTS MANAGER [address] [facility] [address] [place] [address] [place] [id number] PCP - General Advanced Practice Nurse 12/21/17
--- OUTSIDE RECORDS SUMMARY | 2025-02-06 08:53 | XMS_ITS | Encounter Summary ---
Author Organization [facility] Address [address] [place] [address] Care Team Providers Care Talcer Name Role Phone Zahida Leahy [facility] Primary Care Provider [phone] Encounter Details Date Type Department Care Team (Latest Contact Info) Description 05/10/2008 Outpatient Historical [facility] Radiation Oncology [address] [address] [place] [phone] Adarsh Hudson MD [address] [place] [phone] Malignant Neoplasm of Upper-Outer Quadrant of Female Breast (CMS/HCC) Social History Tobacco Use Types Packs/Day Years Used Date Smoking Tobacco: Never Assessed Comments Unknown Sex and Gender Information Value Date Recorded Sex Assigned at Not on file Legal 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 Gender Identity Not on file Sexual Orientation Not on file documented as of this encounter Plan of Treatment Upcoming Encounters Date Type Department Care Team (Late st Contact Info) Description 02/13/2025 9:00 AM CDT Office Visit [facility] Oncology and Hematology - [address] [facility] [address] [place] [address] Real Amaro MD [address] [facility] [address] [place] [address] documented as of this encounter Visit Diagnoses Diagnosis Malignant neoplasm of upper-outer quadrant of female breast (CMS/HCC) Malignant neoplasm of upper-outer quadrant of female breast documented in this encounter Care Teams Talcer Relationship Specialty Start Date End Date Zahida Leahy FNP PCP - General Nurse Practitioner Family 10/15/20 documented as of this encounter
--- OUTSIDE RECORDS SUMMARY | 2025-02-06 08:53 | XMS_ITS ---
Author Organization [facility] [address] [place] [address] [place] [phone] Care Team Providers Care Patternmaker Name Role Phone Zahida Leahy Travis TREE TRIMMER HELPER Primary Care Provider [phone] Active Problems Patient Care Coordination No te [...] oncologist: Primary care physician: Dr. Shweta Zaman DIRECTOR OF MATERNITY SERVICES: ? Keys[place]: ? Palliative care physician: Nurse Navigator: Advanced Practice Nurse: Terry Nobs DIGITAL MARKETING APPRENTICE Other care team providers: TREATMENT SUMMARY Cancer [...] End Date: Clinical trial: [] Yes [] [place] of trial: Drugs given and date completed: [...] other tests as indicated on each visit. WELT SEWER: As needed. * Testing as indicated. Please continue to see your primary care provider/LICENSED OCCUPATIONAL THERAPY ASSISTANT for all general health care recommended for a female your age. Possible late and/or supervisor intermediates effects that someone with this type of [...] [] Star [] [facility] [] [facility], [facility] [] Other (Specify): ADDITIONAL RESOURCES Patients may have many questions and concerns after their cancer treatment ends. A list of local resources as provided below to assist you. [facility] cancer information center: [employer] (ACS): www.acs.org National Cancer [place] (NCI): www.cancer.gov [place] Society of clinical oncology (ASCO): www.cancer.net [employer]: www.komen.org [employer]: www.GotoTeltronMassive Damage.[place] Radiation therapy: www.rtanswers.org Patient signature: DIGITAL MARKETING APPRENTICE signature: Date delivered on: 60 minutes of [...] 5 Assessment & Plan (05/14/2013 2:19 PM TRAINING PROFESSIONAL): 5 1/2 years out OFF TMX mammo September Assessment & Plan (04/21/2012 9:56 AM CDT): 4 1/2 yrs On TMX 4 years Scar tissue near brachy site; rash lower breast (rign worm?) ?Psoriasis? ROV 1 year lymphedma mammo august Assessment & Plan (05/07/2011 3:03 PM TRAINING PROFESSIONAL): 3 1/2 years out On TMX Discussed [...] yet Assessment & Plan (05/07/2010 2:11 PM TRAINING PROFESSIONAL): 2 1/2 yrs out Mammogram in August [...]
--- OUTSIDE RECORDS SUMMARY | 2025-02-06 08:53 | XMS_ITS | Clinical Summary ---
Author Organization [facility] [address] [place] [address] [place] [id number] Care Team Providers Care Tiler Name Role Phone Leahy, Zahida Robles WARP PICKER Primary Care Provider [phone] Allergies No known active allergies Medications loratadine [...] / MRI, if needed). 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 Apply to port site 30 minutes prior to access 30 Gram 3 Active hydroCHLOROthiazide 25 mg tablet Active benazepriL (LOTENSIN) 40 mg tablet Take 40 mg by mouth daily. Active clobetasoL (TEMOVATE) 0.05 % Cream APPLY CREAM TOPICALLY TO AFFECTED AREA TWICE DAILY NEEDED FOR RADIATION INDUCED RASH Active pantoprazole (Protonix) 40 mg Tablet, Delayed Release (E.C.) Take 1 Tablet (40 mg) by mouth daily. Continue for 3 months. 30 Tablet 2 022 Active ondansetron (Zofran) 8 mg Tablet Take 1 Tablet (8 mg) by mouth every 8 hours as needed for Nausea/Emesis. 90 Tablet 3 023 Active potassium chloride (KLOR-CON) 20 mEq Extended Release tablet Take 1 Tablet (20 mEq) by mouth daily. 30 Tablet 4 023 Active metFORMIN (GLUCOPHAGE XR) 500 mg Extended Release 24 hour tablet Take 500 mg by mouth daily with breakfast. Active diphenoxylate-atrop ine 2.5 mg-0.025 mg tabletIndications:C ecal cancer (CMS/HCC),Diarrhea due to drug,Diarrhea Take 1 Tablet by mouth 4 times daily as needed for Diarrhea/Loose Stools. 90 Tablet 025 Active ondansetron (ZOFRAN ODT) 4 mg Tablet, Rapid Dissolve Take 1 tablet (4 mg) by mouth 60 minutes prior to each radiation treatment. Dissolve tablet on top of tongue, then swallow with saliva. May take 1 tablet (4 mg) by mouth up to every 12 hours if needed for nausea/vomiting. 10 Tablet 025 Active gabapentin (NEURONTIN) 600 mg tablet Take 1 Tablet (600 mg) by mouth 3 times daily. 90 Tablet 025 Active methylPREDNISolone (MEDROL DOSPACK) 4 mg Tablets, Dose Pack Use as directed 21 Tablet 025 Active sulfamethoxazole-tr imethoprim (BACTRIM DS) 800-160 mg tablet Take 1 Tablet by mouth 2 times daily for 3 days. 6 Tablet 025 2024 sulfamethoxazole-tr imethoprim (BACTRIM DS) 800-160 mg tablet Take 1 Tablet by mouth 2 times daily for 7 days. 14 Tablet 025 2024 Active Problems Patient Care Coordination No te [...] oncologist: Primary care physician: Dr. Shweta Zaman COMMUNITY OUTREACH DIRECTOR: ? Leather Stripping Machine Operator: ? Palliative care physician: Nurse Navigator: Advanced [...] End Date: Clinical trial: [] Yes [] [place] of trial: Drugs given and date completed: [...] other tests as indicated on each visit. STRING CUTTER: As needed. * Testing as indicated. Please continue to see your primary care provider/MARINE REPORTER for all general health care recommended for a female your age. Possible late and/or custodial effects that someone with this type of [...] back. OTHER COMMENTS REFERRALS [] Star [] [facility] Therapy [] [facility] Past[facility] Services [] Other (Specify): ADDITIONAL RESOURCES Patients may have many questions and concerns after their cancer treatment ends. A list of local resources as provided below to assist you. 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 ROV 1 year lymphedma mammo august Assessment & Plan (05/07/2011 3:03 PM RESEARCH LABORATORY TECHNICIAN): 3 1/2 years out On TMX Discussed [...] yet Assessment & Plan (05/07/2010 2:11 PM RESEARCH LABORATORY TECHNICIAN): 2 1/2 yrs out Mammogram in August [...] Is doing well with TMX for her ER+TN- tumor. Had b/l mammogram in Jul KASH PLAN: cont TMX Needs right sided mammogram in January and b/l in Jul with DMR visit. ROV 3 months. (no RT followup) Encounters Date Type Department Care Team Description 01/30/2025 External Device Data ST[facility] ABSTRACTION Provider, Abstract 01/28/2025 Orders Only [facility] - [place] [address] [place] [address] Real Amaro MD Cecal cancer ([facility]/HCC) 01/23/2025 Orders Only [facility] - [place] [address] [place] [address] Real Amaro MD 01/14/2025 Orders Only [facility] - Tim [address] [place] [address] Real Amaro MD Cecal cancer ([facility]) 01/10/2025 External Device Data STL ABSTRACTION Provider, Abstract 01/04/2025 Telephone [facility] - [place] [address] [place] [address] Real Amaro MD UTI 01/02/2025 9:15 AM CDT Office Visit [facility] [address] [place] [address] Real Amaro MD Cecal cancer ([facility]/HCC) (Primary Dx); Dysuria 12/31/2024 Orders Only [facility] - Tim [address] [place] [address] Real Amaro MD Cecal cancer ([facility]/HCC) 12/17/2024 Orders Only [facility] [place] [address] [place] [id number] Real Amaro MD Cecal cancer ([facility]/HCC) 12/12/2024 External Device Data STL ABSTRACTION Provider, Abstract 12/06/2024 Telephone [facility] Hematology [facility] [address] [place] [address] Real Amaro MD Rash 12/03/2024 Orders Only [facility] [place] [address] [place] [address] Real Amaro MD Cecal cancer ([facility]/HCC) 11/21/2024 9:00 AM CDT Office Visit [facility] [address] [place] [address] Real Amaro MD Cecal cancer ([facility]/HCC) (Primary Dx) 11/20/2024 External Device Data STL ABSTRACTION Provider, Abstract 11/19/2024 Orders Only [facility] [address] [place] [address] Real Amaro MD Cecal cancer ([facility]/HCC) 11/15/2024 External Device Data STL ABSTRACTION Provider, Abstract 11/14/2024 External Device Data STL ABSTRACTION Provider, Abstract 11/14/2024 Orders Only [facility] - [address] [place] [address] Real Amaro MD from Last 3 Months Immunizations Immunization Administration [...] on file Legal Sex Female 5:39 AM RESEARCH LABORATORY TECHNICIAN Gender Identity Not on file Sexual Orientation Not on file Occupation Industry Job Start Date Job End Date Not on file Not on file Not on file Not on file Last Filed Vital Signs Vital Sign Reading Time Taken Comments Blood Pressure 160/83 01/02/2025 9:21 AM CDT Pulse 67 01/02/2025 9:19 AM CDT Temperature 36.3 C (97.3 F) 01/02/2025 9:19 AM CDT Respiratory Rate 15 01/02/2025 9:19 AM CDT Oxygen Saturation 94% 01/02/2025 9:19 AM CDT Inhaled Oxygen Concentration - - Weight 102.1 kg (225 lb) 01/02/2025 9:19 AM CDT Height 157.5 cm (5' 2) 03/22/2022 7:06 AM CDT Body Mass Index 41.15 03/22/2022 7:06 AM CDT Plan of Treatment Upcoming Encounters Date Type Department Care Team (Late st Contact Info) Description 02/13/2025 9:00 AM CDT Office Visit [facility] [place] [address] [place] [address] Real Amaro MD [address] [facility] [address] [place] [address] Health Maintenance Due Date Last [...] MONTHS 12/27/20242024, 06/25/2024, 03/13/2024, Additional history exists INFLUENZA VACCINE (#1) 2025 , 04/19/2022, 04/12/2019, Additional history exists DIABETES ANNUAL RETINAL EXAM 04/18/2025 04/18/2024 DIABETES ANNUAL FOOT EXAM 06/25/2025 06/25/2024 OSTEOPOROSIS SCREENING 03/03/2027 03/03/2022 DTAP/TDAP/TD VACCINES (3 - T d or Tdap) 04/05/2033 04/05/2023, 10/16/2018 PNEUMOCOCCAL VACCINE 50+ YEARS Completed 07/20/2022 Medical Devices Explanted Type Area Hide Or Skin Buffer Device Identifier Shelf Expiration Date Model / Serial / Lot Port Pwrprt Isp Clrvu 8fr [id number] - [id number] Implanted:Qty: 1 on 02/03/2015 by Myriam Sotomayor MD at [facility] Explanted:Qty: 1 on 10/13/2015 at [facility] Port Left: Chest CR [employer] 05/24/2016 [id number] / / [id number] Description:placement left I J Procedures Procedure Name Priority Date/Time Associated Diagnosis Comments BASIC METABOLIC PANEL Routine 01/23/2025 2:35 PM CDT COMPREHENSIVE METABOLIC PANEL Routine 01/23/2025 2:[address] CHEST ABDOMEN PELVIS W CONT Routine 11/14/2024 1:46 PM CDT MAMMO BILAT DIAGNOSTIC Routine 9:21 AM CDT COLONOSCOPY REPORT 07/23/2019 7: 46 AM RESEARCH LABORATORY TECHNICIAN HEMOGLOBIN A1C Routine 08/06/2015 7:39 AM RESEARCH LABORATORY TECHNICIAN Toxic neuropathy Impaired glucose metabolism from Last 3 Months or Most Recently Relevant to Health Maintenance Results * BASIC METABOLIC PANEL (01/23/2025 2:35 PM CDT) Blood us Real Amaro MD CHEMISTRY ORDERABLES Final Resu lt * COMPREHENSIVE METABOLIC PANEL (01/23/2025 2:16 PM CDT) Blood us Real Amaro MD CHEMISTRY ORDERABLES Final Resu lt * CT CHEST ABDOMEN PELVIS W CONT (11/14/2024 1:46 PM CDT) Anatomical Region Laterality Modality Chest Computed Tomogra phy us Real Amaro MD CT ORDERABLES Final Result * MAMMO BILAT DIAGNOSTIC (11/22/2023 9:21 AM CDT) Anatomical Region Laterality Modality Breast Bilateral Mammography us Real Amaro MD MAMMO ORDERABLES Final Result * COLONOSCOPY REPORT (07/23/2019 7:46 AM RESEARCH LABORATORY TECHNICIAN) Narrative Procedure Note Sita Carvajal MD - 07/23/2019 7:[address] [facility] Endoscopy Patient Name: Laly Kincaid Procedure Date: [...] normal. There was evidence of a prior [id number] ileo-colonic anastomosis in the proximal transverse colon. [...] of the ileum was normal. - Patent [id number] ileo-colonic anastomosis, characterized by healthy appearing mucosa. [...] electronically. Number of Addenda: [address]; [place] [address] Sita Carvajal MD GI PROCEDURE ORDERABLES Final Result * HEMOGLOBIN A1C (08/06/2015 7:39 AM RESEARCH LABORATORY TECHNICIAN) HEMOGLOBIN A1C 6.0 4.0 - 6.0 % 08/06/2015 2:55 PM RESEARCH LABORATORY TECHNICIAN [facility] Comment:Note: Effective as o f 07/18/2014 a new methodology, Turbidimetric inhibition immunoassay (TINIA),has been implemented. EST. AVG GLUCOSE, A1C 126 mg/dL 08/06/2015 2:55 PM RESEARCH LABORATORY TECHNICIAN [facility] Blood Venipuncture - L ab Collect / Unknown 08/06/2015 7:39 AM RESEARCH LABORATORY TECHNICIAN 08/06/2015 7:39 AM RESEARCH LABORATORY TECHNICIAN Vivien Atkins MD CHEMISTRY ORDERABLES Final Result [facility] CLIA# [id number] [address] [place], [place] [id number] from Last 3 Months or Most Recently Relevant to Health Maintenance Insurance [facility] Address: [address] [phone] [facility] Address: [address] [phone] Advance Directives For more information, please contact: [phone] * Full Code (Latest Code Status on [...] 7:36 AM 12/24/2014 2:12 PM Care Teams Tiler Relationship Specialty Start Date End Date Zahida Leahy FNP PCP - General Nurse Practitioner Family 10/15/20
--- OUTSIDE RECORDS SUMMARY | 2025-02-06 08:53 | XMS_ITS | Clinical Summary ---
Author Organization [facility] Medical Office Building B Address [address] [place] [address] Care Team Providers Care Disk Sander Name Role Phone Savana Sanchez NP Primary Care Provider [phone] Allergies No known active allergies Medications loratadine (CLARITIN) 10 mg tablet take 1 tablet by oral route every day 0 0 4 Active diphenoxylate-a tropine (LOMOTIL) 2.5-0.025 mg per tablet Take 1 tablet by mouth every 6 hours as needed 6 Active gabapentin (NEURONTIN) 600 mg tablet 1 Active potassium chloride ER (KLOR-CON) 20 mEq CR tablet Take 1 tablet (20 mEq total) by mouth daily 2 Active ondansetron (ZOFRAN) 8 mg tablet 3 Active atorvastatin (LIPITOR) 10 mg tablet Take 1 tablet (10 mg total) by mouth daily 90 tablet 3 3 Active fluticasone propionate (FLONASE) 50 mcg/actuation nasal sprayIndication s:Acute effusion of right ear Administer 2 sprays into each nostril daily 16 g 3 Active levothyroxine (SYNTHROID) 200 mcg tablet Take 1 tablet (200 mcg total) by mouth senior software developer before breakfast 60 tablet 3 4 Active [...] 90 tablet 3 4 04/18/20 25 Active mecobalamin (B12 ACTIVE ORAL) Take by mouth Active ferrous sulfate (IRON ORAL) Take by mouth Acti ve Active Problems Problem Noted Date Diagnosed Date [...] 0 10/05/2023 Body mass index 40.0-44.9, adult (CMS/HCC) 10/04 Acute non-recurrent maxillary sinusitis 10/05/19 Assessment [...] 07/21/2022 Assessment & Plan (07/21/2022 4:19 PM DRILL RUNNER): Patient Counseling: --Nutrition: Stressed importance of moderation [...] citalopram and clonazepam prn. I checked their [place] HIGH ENERGY FORMING EQUIPMENT OPERATOR sheet, and it was consistent with prescribed medications. F/u 6 months Assessment & Plan (07/21/2022 4:19 PM DRILL RUNNER): Stable. Overall doing well. Using clonazepam about once a day. Will continue current medications and have her follow-up in 6 months Assessment & Plan (12/02/2021 2:34 PM CDT): Stable on citalopram 40mg daily. Uses clonazepam sparingly prn. Mostly in evenings. I checked their [place] HIGH ENERGY FORMING EQUIPMENT OPERATOR sheet, and it was consistent with prescribed medications. F/u 6 months Assessment & Plan (06/03/2021 1:45 PM DRILL RUNNER): Stable on current medication. Continue citalopram as ordered. Uses clonazepam sparingly. Renal given. May follow up in 6 months. I checked their [place] HIGH ENERGY FORMING EQUIPMENT OPERATOR sheet, and it was consistent with prescribed medications. Vitamin D deficiency 01/31/2020 Assessment & Plan (10/05/2023 4:06 PM CDT): Vitamin-D level ordered Assessment & Plan (12/02/2020 1:51 PM CDT): Being managed by endocrinology and oncology now. Patient is taking vitamin-D supplements daily Assessment & Plan (08/04/2020 1:20 PM DRILL RUNNER): Patient has not been taking her vitamin [...] are stable, reviewed previous lipid levels in [facility]. Pharmacotherapy as ordered. Order for lipid panel was given today to be obtained. Pt voiced understanding of lab drawn and continuation of current medication regimen. Assessment & Plan (07/21/2022 4:17 PM DRILL RUNNER): Lipid abnormalities are stable, reviewed previous lipid levels in [facility]. Pharmacotherapy as ordered. Order for lipid panel was given today to be obtained. Pt voiced understanding of lab drawn and continuation of current medication regimen. Assessment & Plan (12/02/2021 2:33 PM CDT): Stable. Medications renewed. Lipid panel ordered. F/u 6 months Assessment & Plan (06/03/2021 1:46 PM DRILL RUNNER): Lipid abnormalities are stable, reviewed previous lipid levels in epic. Pharmacotherapy as ordered. Assessment & Plan (12/02/2020 1:50 PM CDT): Lipid abnormalities are stable, reviewed previous lipid levels in epic. Pharmacotherapy as ordered. Order for lipid panel was given today to be obtained. Pt voiced understanding of lab drawn and continuation of current medication regimen. Assessment & Plan (06/03/2020 3:22 PM DRILL RUNNER): Lipid abnormalities are stable. Pharmacotherapy as ordered. [...] SUMMARY AND SURVIVORSHIP PLAN Patient name: Lina Lee Patient Patient : 1955 CARE TEAM Medical oncologist: Dr. Edin Hutchinson Surgeon: Dr. Myriam Sotomayor Radiation oncologist: Primary care physician: Dr. Shweta Zaman AGRICULTURAL EQUIPMENT MECHANIC: ? Adhesion Tester: ? Palliative care physician: Nurse Navigator: Advanced [...] agents used: End Date: Clinical trial: Yes [place] of trial: Drugs given and date completed: [...] other tests as indicated on each visit. GENETICIST: As needed. * Testing as indicated. Please continue to see your primary care provider/CASHIER GREETER for all general health care recommended for a female your age. Possible late and/or senior living effects that someone with this type of [...] your cancer coming back. OTHER COMMENTS REFERRALS [facility] Services Other (Specify): ADDITIONAL RESOURCES Patients may have many questions and concerns after their cancer treatment ends. A list of local resources as provided below to assist you. [facility] cancer information center: [place] Cancer Society (ACS): www.acs.org National Cancer Tracy (NCI): www.cancer.gov [place] Society of clinical oncology (ASCO): www.cancer.net Komen: www.komen.org Livestrong: www.Ginxtrong.OneAway Radiation therapy: www.rtanswers.org Patient signature: SILVERER signature: Date delivered on: 60 minutes of time were spent delivering this cancer treatment summary and survivorship plan. Images from the original note were not included. Pt declined survivorship plan. Terry Colin NP COLORECTAL CANCER TREATMENT SUMMARY AND SURVIVORSHIP PLAN Patient name: Lina Lee Patient Patient : 1955 CARE TEAM Medical oncologist: Dr. Edin Hutchinson Surgeon: Dr. Myriam Sotomayor Radiation oncologist: Primary care physician: Dr. Shweta Zaman AGRICULTURAL EQUIPMENT MECHANIC: ? Adhesion Tester: ? Palliative care physician: Nurse Navigator: Advanced [...] End Date: Clinical trial: [] Yes [] [place] of trial: Drugs given and date completed: [...] other tests as indicated on each visit. GENETICIST: As needed. * Testing as indicated. Please continue to see your primary care provider/CASHIER GREETER for all general health care recommended for a female your age. Possible late and/or senior living effects that someone with this type of [...] [] Star [] [facility] [] [facility] [] Other (Specify): ADDITIONAL RESOURCES Patients may have many questions and concerns after their cancer treatment ends. A list of local resources as provided below to assist you. [facility] cancer information center: [place] Cancer Society (ACS): www.acs.org National Cancer Tracy (NCI): www.cancer.gov [place] Society of clinical oncology (ASCO): www.cancer.net Komen: www.komen.org Livestrong: www.Ginxtrong.OneAway Radiation therapy: www.rtanswers.org Patient signature: SILVERER signature: Date delivered on: 60 minutes of time were spent delivering this cancer treatment summary and survivorship plan. Assessment & Plan (06/03/2021 1:39 PM DRILL RUNNER): Managed by Oncology at [facility]. 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 Not [...] needed Assessment & Plan (08/28/2021 1:18 PM DRILL RUNNER): Diagnosed at the age of 22. She [...] needed Assessment & Plan (06/03/2021 1:38 PM DRILL RUNNER): Managed by endocrinology. Pace. Assessment & Plan (02/09/2021 1:46 PM [...] . Assessment & Plan (08/04/2020 1:19 PM DRILL RUNNER): Diagnosed at the age of 22. She [...] Rivera Assessment & Plan (05/30/2017 8:06 PM DRILL RUNNER): TSH is still low. Will refer to [...] hydrochlorothiazide. Assessment & Plan (07/21/2022 4:17 PM DRILL RUNNER): Stable/ Improved. Blood pressure is adequately controlled on current medication. We will not make any medication changes today. Will have her follow-up in 6 months for continued monitoring and management Assessment & Plan (12/02/2021 2:33 PM CDT): Improved/ stable. Continue current medications. F/u 6 months Assessment & Plan (06/03/2021 1:46 PM DRILL RUNNER): Stable/ Improved. Blood pressure is adequately controlled [...] re-evaluation Assessment & Plan (06/03/2020 3:22 PM DRILL RUNNER): Blood pressure is adequately controlled on current [...] CDT): BMI Follow-up includes: exercise counseling S/P APURVA-BSFernando 01/16/2009 Resolved Problems Problem Noted Date Diagnosed [...] 12/27/2017 Assessment & Plan (05/30/2017 8:18 PM DRILL RUNNER): Will go ahead and start antibiotics. She has a hx of mrsa. Treat with septra. 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 Will renew clobetasol cream per patient request. Uses p.r.n. Assessment & Plan (05/24/2017 5:00 PM DRILL RUNNER): Having a lot of itching with dry [...] needed. Assessment & Plan (06/03/2020 3:23 PM DRILL RUNNER): Stable on current medication. Continue clonazepam and [...] 11/10/2013 03/14/20 17 Overview (09/30/2016): BENIGN HYPERTENSION Encounters Date Type Department Care Team Description 12/26/2024 Orders Only [facility] Primary Care at [address] [address] Savana Sanchez NP Vasculitis (Primary Dx) 12/05/2024 5:15 PM CDT Office Visit [facility] Care [address] [place] [phone] Mercy Hernandez, SILVERER Palpable purpura (Primary Dx) from Last 3 Months Immunizations Immunization Administration Dates Next Due Influenza, [...] 2003 bladder tie up CARPAL TUNNEL RELEASE 1999 R carpal tunnel release OTHER SURGICAL HISTORY 1998 L carpal tunnel release ADENOIDECTOMY 1965 adenoidectomy HYSTERECTOMY 2004 Hysterectomy TUBAL LIGATION Bilateral tubal ligation CARPAL TUNNEL RELEASE 1998 Bilateral Carpal tunnel release TONSILLECTOMY Tonsillectomy HYSTERECTOMY 2006 Hysterectomy HYSTERECTOMY Hysterectomy CARPAL TUNNEL RELEASE Carpal tunnel release OTHER SURGICAL HISTORY Cancer, breast: Lumpectomy followed by chemo and RTx TOTAL ABDOMINAL HYSTERECTOMY W/ BILATERAL SALPINGOOPHORECTOMY Hysterectomy, total abdominal, BSO BREAST SURGERY Medical History Medical History Date Comments Heart murmur heart murmur History of multiple allergies Al lergies Anxiety disorder Anxiety Multiple environmental allergies Allergies, environmental; Comments: DNT 01/07/2014 - Arthritis Cancer (HCC) Depression Diabetes mellitus (HCC) Hypertension Thyroid disease Family History Medical History Relation Name Comments COPD Father Don COPD; Diabetes Father Don Diabetes mellit us; Coronary artery disease Mother Meena Rubin nareva artery disease; /Coronary artery disease, premature; Heart [...] on file Legal Sex Female 8:01 PM DRILL RUNNER Gender Identity Not on file Sexual Orientation Not on file Obstetrics History Para Term AB IAB SAB Ectopic Multiple Livin g Live Births 1 1 Date Outcome GA Total Labor Labor/2nd/3rd Weight Sex Type Anes PTL Ilda A1 A5 Name Clin Para Last Filed Vital Signs Vital Sign Reading Time Taken Comments Blood Pressure 118/62 12/05/2024 5:03 PM CDT Pulse 75 12/05/2024 5:03 PM CDT Temperature 36.7 C (98 F) 12/05/2024 5:03 PM CDT Respiratory Rate 17 12/05/2024 5:03 PM CDT Oxygen Saturation 96% 12/05/2024 5:03 PM CDT Inhaled Oxygen Concentration - - Weight 102.2 kg (225 lb 6.4 oz) 12/05/2024 5:03 PM CDT Height 157.5 cm (5' 2) 12/05/2024 5:03 PM CDT Body Mass Index 41.23 12/05/2024 5:03 PM CDT Plan of Treatment Health Maintenance Due Date Last Done Comments Breast Cancer Screening-Mammogram 01/24/2021 01/25/2020, 01/25/2020, 12/22/2018, Additional history exists Well Visit 65+ 07/20/2023 07/20/2022 Fall Risk Assessment 01/21/2024 01/20/2023, 07/20/2022, 04/12/2019 Covid-19 Vaccine ( season) 2024 07/19/2022, 06/18/2021, 09/15/2020, Additional history exists Osteoporosis Screening-Bone Density Scan 03/03/2024 03/03/2022 Hemoglobin A1C 12/27/2024 06/29/2024, 12/, 03/13/2024, Additional history exists Influenza Vaccine (#1) 2025 , 04/06/2023, 04/19/2022, Additional history exists Zoster Vaccine (2 of 2) 04/09/2025 07/20/2022 Post poned from 09/14/2022 (Patient declined, but will receive in the future) Depression Screening 04/18/2025 04/18/2024, 01/20/2023, 07/20/2022, Additional history exists Dilated Eye Exam 04/18/2025 04/18/2024 Foot Exam 06/25/2025 06/25/2024 Albumin Creatinine Ratio, Urine 06/29/2025 06/29/2024 Lipid Panel 06/29/2025 06/29/2024, 04/1 , 08/31/2022, Additional history exists eGFR 06/29/2025 06/29/2024, 04/1 , 03/02/2022, Additional history exists DTaP/Tdap/Td Vaccine [...] Completed 04/12/2019 Pneumococcal vaccine 65+ Completed 07/20/2022 Hepatitis B Screening Completed 06/29/2024 Procedures Procedure Name Priority Date/Time Associated Diagnosis Comments COMPREHENSIVE METABOLIC PANEL Routine 06/29/2024 9:21 AM DRILL RUNNER Type 2 diabetes mellitus with hyperglycemia, unspecified whether long term care phlebotomist insulin use (HCC) HEMOGLOBIN A1C Routine 06/29/2024 9:21 AM DRILL RUNNER Type 2 diabetes mellitus with hyperglycemia, unspecified whether long term care phlebotomist insulin use (HCC) LIPID PANEL Routine 06/29/2024 9:21 AM DRILL RUNNER Mixed hyperlipidemia ALBUMIN CREATININE RATIO, URINE Routine 06/29/2024 9:21 AM DRILL RUNNER Type 2 diabetes mellitus with hyperglycemia, unspecified whether senior living insulin use (HCC) RETINAVUE SCANNER - OU - BOTH EYES Routine 04/18/2024 Type 2 diabetes mellitus with hyperglycemia, unspecified whether senior living insulin use (HCC) DEXA AXIAL SKELETON BONE DENSITY 1 OR MORE SITES Schedule Routine, Read Routine (OP Routine) 03/03/2022 SCREENING MAMMOGRAM 2D BILATERAL Schedule Routine, Read Routine (OP Routine) 01/25/2020 HEPATITIS C ANTIBODY Routine 04/12/2019 1:33 PM CDT Encounter for hepatitis C screening test for low risk patient HM COLONOSCOPY Routine 07/05/2016 1:12 PM DRILL RUNNER HM COLONOSCOPY Routine 07/05/2016 from Last 3 Months or Most Recently Relevant to Health Maintenance Results * Albumin Creatinine Ratio, Urine (06/29/2024 9:21 AM DRILL RUNNER) Creatinine, ur 118 20 - 275 mg/dL [...] a diagnostic category. Urine 06/29/2024 9:21 AM DRILL RUNNER 06/29/2024 9:21 AM DRILL RUNNER Narrative [facility] - 06/30/2024 5:11 AM DRILL RUNNER FASTING:YES FASTING: YES Savana Sanchez NP LAB URINE ORDERABLES Final Re sult Performing Organization Address City/[facility]/ZIP Co de Phone Number [facility] [address] [address] [facility] [place] [address] * (ABNORMAL) Hemoglobin A1c (06/29/2024 9:21 AM DRILL RUNNER) Hgb A1C 7.2(H) <5.7 % of total Hgb [facility] Comment: For someone without known diabetes, [...] diabetes for children. Blood 06/29/2024 9:21 AM DRILL RUNNER 06/29/2024 9:21 AM DRILL RUNNER Narrative [facility] - 06/30/2024 5:11 AM DRILL RUNNER FASTING:YES FASTING: YES Savana Sanchez NP LAB BLOOD ORDERABLES Final Re sult Performing Organization Address City/[facility]/ZIP Co de Phone Number [facility] [address] [place] [address] * (ABNORMAL) Lipid panel (06/29/2024 9:21 AM DRILL RUNNER) Cholesterol 158 <200 mg/dL [facility] [...] equation in the estimation of LDL-C. Bandar FUENTES et al. LEIGH. 2013;310(19): 5605-4904 (http://education.Yo-[employer] Wellness/faq/KOW891) Chol/HDL ratio 3.2 <5.0 (calc) [facility] Non-HDL, (LDL+VLDL) 108 <130 mg/dL (calc) [facility] Comment: For patients with diabetes plus 1 major ASCVD risk factor, treating to a non-HDL-C goal of <100 mg/dL (LDL-C of <70 mg/dL) is considered a therapeutic option. Blood 06/29/2024 9:21 AM DRILL RUNNER 06/29/2024 9:21 AM DRILL RUNNER Narrative [facility] - 06/30/2024 5:11 AM DRILL RUNNER FASTING:YES FASTING: YES us Savana Sanchez SILVERER LAB BLOOD ORDERABLES Final Re sult [facility]RISTI [facility] [address] [place] [address] * (ABNORMAL) Comprehensive metabolic panel (06/29/2024 9:21 AM DRILL RUNNER) [facility] Glucose 167(H) 65 - 99 mg/dL [facility] [...] [place] BUN/creat ratio SEE NOTE: 6 - (calc) [facility] Comment: Not Reported: [...] [facility] Blood 06/29/2024 9:21 AM DRILL RUNNER 06/29/2024 9:21 AM DRILL RUNNER Narrative [facility] - 06/30/2024 5:11 AM DRILL RUNNER FASTING:YES FASTING: YES Savana Sanchez NP LAB BLOOD ORDERABLES Final Re sult [facility]STI [facility] [address] [place] [address] * RetinaVue Scanner - OU - Both Eyes (04/18/2024) Anatomical Region Laterality Modality Head Fundus Photograp hy Retina 04/18/2024 Savana Sanchez SILVERER OPHTH PHOTOGRAPHY Final Resul t * Dexa [...] Hep C Ab Negative Negative KAYLA GALLAGHER (DAVID) Comment:Testing performed by : [facility], [address] [place] [address], [address] Blood specimen (specimen) 04/12/2019 1:33 PM CDT 04/13/2019 9:46 AM CDT Zahida Leahy NP LAB MICROBIOLOGY - GENERAL OR DERABLES Final Result Performing Organization Address City/State/[facility] Co de Phone Number KAYLA GALLAGHER (DAVID) [address] [place] [address] * COLONOSCOPY (07/05/2016 1:12 PM DRILL RUNNER) Historical Provider HEALTH MAINTENANCE Final Result * HM COLONOSCOPY (07/05/2016) HM Colonoscopy Unknown Historical Provider HEALTH MAINTENANCE Final Result from Last 3 Months or Most Recently Relevant to Health Maintenance Insurance CIGNA [facility] AETNA MEDICARE GOLD [facility] OPEN [facility] HMO/PPO Address: [facility] [id number] [place] [address] Care Teams Disk Sander Relationship Specialty Start Date End Date Savana Sanchez NP [address] [address] PCP - General Soyfreeze Operator 10/05/23
--- OUTSIDE RECORDS SUMMARY | 2025-02-06 08:53 | XMS_ITS | Encounter Summary ---
Author Organization [facility] Address [address] [place] [address] Care Team Providers Care Slurry Tank Tender Name Role Phone Zahida Leahy Travis [facility] Primary Care Provider Encounter Details Date Type Department Care Team (Late Contact Info) Description 01/17/2009 Outpatient Historical [facility], [address] Indu Barth MD [address] [place] [address] [place] [address] Malignant Neoplasm of Breast (Female), Unspecified Site (CMS/HCC) Social History Tobacco Use Types Packs/Day Years Used Date Smoking Tobacco: Never Alcohol Use Standard Drinks/Week Comments Yes 0 (1 standard drink = 0.6 oz pur e alcohol) Comments Unknown Sex and Gender Information Value Date Recorded Sex Assigned at Not on file Legal Sex Female 5:39 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 Gender Identity Not on file Sexual Orientation Not on file documented as of this encounter Plan of Treatment Upcoming Encounters Date Type Department Care Team (Late Contact Info) Description 02/13/2025 9:00 AM CDT Office Visit [facility] Oncology and Hematology - [address] [place] [address] Real Amaro MD [address] [facility] [address] [place] [address] documented as of this encounter Visit Diagnoses Diagnosis Malignant neoplasm of breast (female), unspecified site documented in this encounter Care Teams Slurry Tank Tender Relationship Specialty Start Date End Date Zahida Leahy FNP PCP - General Nurse Practitioner Family 10/15/20 documented as of this encounter
--- OUTSIDE RECORDS SUMMARY | 2025-02-06 08:53 | XMS_ITS | Encounter Summary ---
Author Organization [facility] Address [address] [place] [address] Care Team Providers Care Apartment Maintenance Technician Name Role Phone Zahida Leahy [facility] Primary Care Provider [phone] Encounter Details Date Type Department Care Team (Latest Contact Info) Description 06/11/2008 Outpatient Historical [facility] Radiation Oncology [place] [address] [place] [phone] Adarsh Hudson MD [address] [place] [address] Malignant Neoplasm of Upper-Outer Quadrant of Female Breast (CMS/HCC) Social History Tobacco Use Types Packs/Day Years Used Date Smoking Tobacco: Never Assessed Comments Unknown Sex and Gender Information Value Date Recorded Sex Assigned at Not on file Legal Sex Female 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 [address] [place] [address] documented as of this encounter Visit Diagnoses Diagnosis Malignant neoplasm of upper-outer quadrant of female breast (CMS/HCC) Malignant neoplasm of upper-outer quadrant of female breast documented in this encounter Care Teams Apartment Maintenance Technician Relationship Specialty Start Date End Date Zahida Leahy FNP PCP - General Nurse Practitioner Family 10/15/20 documented as of this encounter
[2025-02-06 09:11] LABS: Estimated Glomerular Filt Rate 32
== END 2025-02-06 08:42 | disposition home or self-care (01) ==
PROVIDERS: Visit Provider Internal Medicine Hematology & Oncology
DX: K76.9 Liver disease, unspecified (principal); K80.20 Calculus of gallbladder without cholecystitis without obstruction; K76.0 Fatty (change of) liver, not elsewhere classified
CPT/HCPCS: 71260; 74177; Q9967

== ENCOUNTER 2025-04-10 07:29 | Outpatient (CLI) | payer MEDICARE, SELFPAY ==
--- NOTE | ~2025-04-10 | CT_ITS ---
EXAMINATION: CT chest abdomen pelvis w con DATE: 04/10/2025 08:00 INDICATION: Cecal cancer. TECHNIQUE: Computed tomography (CT) of the chest, abdomen, and pelvis was performed with 100 mL Omnipaque 350 intravenous contrast. Automated exposure control and iterative reconstruction technique were employed. The dose-length product was 1644.66 mGy-cm. COMPARISON: CT 02/06/2025, 02/16/21 FINDINGS: CHEST CT: There is mild peripheral scarring in right lung. No pleural effusion. There is a right internal jugular port with tip in proximal right atrium. The heart size is normal. No pericardial effusion. There are surgical changes in right breast and right axilla. Paraesophageal varices are noted. There is mild chronic anterior wedging of multiple vertebral bodies. There is mild thoracic spondylosis. ABDOMEN/PELVIS CT: The liver demonstrates hypertrophy of left lateral segment and surface nodularity, consistent with cirrhosis. There is a 2.0 cm hypodense mass in left hepatic lobe with adjacent surgical clip. There is a 2.0 cm hypodense mass in right hepatic lobe. There is a gallstone in the gallbladder which is normal in size. The spleen, pancreas, adrenal glands, and kidneys are normal. There are changes of right hemicolectomy. There are no dilated loops of bowel. There are no pathologically enlarged lymph nodes. There is no free intraperitoneal fluid. There is mild lumbar spondylosis. IMPRESSION: 1. Two stable liver masses, consistent with metastatic disease. 2. Cirrhosis of the liver with portal venous hypertension. Reviewed, dictated and finalized at location E.
--- OUTSIDE RECORDS SUMMARY | 2025-04-10 07:33 | XMS_ITS | Encounter Summary ---
Author Organization [facility] Address [address] [place] [address] Care Team Providers Care Attendant Lodging Facilities Name Role Phone Zahida Leahy [facility] Primary Care Provider [phone] Encounter Details Date Type Department Care Team (Latest Contact Info) Description 06/11/2008 Outpatient Historical [facility] Radiation Oncology [address] [place] [address] Adarsh Hudson MD [address] [place] [address] Malignant Neoplasm of Upper-Outer Quadrant of Female Breast (CMS/HCC) Social History Tobacco Use Types Packs/Day Years Used Date Smoking Tobacco: Never Assessed Comments Unknown Sex and Gender Information Value Date Recorded Sex Assigned at Not on file Legal Sex Female 5:39 AM 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 Gender Identity Not on file Sexual Orientation Not on file documented as of this encounter Plan of Treatment Upcoming Encounters Date Type Department Care Team (Late st Contact Info) Description 04/17/2025 11:30 AM CDT Office Visit [facility] Oncology and Hematology - Tim [address] [facility] [address] [place] [address] Real Amaro MD [address] [facility] [address] [place] [address] documented as of this encounter Visit Diagnoses Diagnosis Malignant neoplasm of upper-outer quadrant of female breast (CMS/HCC) Malignant neoplasm of upper-outer quadrant of female breast documented in this encounter Care Teams Attendant Lodging Facilities Relationship Specialty Start Date End Date Zahida Leayh FNP PCP - General Nurse Practitioner Family 10/15/20 documented as of this encounter
--- OUTSIDE RECORDS SUMMARY | 2025-04-10 07:33 | XMS_ITS | Encounter Summary ---
Author Organization [facility] Address [address] [place] [address] Care Team Providers Care Compensation Consultant Name Role Phone Zahida Leahy Travis [facility] Primary Care Provider [phone] Encounter Details Date Type Department Care Team (Late Contact Info) Description 01/17/2009 Outpatient Historical [facility] [address] Indu Barth MD [address] [place] [address] [place] [address] Malignant Neoplasm of Breast (Female), Unspecified Site (CMS/HCC) Social History Tobacco Use Types Packs/Day Years Used Date Smoking Tobacco: Never Alcohol Use Standard Drinks/Week Comments Yes 0 (1 standard drink = 0.6 oz pur e alcohol) Comments Unknown Sex and Gender Information Value Date Recorded Sex Assigned at Not on file Legal Sex Female 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 Gender Identity Not on file Sexual Orientation Not on file documented as of this encounter Plan of Treatment Upcoming Encounters Date Type Department Care Team (Late Contact Info) Description 04/17/2025 11:30 AM CDT Office Visit [facility] Oncology and Hematology - Tim [address] [place] [address] Real Amaro MD [address] [facility] [place] [facility] [address] [place] [address] documented as of this encounter Visit Diagnoses Diagnosis Malignant neoplasm of breast (female), unspecified site documented in this encounter Care Teams Compensation Consultant Relationship Specialty Start Date End Date Zahida Leahy FNP PCP - General Nurse Practitioner Family 10/15/20 documented as of this encounter
--- OUTSIDE RECORDS SUMMARY | 2025-04-10 07:33 | XMS_ITS | Encounter Summary ---
Author Organization [facility] Address [address] [place] [address] Care Team Providers Care Medical Esthetician Name Role Phone Zahida Leahy [facility] Primary Care Provider [phone] Encounter Details Date Type Department Care Team (Late Contact Info) Description 04/08/2025 Orders Only [facility] Oncology and Hematology [facility] [address] [place] [address] Real Amaro MD [facility] [address] [place] [address] Cecal cancer (CMS/HCC) Social History Tobacco Use Types Packs/Day Years Used Date Smoking Tobacco: Never Smokeless Tobacco: Never Alcohol Use Standard Drinks/Week Comments Yes 0 (1 standard drink = 0.6 oz pur e alcohol) 1/3MO Comments No Sex and Gender Information Value Date Recorded Sex Assigned at Not on file Legal Sex Female 5:39 AM CUSTODIAN Gender Identity Not on file Sexual Orientation Not on file Occupation Industry Job Start Date Job End Date Not on file Not on file Not on file Not on file documented as of this encounter Plan of Treatment Upcoming Encounters Date Type Department Care Team (Late Contact Info) Description 04/17/2025 11:30 AM CDT Office Visit [facility] Oncology and Hematology [address] [place] [address] Real Amaro MD [address] [facility] [address] [place] [phone] documented as of this encounter Visit Diagnoses Diagnosis Cecal cancer (CMS/HCC) Malignant neoplasm of cecum documented in this encounter Care Teams Medical Esthetician Relationship Specialty Start Date End Date Zahida Leahy FNP PCP - General Nurse Practitioner Family 10/15/20 documented as of this encounter
--- OUTSIDE RECORDS SUMMARY | 2025-04-10 07:33 | XMS_ITS | Encounter Summary ---
Author Organization [facility] Address [address] [place] [address] Care Team Providers Care Railroad Crane Operator Name Role Phone Zahida Leahy [facility] Primary Care Provider [phone] Encounter Details Date Type Department Care Team (Latest Contact Info) Description 05/10/2008 Outpatient Historical [facility] Radiation Oncology [address] [place] [address] Adarsh Hudson MD [address] [place] [address] Malignant Neoplasm of Upper-Outer Quadrant of Female Breast (CMS/HCC) Social History Tobacco Use Types Packs/Day Years Used Date Smoking Tobacco: Never Assessed Comments Unknown Sex and Gender Information Value Date Recorded Sex Assigned at Not on file Legal 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 Female 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 Gender Identity Not on file Sexual Orientation Not on file documented as of this encounter Plan of Treatment Upcoming Encounters Date Type Department Care Team (Late st Contact Info) Description 04/17/2025 11:30 AM CDT Office Visit [facility] Oncology and Hematology - Tim [address] [facility] [address] [place] [address] Real Amaro MD [address] [facility] [address] [place] [address] documented as of this encounter Visit Diagnoses Diagnosis Malignant neoplasm of upper-outer quadrant of female breast (CMS/HCC) Malignant neoplasm of upper-outer quadrant of female breast documented in this encounter Care Teams Railroad Crane Operator Relationship Specialty Start Date End Date Zahida Leahy FNP PCP - General Nurse Practitioner Family 10/15/20 documented as of this encounter
--- OUTSIDE RECORDS SUMMARY | 2025-04-10 07:33 | XMS_ITS | Clinical Summary ---
Author Organization [employer] [address] [place] [address] [place] [address] Care Team Providers Care Spreading Machine Operator Name Role Phone Leahy, Zahida Travis [facility] Primary Care Provider [phone] Allergies No known active allergies Medications loratadine [...] of muscularis propria into pericolorectal tissues (T3) Take 1 Tablet (10 mg) by mouth [...] of muscularis propria into pericolorectal tissues (T3) Apply to affected area see administration instructions. Apply to port site 30 minutes prior to access 30 Gram 3 021 Active benazepriL (LOTENSIN) 40 mg tablet Take 40 mg by mouth daily. Active clobetasoL (TEMOVATE) 0.05 % Cream APPLY CREAM TOPICALLY TO AFFECTED AREA TWICE DAILY NEEDED FOR RADIATION INDUCED RASH Active pantoprazole (Protonix) 40 mg Tablet, Delayed Release (E.C.) Take 1 Tablet (40 mg) by mouth daily. Continue for 3 months. 30 Tablet 2 022 Active potassium chloride (KLOR-CON) 20 mEq Extended Release tablet Take 1 Tablet (20 mEq) by mouth daily. 30 Tablet 4 023 Active metFORMIN (GLUCOPHAGE XR) 500 mg Extended Release 24 hour tablet Take 500 mg by mouth daily with breakfast. Active ondansetron (ZOFRAN ODT) 4 mg Tablet, [...] Use as directed 21 Tablet 025 Active ondansetron (Zofran) 8 mg Tablet Take 1 Tablet (8 mg) by mouth every 8 hours as needed for Nausea/Emesis. 90 Tablet 1 025 Active diphenoxylate-atrop ine 2.5 mg-0.025 mg tabletIndications:C ecal cancer (CMS/HCC),Diarrhea due to drug,Diarrhea Take 1 Tablet by mouth 4 times daily as needed for Diarrhea/Loose Stools. 90 Tablet Active triamterene-hydroCH LOROthiazide (MAXZIDE 25) 37.5-25 mg tablet Take by mouth daily. 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 Shweta Zaman PLANNING LEAD: ? Brim Rounder: ? Palliative care physician: Nurse Navigator: Advanced [...] End Date: Clinical trial: [] Yes [] [place] of trial: Drugs given and date completed: [...] other tests as indicated on each visit. VP CLIENT SERVICES: As needed. * Testing as indicated. Please continue to see your primary care provider/RACK PULLER for all general health care recommended for a female your age. Possible late and/or correction effects that someone with this type of [...] back. OTHER COMMENTS REFERRALS [] Star [] [facility] [] [facility] Pastoral Services [] Other (Specify): ADDITIONAL RESOURCES Patients may have many questions and concerns after their cancer treatment ends. A list of local resources as provided below to assist you. 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 ROV 1 year lymphedma mammo august Assessment & Plan (05/07/2011 3:03 PM PATIENT ACCOUNTS COORDINATOR): 3 1/2 years out On TMX Discussed [...] yet Assessment & Plan (05/07/2010 2:11 PM PATIENT ACCOUNTS COORDINATOR): 2 1/2 yrs out Mammogram in August [...] Is doing well with TMX for her ER+NJ- tumor. Had b/l mammogram in Jul KASH PLAN: cont TMX Needs right sided mammogram in January and b/l in Jul with DMR visit. ROV 3 months. (no RT followup) Encounters Date Type Department Care Team Description 04/08/2025 Orders Only [facility] Oncology and Hematology [facility] [address] [place] [phone] Real Amaro MD Cecal cancer ([facility]/HCC) 03/29/2025 Orders Only [facility] Oncology and Hematology [facility] [address] [place] [phone] Real Amaro MD 03/27/2025 8:45 AM CDT Office Visit [facility] Oncology and Hematology [facility] [address] [place] [address] Real Amaro MD Cecal cancer ([facility]/HCC) (Primary Dx) 03/25/2025 Orders Only [facility] Oncology and Hematology - Tim [address] [place] [phone] Real Amaro MD Cecal cancer ([facility]/HCC) 03/12/2025 External Device Data STL ABSTRACTION Provider, Abstract 03/11/2025 Orders Only [facility] Oncology and Hematology [address] [place] [address] Real Amaro MD Cecal cancer ([facility]/HCC) 03/07/2025 Refill [facility] Oncology and Hematology - Tim [address] [place] [phone] Real Amaro MD Cecal cancer ([facility]/HCC); Diarrhea due to drug; Diarrhea 02/25/2025 Orders Only [facility] Oncology and Hematology - [address] [place] [phone] Real Amaro MD Cecal cancer ([facility]/HCC) 02/15/2025 Refill [facility] Oncology and Hematology - Tim [address] [place] [phone] Real Amaro MD 02/14/2025 Orders Only [facility] Oncology and Hematology - Tim [address] [place] [phone] Real Amaro MD 02/13/2025 9:00 AM CDT Office Visit [facility] Oncology and Hematology [facility] [address] [place] [phone] Real Amaro MD Cecal cancer ([facility]/HCC) (Primary Dx) 02/11/2025 Orders Only [facility] Oncology and Hematology [facility] [address] [place] [phone] Real Amaro MD Cecal cancer ([facility]/HCC) 02/07/2025 Orders Only [facility] Oncology and Hematology - Tim [address] [place] [address] Real Amaro MD 01/30/2025 External Device Data STL ABSTRACTION Provider, Abstract 01/28/2025 Orders Only [facility] Oncology and Hematology [facility] [address] [place] [phone] Real Amaro MD Cecal cancer ([facility]/HCC) 01/23/2025 Orders Only [facility] Oncology and Hematology - Tim [address] [place] [phone] Real Amaro MD 01/14/2025 Orders Only [facility] Oncology and Hematology [facility] [address] [place] [phone] Real Amaro MD Cecal cancer ([facility]/HCC) 01/10/2025 External Device Data STL ABSTRACTION Provider, Abstract from Last 3 Months Immunizations Immunization Administration [...] on file Legal Sex Female 5:39 AM PATIENT ACCOUNTS COORDINATOR Gender Identity Not on file Sexual Orientation Not on file Occupation Industry Job Start Date Job End Date Not on file Not on file Not on file Not on file Last Filed Vital Signs Vital Sign Reading Time Taken Comments Blood Pressure 147/81 03/27/2025 8:59 AM CDT Pulse 77 03/27/2025 8:55 AM CDT Temperature 36.4 C (97.5 F) 03/27/2025 8:55 AM CDT Respiratory Rate 15 03/27/2025 8:55 AM CDT Oxygen Saturation 97% 03/27/2025 8:55 AM CDT Inhaled Oxygen Concentration - - Weight 104.3 kg (230 lb) 03/27/2025 8:55 AM CDT Height 157.5 cm (5' 2) 03/22/2022 7:06 AM CDT Body Mass Index 42.07 03/22/2022 7:06 AM CDT Plan of Treatment Upcoming Encounters Date Type Department Care Team (Late st Contact Info) Description 04/17/2025 11:30 AM CDT Office Visit [facility] Oncology and Hematology [facility] [address] [place] [phone] Real Amaro MD [address] [facility] [address] [place] [phone] Health Maintenance Due Date Last Done [...] 50+ YEARS Completed 07/20/2022 INFLUENZA VACCINE Completed 03/13/2025, , 04/19/2022, Additional history exists Medical Devices Explanted Type Area Cloth Doubling Machine Operator Device Identifier Shelf Expiration Date Model / Serial / Lot Port Pwrprt Isp Clrvu 8fr [id number] - [id number] Implanted:Qty: 1 on 02/03/2015 by Myriam Sotomayor MD at [facility] Explanted:Qty: 1 on 10/13/2015 at [facility] Port Left: Chest CR [employer]ARD[employer] 05/24/2016 [id number] / / [id number] Description:placement left I J Procedures Procedure Name Priority Date/Time Associated Diagnosis Comments COMPREHENSIVE METABOLIC PANEL Routine 03/27/2025 11:10 AM CDT BASIC METABOLIC PANEL Routine 02/13/2025 10:15 AM CDT COMPREHENSIVE METABOLIC PANEL Routine 02/13/2025 10:[address] CHEST ABDOMEN PELVIS W CONT Routine 02/06/2025 2:18 PM CDT BASIC METABOLIC PANEL Routine 01/23/2025 2:35 PM CDT COMPREHENSIVE METABOLIC PANEL Routine 01/23/2025 2:16 PM CDT MAMMO BILAT DIAGNOSTIC Routine 9:21 AM CDT COLONOSCOPY REPORT 07/23/2019 7: 46 AM PATIENT ACCOUNTS COORDINATOR HEMOGLOBIN A1C Routine 08/06/2015 7:39 AM PATIENT ACCOUNTS COORDINATOR Toxic neuropathy Impaired glucose metabolism from Last 3 Months or Most Recently Relevant to Health Maintenance Results * COMPREHENSIVE METABOLIC PANEL (03/27/2025 11:10 AM CDT) Only the most recent of3 resultswithin the time period is included. Blood us Real Amaro MD CHEMISTRY ORDERABLES Final Resu lt * BASIC METABOLIC PANEL (02/13/2025 10:15 AM CDT) Only the most recent of2 resultswithin the time period is included. Blood us Real Amaro MD CHEMISTRY ORDERABLES Final Resu lt * CT CHEST ABDOMEN PELVIS W CONT (02/06/2025 2:18 PM CDT) Anatomical Region Laterality Modality Chest Computed Tomogra phy us Real Amaro MD CT ORDERABLES Final Result * MAMMO BILAT DIAGNOSTIC (11/22/2023 9:21 AM CDT) Anatomical Region Laterality Modality Breast Bilateral Mammography us Real Amaro MD MAMMO ORDERABLES Final Result * COLONOSCOPY REPORT (07/23/2019 7:46 AM PATIENT ACCOUNTS COORDINATOR) Narrative Procedure Note Sita Carvajal MD - 07/23/2019 7:45 AM CST [facility] Endoscopy Patient Name: Laly Kincaid Procedure Date: [...] normal. There was evidence of a prior qaef-nt-hswi ileo-colonic anastomosis in the proximal transverse colon. [...] of the ileum was normal. - Patent krzx-au-lzih ileo-colonic anastomosis, characterized by healthy appearing mucosa. [...] of Addenda: [address]; [place] [address] Sita Carvajal MD GI PROCEDURE ORDERABLES Final Result * HEMOGLOBIN A1C (08/06/2015 7:39 AM PATIENT ACCOUNTS COORDINATOR) HEMOGLOBIN A1C 6.0 4.0 - 6.0 % 08/06/2015 2:55 PM PATIENT ACCOUNTS COORDINATOR [facility] [email or web address] [facility] Comment:Note: Effective as o f 07/18/2014 a new methodology, Turbidimetric inhibition immunoassay (TINIA),has been implemented. EST. AVG GLUCOSE, A1C 126 mg/dL 08/06/2015 2:55 PM PATIENT ACCOUNTS COORDINATOR [facility] [email or web address] [facility] Blood Venipuncture - L ab Collect / Unknown 08/06/2015 7:39 AM PATIENT ACCOUNTS COORDINATOR 08/06/2015 7:39 AM PATIENT ACCOUNTS COORDINATOR Vivien Atkins MD CHEMISTRY ORDERABLES Final Result [facility] [email or web address] [facility] CLIA# [id number] [address] [place] [address] from Last 3 Months or Most Recently Relevant to Health Maintenance Insurance [facility] AETNA O MCR Advance Directives For more information, please contact: [phone] * Full Code (Latest Code Status on [...] 7:36 AM 12/24/2014 2:12 PM Care Teams Spreading Machine Operator Relationship Specialty Start Date End Date Zahida Leahy FNP PCP - General Nurse Practitioner Family 10/15/20
--- OUTSIDE RECORDS SUMMARY | 2025-04-10 07:33 | XMS_ITS ---
Author Organization [employer] [address] [place] [address] [place] [address] Care Team Providers Care Doormaker Name Role Phone Zahida eLahy Travis LAY OUT WORKER Primary Care Provider [phone] Active Problems Patient Care Coordination No te [...] oncologist: Primary care physician: Dr. Shweta Zaman PUMP ATTENDANT: ? Protection Agent: ? Palliative care physician: Nurse Navigator: Advanced Practice Nurse: Terry Nobs REGISTERED ROUTE ASSOCIATE Other care team providers: TREATMENT SUMMARY Cancer [...] End Date: Clinical trial: [] Yes [] [place] of trial: Drugs given and date completed: [...] other tests as indicated on each visit. CONVENTION SERVICES MANAGER: As needed. * Testing as indicated. Please continue to see your primary care provider/CONTOUR PATH TAPE MILL OPERATOR for all general health care recommended for a female your age. Possible late and/or terminal clerk effects that someone with this type of [...] [] Star [] [facility] [] [facility] [] Other (Specify): ADDITIONAL RESOURCES Patients may have many questions and concerns after their cancer treatment ends. A list of local resources as provided below to assist you. [facility] cancer information center: [place] Cancer Society (ACS): www.acs.org National Cancer [place] (NCI): www.cancer.gov [place] Society of clinical oncology (ASCO): www.cancer.net Komen: www.komen.org Livestrong: www.Bradford NetworkstronPeerPong.Oxsensis Radiation therapy: www.rtanswers.org Patient signature: REGISTERED ROUTE ASSOCIATE signature: Date delivered on: 60 minutes of [...] 5 Assessment & Plan (05/14/2013 2:19 PM ASSEMBLER CONVERTIBLE TOP): 5 1/2 years out OFF TMX mammo September Assessment & Plan (04/21/2012 9:56 AM CDT): 4 1/2 yrs On TMX 4 years Scar tissue near brachy site; rash lower breast (rign worm?) ?Psoriasis? ROV 1 year lymphedma mammo august Assessment & Plan (05/07/2011 3:03 PM ASSEMBLER CONVERTIBLE TOP): 3 1/2 years out On TMX Discussed [...] yet Assessment & Plan (05/07/2010 2:11 PM ASSEMBLER CONVERTIBLE TOP): 2 1/2 yrs out Mammogram in August [...]
--- OUTSIDE RECORDS SUMMARY | 2025-04-10 07:33 | XMS_ITS | Clinical Summary ---
Author Organization [facility] Building [address] Address [address] [place] [address] Care Team Providers Care Advertising Account Manager Name Role Phone Savana Sanchez NP Primary Care Provider [phone] Allergies No known active allergies Medications loratadine (CLARITIN) 10 mg tablet take 1 tablet by oral route every day 0 0 4 Active diphenoxylate- atropine (LOMOTIL) 2.5-0.025 mg per tablet Take 1 [...] Active fluticasone propionate (FLONASE) 50 mcg/actuation nasal sprayIndicatio ns:Acute effusion of right ear Administer 2 sprays into each nostril daily 16 g 3 Active Jardiance 25 mg tablet Take 1 tablet (25 mg total) by mouth daily 30 tablet 5 4 Active benazepriL (LOTENSIN) 40 mg tablet Take 1 tablet (40 mg total) by mouth daily 90 tablet 3 10/23/202 4 Active citalopram (CeleXA) 40 mg tablet Take 1 tablet (40 mg total) by mouth daily 90 tablet 3 4 Active mecobalamin (B12 ACTIVE ORAL) Take by mouth Active ferrous sulfate (IRON ORAL) Take by mouth Active clonazePAM (KlonoPIN) 0.5 mg tablet Take 1 tablet (0.5 mg total) by mouth 2 (two) times a day as needed for anxiety 60 tablet 1 5 Active triamterene-hy droCHLOROthiaz shirley 37.5-25 mg per tablet/capsule Take 1 tablet/capsule by mouth daily 90 tablet 3 5 03/13/20 26 Active levothyroxine (SYNTHROID) 200 mcg tablet Take 1 tablet (200 mcg total) by mouth cultural historian before breakfast 30 tablet 1 5 Active levothyroxine (SYNTHROID) 200 mcg tablet Take 1 tablet (200 mcg total) by mouth cultural historian before breakfast 60 tablet 3 4 03/18/20 25 Discontinu ed(Reorder ) clonazePAM (KlonoPIN) 0.5 mg tablet Take 1 tablet (0.5 mg total) by mouth 2 (two) times a day as needed for anxiety 60 tablet 1 4 03/13/20 25 Discontinu ed(Reorder ) hydroCHLOROthi azide (HYDRODIURIL) 25 mg tablet Take 1 tablet (25 mg total) by mouth daily 90 tablet 3 4 03/13/20 25 Discontinu ed(Alterna te therapy) Active Problems Problem Noted Date Diagnosed Date Pedal edema 03/14/2025 Assessment & Plan (03/14/2025 12:01 PM CDT): Finger fracture, right 03/13/2025 Fracture of wrist 03/13/2025 Metastatic colon cancer to liver 03/13/2025 Periorbital ecchymosis of right eye 03/13/2025 Screening for osteoporosis 03/13/2025 Assessment & Plan (03/14/2025 12:01 PM CDT): Orders: Dexa Axial Skeleton Bone Density 1 or 2 Site; Future Dyspnea on exertion 03/13/2025 Assessment & Plan (03/14/2025 12:01 PM CDT): Orders: Ambulatory referral to Cardiology; Future ECG 12 lead; Future Orthopnea 03/13/2025 Assessment & Plan (03/14/2025 12:01 PM CDT): Orders: Ambulatory referral to Cardiology; Future ECG 12 lead; Future Class 2 severe obesity with serious comorbidity [...] sessions. Continue weight loss. Immunization due 04/19/2024 Assessment & Plan (03/14/2025 12:01 PM CDT): Orders: Flu Vaccine High Dose Tri PF 65y+ IM - Fluzone High Dose () Post-menopausal 04/19/2024 Assessment & Plan (03/14/2025 12:01 PM CDT): Orders: Dexa Axial Skeleton Bone Density 1 or 2 Site; Future Need for hepatitis B screening test 04/19/2024 Type 2 diabetes mellitus with hyperglycemia 02/25 Assessment & Plan (03/14/2025 12:01 PM CDT): Orders: Hemoglobin A1c; Future Assessment & Plan (04/19/2024 7:39 AM CDT): [...] as discussed Anxiety 10/05/2023 Assessment & Plan (03/14/2025 12:01 PM CDT): Assessment & Plan (10/05/2023 4:07 PM CDT): . Stable continue clonazepam 0.5 mg b.i.d. p.r.n. Encounter for screening mamm ogram for malignant neoplasm of breast 10/05/2023 Assessment & Plan (03/14/2025 12:01 PM CDT): Orders: SCREENING MAMMOGRAM BILATERAL W JAYCEE Assessment & Plan (10/05/2023 4:07 PM CDT): Mammogram ordered Screening for colon cancer 10/05/2023 Annual physical exam 07/21/2022 Assessment & Plan (07/21/2022 4:19 PM GOLF CLUB ASSEMBLER): Patient Counseling: --Nutrition: Stressed importance of moderation [...] pending. Ordered today, reviewed previous labs from [facility] in care everywhere Major depressive disorder, recurrent, mild 06/03 Assessment & Plan (03/14/2025 12:01 PM CDT): Assessment & Plan (10/05/2023 4:06 PM CDT): Stable. Continue citalopram 40 mg daily Assessment & Plan (01/20/2023 8:59 PM CDT): Stable on citalopram and clonazepam prn. I checked their [place] OIL RAG WASHER sheet, and it was consistent with prescribed medications. F/u 6 months Assessment & Plan (07/21/2022 4:19 PM GOLF CLUB ASSEMBLER): Stable. Overall doing well. Using clonazepam about once a day. Will continue current medications and have her follow-up in 6 months Assessment & Plan (12/02/2021 2:34 PM CDT): Stable on citalopram 40mg daily. Uses clonazepam sparingly prn. Mostly in evenings. I checked their [place] OIL RAG WASHER sheet, and it was consistent with prescribed medications. F/u 6 months Assessment & Plan (06/03/2021 1:45 PM GOLF CLUB ASSEMBLER): Stable on current medication. Continue citalopram as ordered. Uses clonazepam sparingly. Renal given. May follow up in 6 months. I checked their [place] OIL RAG WASHER sheet, and it was consistent with prescribed medications. Vitamin D deficiency 01/31/2020 Assessment & Plan (03/14/2025 12:01 PM CDT): Assessment & Plan (10/05/2023 4:06 PM CDT): Vitamin-D level ordered Assessment & Plan (12/02/2020 1:51 PM CDT): Being managed by endocrinology and oncology now. Patient is taking vitamin-D supplements daily Assessment & Plan (08/04/2020 1:20 PM GOLF CLUB ASSEMBLER): Patient has not been taking her vitamin [...] food. Mixed hyperlipidemia 10/12/2018 Assessment & Plan (03/14/2025 12:01 PM CDT): Orders: Lipid panel; Future Assessment & Plan (10/05/2023 4:05 PM CDT): Continue atorvastatin 10 mg at HS and to limit fats in diet. Lipid panel ordered. Assessment & Plan (01/20/2023 8:58 PM CDT): Lipid abnormalities are stable, reviewed previous lipid levels in [facility]. Pharmacotherapy as ordered. Order for lipid panel was given today to be obtained. Pt voiced understanding of lab drawn and continuation of current medication regimen. Assessment & Plan (07/21/2022 4:17 PM GOLF CLUB ASSEMBLER): Lipid abnormalities are stable, reviewed previous lipid levels in [facility]. Pharmacotherapy as ordered. Order for lipid panel was given today to be obtained. Pt voiced understanding of lab drawn and continuation of current medication regimen. Assessment & Plan (12/02/2021 2:33 PM CDT): Stable. Medications renewed. Lipid panel ordered. F/u 6 months Assessment & Plan (06/03/2021 1:46 PM GOLF CLUB ASSEMBLER): Lipid abnormalities are stable, reviewed previous lipid levels in [facility]. Pharmacotherapy as ordered. Assessment & Plan (12/02/2020 1:50 PM CDT): Lipid abnormalities are stable, reviewed previous lipid levels in [facility]. Pharmacotherapy as ordered. Order for lipid panel was given today to be obtained. Pt voiced understanding of lab drawn and continuation of current medication regimen. Assessment & Plan (06/03/2020 3:22 PM GOLF CLUB ASSEMBLER): Lipid abnormalities are stable. Pharmacotherapy as ordered. [...] oncologist: Primary care physician: Dr. Shweta Zaman PIT MANAGER: ? Telecasting Technician: ? Palliative care physician: Nurse Navigator: Advanced [...] agents used: End Date: Clinical trial: Yes [place] of trial: Drugs given and date completed: [...] other tests as indicated on each visit. PLASTIC PRESS MOLDER: As needed. * Testing as indicated. Please continue to see your primary care provider/SKEIN WASHER for all general health care recommended for a female your age. Possible late and/or termite exterminator helper effects that someone with this type of [...] cancer coming back. OTHER COMMENTS REFERRALS [facility] Integrative Therapy [facility] Services Other (Specify): ADDITIONAL RESOURCES Patients may have many questions and concerns after their cancer treatment ends. A list of local resources as provided below to assist you. [facility] cancer information [place]: [place] Cancer Society (ACS): www.acs.org National Cancer Skillman (NCI): www.cancer.gov [place] Society of clinical oncology (ASCO): www.cancer.net Komen: www.komen.org Livestrong: www.[place] [employer] Pharmaceuticalstron[employer] Pharm[employer] Radiation therapy: www.rtanswers.org Patient signature: REGIONAL ECONOMIST signature: Date delivered on: 60 minutes of [...] oncologist: Primary care physician: Dr. Shweta Zaman PIT MANAGER: ? Telecasting Technician: ? Palliative care physician: Nurse Navigator: Advanced [...] End Date: Clinical trial: [] Yes [] [place] of trial: Drugs given and date completed: [...] other tests as indicated on each visit. PLASTIC PRESS MOLDER: As needed. * Testing as indicated. Please continue to see your primary care provider/SKEIN WASHER for all general health care recommended for a female your age. Possible late and/or termite exterminator helper effects that someone with this type of [...] back. OTHER COMMENTS REFERRALS [] Star [] [facility] Integrative Therapy [] [facility] Pastoral Services [] Other (Specify): ADDITIONAL RESOURCES Patients may have many questions and concerns after their cancer treatment ends. A list of local resources as provided below to assist you. [facility] cancer information [place]: [place] Cancer Society (ACS): www.acs.org National Cancer Skillman (NCI): www.cancer.gov [place] Society of clinical oncology (ASCO): www.cancer.net Komen: www.komen.org Livestrong: www.[place] Pharmaceuticalstrong.[employer] Radiation therapy: www.rtanswers.org Patient signature: REGIONAL ECONOMIST signature: Date delivered on: 60 minutes of time were spent delivering this cancer treatment summary and survivorship plan. Assessment & Plan (06/03/2021 1:39 PM GOLF CLUB ASSEMBLER): Managed by Oncology at [facility]. 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 Not [...] needed Assessment & Plan (08/28/2021 1:18 PM GOLF CLUB ASSEMBLER): Diagnosed at the age of 22. She [...] needed Assessment & Plan (06/03/2021 1:38 PM GOLF CLUB ASSEMBLER): Managed by endocrinologyValentine Pace. Assessment & Plan [...] . Assessment & Plan (08/04/2020 1:19 PM GOLF CLUB ASSEMBLER): Diagnosed at the age of 22. She [...] Rivera Assessment & Plan (05/30/2017 8:06 PM GOLF CLUB ASSEMBLER): TSH is still low. Will refer to endo. Assessment & Plan (03/17/2017 7:39 AM CDT): Her TSH was low. She was on 400mcg synthroid. Will decrease to 350mcg of synthroid. F/u 6-8 weeks with repeat TSH Essential hypertension 01/04/2014 Overview (10/01/2016): Essential hypertension Assessment & Plan (03/14/2025 12:01 PM CDT): Orders: Comprehensive metabolic panel; Future CBC with auto differential; Future Assessment & Plan (04/19/2024 11:22 AM CDT): [...] hydrochlorothiazide. Assessment & Plan (07/21/2022 4:17 PM GOLF CLUB ASSEMBLER): Stable/ Improved. Blood pressure is adequately controlled on current medication. We will not make any medication changes today. Will have her follow-up in 6 months for continued monitoring and management Assessment & Plan (12/02/2021 2:33 PM CDT): Improved/ stable. Continue current medications. F/u 6 months Assessment & Plan (06/03/2021 1:46 PM GOLF CLUB ASSEMBLER): Stable/ Improved. Blood pressure is adequately controlled [...] re-evaluation Assessment & Plan (06/03/2020 3:22 PM GOLF CLUB ASSEMBLER): Blood pressure is adequately controlled on current [...] Overview (09/30/2016): Morbid obesity Assessment & Plan (03/14/2025 12:01 PM CDT): Orders: Vitamin D 25 hydroxy; Future Assessment & Plan (10/05/2023 4:03 PM CDT): [...] CDT): BMI Follow-up includes: exercise counseling S/P [facility] 01/16/2009 Resolved Problems Problem Noted Date Diagnosed Date Resolved Date Screening for diabetes mellitus 10/05/2023 04/19/2024 Major [...] 12/27/2017 Assessment & Plan (05/30/2017 8:18 PM GOLF CLUB ASSEMBLER): Will go ahead and start antibiotics. She has a hx of mrsa. Treat with septra. Radiation-induced dermatitis 05/24/2017 06/03/2021 Assessment & Plan (06/03/2020 3:21 PM GOLF CLUB ASSEMBLER): On right breast. Will renew clobetasol cream per patient request. Uses p.r.n. Assessment & Plan (05/24/2017 5:00 PM GOLF CLUB ASSEMBLER): Having a lot of itching with dry [...] needed. Assessment & Plan (06/03/2020 3:23 PM GOLF CLUB ASSEMBLER): Stable on current medication. Continue clonazepam and [...] Encounters Date Type Department Care Team Description 03/13/2025 11:00 AM CDT Office Visit [facility] at [address] [phone] Savana Sanchez NP Essential hypertension (Primary Dx); Mixed hyperlipidemia; Primary hypothyroidism; Morbid obesity with BMI of 40.0-44.9, adult (HCC); Vitamin D deficiency; Anxiety; Major depressive disorder, recurrent, mild; Type 2 diabetes mellitus with hyperglycemia, without long-term current use of insulin (HCC); Encounter for screening mammogram for malignant neoplasm of breast; Immunization due; Screening for osteoporosis; Dyspnea on exertion; Orthopnea; Post-menopausal; Pedal edema 03/13/2025 Orders Only [facility] Primary Care at [address] [phone] Provider, MD Jennifer from Last 3 Months Immunizations Immunization Administration Dates Next Due Influenza, Quadrivalent, Hig h Dose, Preservative Free, Intrr 04/19/2022 Influenza, Quadrivalent, Spl it, Intramuscular 03/15/2016 Influenza, Quadrivalent, Spl it, Preservative Free, Intramuscular 04/12/2019 Influenza, Trivalent, Adjuva nted, Intramuscular 05/05/2015 Influenza, Trivalent, High D ose, Split, Preservative Free, Intramuscular 03/13/2025,04/18/2024 Influenza, Trivalent, IM (MDV) 05/05/2015,2014,06/05/2008 Influenza, Unspecified [...] - Arthritis Cancer (HCC) Depression Diabetes mellitus Hypertension Thyroid disease Family History Medical History [...] Not Answered Alcohol Use Standard Drinks/Week Comments Never 0 (1 standard drink = 0.6 oz pur e alcohol) PHQ-2 Answer Date Recorded PHQ-2 Total Score (If total score is 3 or more points, staff should administer the PHQ-9) 0 04/18/2024 AUDIT-C Answer Date Recorded Q1: How often do you have a drink containing alcohol? Never 03/13/2025 Q2: How many drinks containi ng alcohol do you have on a typical day when you are drinking? Patient does not drink Q3: How often do you have si x or more drinks on one occasion? Never 03/13/2025 Comments No Sex and Gender Information Value Date Recorded Sex Assigned at Not on file Legal Sex Female 8:01 PM GOLF CLUB ASSEMBLER Gender Identity Not on file Sexual Orientation Not on file Obstetrics History Para Term AB IAB SAB Ectopic Multiple Livin g Live Births 1 1 Date Outcome GA Total Labor Labor/2nd/3rd Weight Sex Type Anes PTL Ilda A1 A5 Name Clin Para Last Filed Vital Signs Vital Sign Reading Time Taken Comments Blood Pressure 138/84 03/13/2025 11:34 AM CDT Pulse 68 03/13/2025 10:59 AM CDT Temperature 36.3 C (97.3 F) 03/13/2025 10:59 AM CDT Respiratory Rate 17 12/05/2024 5:03 PM CDT Oxygen Saturation 94% 03/13/2025 10:59 AM CDT Inhaled Oxygen Concentration - - Weight 107.5 kg (237 lb) 03/13/2025 10:59 AM CDT Height 157.5 cm (5' 2.01) 03/13/2025 10:59 AM C DT Body Mass Index 43.34 03/13/2025 10:59 AM CDT Plan of Treatment Health Maintenance Due Date Last Done Comments Breast Cancer Screening-Mammogram 01/24/2021 01/25/2020, 01/25/2020, 12/22/2018, Additional history exists Well Visit 65+ 07/20/2023 07/20/2022 Fall Risk Assessment 01/21/2024 01/20/2023, 07/20/2022, 04/12/2019 Osteoporosis Screening-Bone Density Scan 03/03/2024 03/03/2022 Hemoglobin A1C 12/27/2024 06/29/2024, 05/29, 03/13/2024, Additional history exists Covid-19 Vaccine ( season) 2025 07/19/2022, 06/18/2021, 09/15/2020, Additional history exists Zoster Vaccine (2 of [...] Completed 07/20/2022 Hepatitis B Screening Completed 06/29/2024 Influenza Vaccine Completed 03/13/2025, , 04/06/2023, Additional history exists Procedures Procedure Name Priority Date/Time Associated Diagnosis Comments CHEST, ABDOMEN, NECK AND PELVIS COMPUTERIZED TOMOGRAPHY (CT) WITHOUT THEN WITH CONTRAST Schedule Routine, Read Routine (OP Routine) 02/06/2025 3:01 PM CDT COMPREHENSIVE METABOLIC PANEL Routine 06/29/2024 9:21 AM GOLF CLUB ASSEMBLER Type 2 diabetes mellitus with hyperglycemia, unspecified whether termite exterminator helper insulin use (HCC) HEMOGLOBIN A1C Routine 06/29/2024 9:21 AM GOLF CLUB ASSEMBLER Type 2 diabetes mellitus with hyperglycemia, unspecified whether termite exterminator helper insulin use (HCC) LIPID PANEL Routine 06/29/2024 9:21 AM GOLF CLUB ASSEMBLER Mixed hyperlipidemia ALBUMIN CREATININE RATIO, URINE Routine 06/29/2024 9:21 AM GOLF CLUB ASSEMBLER Type 2 diabetes mellitus with hyperglycemia, unspecified whether mcfp insulin use (HCC) RETINAVUE SCANNER - OU - BOTH EYES Routine 04/18/2024 Type 2 diabetes mellitus with hyperglycemia, unspecified whether mcfp insulin use (HCC) DEXA AXIAL SKELETON BONE DENSITY 1 OR MORE SITES Schedule Routine, Read Routine (OP Routine) 03/03/2022 SCREENING MAMMOGRAM 2D BILATERAL Schedule Routine, Read Routine (OP Routine) 01/25/2020 HEPATITIS C ANTIBODY Routine 04/12/2019 1:33 PM CDT Encounter for hepatitis C screening test for low risk patient COLONOSCOPY Routine 07/05/2016 1:12 PM GOLF CLUB ASSEMBLER COLONOSCOPY Routine 07/05/2016 from Last 3 Months or Most Recently Relevant to Health Maintenance Results * CHEST, ABDOMEN, NECK AND PELVIS COMPUTERIZED TOMOGRAPHY (CT) WITHOUT THEN WITH CONTRAST (53:01 PM CDT) Anatomical Region Laterality Modality N/A Computed Tomogra phy us Historical Provider MD MUNOZ CT PROCEDURES Final R esult * Albumin Creatinine Ratio, Urine (06/29/2024 9:21 AM GOLF CLUB ASSEMBLER) Creatinine, ur 118 20 - 275 mg/dL [...] a diagnostic category. Urine 06/29/2024 9:21 AM GOLF CLUB ASSEMBLER 06/29/2024 9:21 AM GOLF CLUB ASSEMBLER Narrative [facility] - 06/30/2024 5:11 AM GOLF CLUB ASSEMBLER FASTING:YES FASTING: YES Savana Sanchez NP LAB URINE ORDERABLES Final Re sult Performing Organization Address [facility]/ZIP Co de Phone Number [facility] [address] [place] [address] * (ABNORMAL) Hemoglobin A1c (06/29/2024 9:21 AM GOLF CLUB ASSEMBLER) Hgb A1C 7.2(H) <5.7 % of total Hgb [facility] Comment: For someone without known [...] diabetes for children. Blood 06/29/2024 9:21 AM GOLF CLUB ASSEMBLER 06/29/2024 9:21 AM GOLF CLUB ASSEMBLER Narrative [facility] - 06/30/2024 5:11 AM GOLF CLUB ASSEMBLER FASTING:YES FASTING: YES Savana Sanchez NP LAB BLOOD ORDERABLES Final Re sult Performing Organization Address City/[facility]/ZIP Co de Phone Number [facility] [address] [address] [place] [address] * (ABNORMAL) Lipid panel (06/29/2024 9:21 AM GOLF CLUB ASSEMBLER) Cholesterol 158 <200 mg/dL [facility] [...] LDL-C. Bandar SS et al. LEIGH. 2013;310(19): 4395-2880 (http://education.[employer]/faq/PJB599) Chol/HDL ratio 3.2 <5.0 (calc) [facility] Non-HDL, (LDL+VLDL) 108 <130 mg/dL (calc) [facility] Comment: For patients with diabetes plus 1 major ASCVD risk factor, treating to a non-HDL-C goal of <100 mg/dL (LDL-C of <70 mg/dL) is considered a therapeutic option. Blood 06/29/2024 9:21 AM GOLF CLUB ASSEMBLER 06/29/2024 9:21 AM GOLF CLUB ASSEMBLER Narrative [facility] - 06/30/2024 5:11 AM GOLF CLUB ASSEMBLER FASTING:YES FASTING: YES Savana Sanchez REGIONAL ECONOMIST LAB BLOOD ORDERABLES Final Re sult [facility] [address] [facility] [place] [address] * (ABNORMAL) Comprehensive metabolic panel (06/29/2024 9:21 AM GOLF CLUB ASSEMBLER) Glucose 167(H) 65 - 99 mg/dL [facility] [...] [facility] Blood 06/29/2024 9:21 AM GOLF CLUB ASSEMBLER 06/29/2024 9:21 AM GOLF CLUB ASSEMBLER Narrative [facility] - 06/30/2024 5:11 AM GOLF CLUB ASSEMBLER FASTING:YES FASTING: YES us Savana Sanchez REGIONAL ECONOMIST LAB BLOOD ORDERABLES Final Re sult [facility] [address] [place] [phone] * RetinaVue Scanner - OU - Both Eyes (04/18/2024) Anatomical Region Laterality Modality Head Fundus Photograp hy Retina 04/18/2024 Savana Sanchez REGIONAL ECONOMIST OPHTH PHOTOGRAPHY Final Resul t * Dexa [...] Hep C Ab Negative Negative KAYLA GALLAGHER ([place]) Comment:Testing performed by : [facility], [address] [place] [address]., [id number] Blood specimen (specimen) 04/12/2019 1:33 PM CDT 04/13/2019 9:46 AM CDT Result [facility] Zahida Leahy NP LAB MICROBIOLOGY - GENERAL OR DERABLES Final Result Performing Organization Address City/State/[facility] Co de Phone Number KAYLA GALLAGHER ([place]) [address] [place] [address] * COLONOSCOPY (07/05/2016 1:12 PM GOLF CLUB ASSEMBLER) Historical Provider HEALTH MAINTENANCE Final Result * COLONOSCOPY (07/05/2016) Colonoscopy Unknown Result [facility] Historical Provider HEALTH MAINTENANCE Final Result from Last 3 Months or Most Recently Relevant to Health Maintenance Insurance [employer]IG[employer] BLUE [facility] AETNA MEDICARE GOLD Care Teams Advertising Account Manager Relationship Specialty Start Date End Date Savana Sanchez NP [address] [place], [place] [id number] PCP - General Home And Family Living Professor 10/05/23
--- OUTSIDE RECORDS SUMMARY | 2025-04-10 07:33 | XMS_ITS | Clinical Summary ---
Author Organization [facility] Address [address] [place] [address] Phone Care Team Providers Care Automatic Mounter Name Role Phone Zahida Leahy APRN, CORE BLOWER OPERATOR Primary Care Provider Allergies No known active [...] Zoster Immunization (2 of 2) 09/14/2022 07/20/2022 Mammogram 11/21/2024 11/22/2023, 12/27, 12/16/2017, Additional history exists Influenza Immunization (#1) 02/25/202503/28, 04/06/2023, 04/19/2022, Additional history exists SARS-COV-2 Immunization ( season) 2025 07/19/2022, 06/18/2021, 09/15/2020, Additional history exists Pneumococcal [...] complete this topic Insurance [employer] Care Teams Automatic Mounter Relationship Specialty Start Date End Date Zahida Leahy, LOCAL DRIVER, CORE BLOWER OPERATOR [address] [place] [address] [address] [place] [id number] PCP - General Advanced Practice Nurse 12/21/17
[2025-04-10 07:54] LABS: Estimated Glomerular Filt Rate 30
== END 2025-04-10 07:30 | disposition home or self-care (01) ==
PROVIDERS: PCP Nurse Practitioner; Visit Provider Internal Medicine Hematology & Oncology
DX: C18.0 Malignant neoplasm of cecum (principal); K76.89 Other specified diseases of liver; K74.69 Other cirrhosis of liver
CPT/HCPCS: 71260; 74177; Q9967

== ENCOUNTER 2025-04-25 07:29 | Outpatient (CLI) | payer MEDICARE, SELFPAY ==
--- OUTSIDE RECORDS SUMMARY | 2025-04-24 14:30 | XMS_ITS | Encounter Summary ---
Author Organization [facility] Healthcare Address [address] [place] [address] Care Team Providers Care Kitchen Clerk Name Role Phone Savana Sanchez NP Primary Care Provider [phone] Reason for Referral * Procedure (Routine) - Authorized Specialty Diagnoses / Procedures Referred By Herb t Referred To Contact Diagnoses Impacted cerumen of right ear Procedures Ear Cerumen Removal Sandra Atkins NP [address] [place] [address] Phone: tel: fax: [facility] Medical Group Referral ID Status Reason Start Date Expiration Date V isits Requested Visits Authorized [id number] Authorized 04/24/2025 05/24/2026 1 1 Reason for Visit * Reason Comments Sore Throat Sore throat, sinus c ongestion/drainage, cough with production and right ear pain, sx's started a couple of days ago, otc mucinex. Encounter Details Date Type Department Care Team ([facility] Contact Info) Description 04/24/2025 2:30 PM CDT Office Visit [facility] Medical Group [facility] [place] [address] [place] [address] Sandra Atkins NP [address] [place] [address] Non-recurrent acute suppurative otitis media of right ear without spontaneous rupture of tympanic membrane (Primary Dx); Viral URI with cough; Impacted cerumen of right ear Social History Tobacco Use Types Packs/Day Years Used Date Smoking Tobacco: Never Smokeless Tobacco: Never Alcohol Use Standard Drinks/Week Comments Never 0 (1 standard drink = 0.6 oz pur e alcohol) PHQ-2 Answer Date Recorded PHQ-2 Total Score (If total score is 3 or more points, staff should administer the PHQ-9) 0 04/15/2025 AUDIT-C Answer Date Recorded Q1: How often [...] on file 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 Gender Identity Not on file Sexual Orientation Not on file documented as of this encounter Last Filed Vital Signs Vital Sign Reading Time Taken Comments Blood Pressure 126/70 04/24/2025 2:23 PM CDT Pulse 76 04/24/2025 2:23 PM CDT Temperature 36.3 C (97.4 F) 04/24/2025 2:23 PM CDT Respiratory Rate 18 04/24/2025 2:23 PM CDT Oxygen Saturation 97% 04/24/2025 2:23 PM CDT Inhaled Oxygen Concentration - - Weight 101.2 kg (223 lb) 04/24/2025 2:23 PM CDT Height 157.5 cm (5' 2) 04/24/2025 2:23 PM CDT Body Mass Index 40.79 04/24/2025 2:23 PM CDT documented in this encounter Patient Instructions * Patient Instructions* Sandra Atkins NP - 04/24/2025 2:30 PM CDT Images from the original note were not included. Thank you for allowing me to take care of you today. Diagnosis viral upper respiratory infection with a cough, right otitis media, and right cerumen impaction. Test: Rapid strep, COVID, influenza tests are negative. Prescribed azithromycin 2 tablets on day 1 1 tablet days 2 through 5. Home care: Upper respiratory infection:You have an upper respiratory infection with is viral. It is the commoncold. Treatment is supportive over the counter therapy. You may use Tylenol or Motrin for pain or fever. You can use a cough expectorant like Mucinex if you have chest congestion with thick mucus. Benadryl/ Zyrtec can be used to dry up a runny nose, and sudafed can help with nasal congestion. A humidifier may provide some relief. Cold medications like Dayquil and Nyquil can help. Drink plenty of fluids and stay hydrated. Get plenty of rest. Otitis media:You can take tylenol or motrin as directed for pain or fever. Complete your antibiotics as directed. You can use warm moist heat to decrease pain. Follow up with PCP if you are not getting better in 3 days. Cerumen impaction:You had your ears flushed out today. You may still need to soften the was in your ears. You may use hydrogen peroxide and mineral oil or otc Debrox drops. Instill it in your ear and canal and let sit for 15 minutes. Do both ears. You can do this multipletimes a week and even prophylactically. Do not use Q-tips in your ears. This only pushes the wax down into your ear canal. If you need a primary provider please stop at the hotel front desk clerk for information. Red flags include worsening symptoms including pain, swelling, headache, dizziness, congestion, fever, shortness of breath, chest pain, nausea/vomiting, abdomen pain, back pain, muscle pain, decreased range of motion, numbness/tingling, weakness, fatigue. Follow up with your primary provider, this clinic, or if severe go to ER. If you have no improvement or worsening of your symptoms, please follow up with your Primary Care Provider, [facility] and or Emergency Room. I strive to provide you with EXCELLENT service. You may receive a survey after your visit today. If you cannot rate your experience as EXCELLENT, please let us know how we can improve and better meet your needs. Thank you for choosing [facility]! It was my pleasure to see you today, I hope you feel better soon! Sandra Atkins NP * Attachments The following attachments cannot be sent through Care Everywhere. * Upper Respiratory Infection (Toll Ticket Clerk) (Yemeni) * Ear Infection (Toll Ticket Clerk) ([place]emeni) * Earwax Blockage (Toll Ticket Clerk) ([place]i) documented in this encounter Ordered Prescriptions Prescription Sig Dispense Quantity Refills Last Filled Start Date End Date azithromycin (ZITHROMAX) 250 mg tabletIndications:N on-recurrent acute suppurative otitis media of right ear without spontaneous rupture of tympanic membrane Take 2 tabs (500 mg) by mouth today, than 1 tab (250 mg) daily for 4 days. 6 tablet 04/24/2025 04/29/2025 documented in this encounter Progress Notes * Sandra Atkins NP - 04/24/2025 2:30 PM CDTAssociated Order(s): Ear Cerumen Removal Images from the original note were not included. Subjective/Objective This patient has verbally consented to recording this visit in order to utilize AI technology in generating this note. Patient ID: Laly Kincaid is a 70 y.o. female. Chief Complaint Sore Throat (Sore throat, sinus congestion/drainage, cough with production and right ear pain, sx'sstarted a couple of days ago, otc mucinex.) HPI History of Present Illness Laly Kincaid is a 70 year old female with a history of breast and colon cancer who presents withright ear pain and mucus production. She has been experiencing right ear pain and has been coughing up mucus since Tuesday. She has been using mucinex and ear drop oil with a cotton ball in the ear, but symptoms have not improved. There is no drainage from the ear except for the drops she applied. She also has a headache and nasal drainage, which she feels may be contributing to throat irritation. She almost has to sit up to sleep atnight due to coughing and mucus. No fever, chills, dizziness, or shortness of breath. She has a history of breast cancer diagnosed in 2007, colon cancer in 2014, and colon cancer with liver involvement in 2020. She is currently undergoing chemotherapy and experiences diarrhea, which she attributes to the treatment. She feels very sick for about a week after each treatment, followed by two weeks of feeling better. She mentions wearing a chemotherapy pack that exacerbates her symptoms. Review of Systems Constitutional: Positive for fatigue. Negative for chills and fever. HENT: Positive for congestion, ear pain (right ear), postnasal drip and rhinorrhea. Respiratory: Positive for cough. Neurological: Positive for headaches. Psychiatric/Behavioral: Positive for sleep disturbance. All other systems reviewed and are negative. Physical Exam Vitals and nursing note reviewed. Constitutional: Appearance: Normal appearance. She is well-developed. HENT: Head: Normocephalic and atraumatic. Right Ear: External ear normal. There is impacted cerumen. Left Ear: External ear normal. Left ear middle ear effusion: mild. Tympanic membrane is injected. Nose: Nose normal. Mouth/Throat: Mouth: Mucous membranes are moist. Pharynx: Oropharynx is clear. Posterior oropharyngeal erythema present. Tonsils: 0 on the right. 0 on the left. Eyes: Conjunctiva/sclera: Conjunctivae normal. Cardiovascular: Rate and Rhythm: Normal rate and regular rhythm. Heart sounds: Murmur heard. Pulmonary: Effort: Pulmonary effort is normal. Breath sounds: Normal breath sounds. Musculoskeletal: General: Normal range of motion. Skin: General: Skin is warm and dry. Capillary Refill: Capillary refill takes less than 2 seconds. Neurological: General: No focal deficit present. Mental Status: She is alert and oriented to person, place, and time. Vitals: 04/24/25 1423 BP: 126/70 Pulse: 76 Resp: 18 Temp: 36.3 ??C (97.4 ??F) TempSrc: Temporal SpO2: 97% Weight: 101.2 kg (223 lb) Height: 157.5 cm (5' 2) Assessment & Plan Non-recurrent acute suppurative otitis media of right ear without spontaneous rupture of tympanic membrane 04/15/2025 EGFR 30 start azithromycin tylenol/motrin for fever/pain, use as directed Warm compress to ear for pain control as needed. ED presentation with one or more of the following symptoms: fever uncontrolled with antipyretics, shortness of breath, chest discomfort, uncontrolled n/v/d f/u after completion of abx for ear re-check f/u with PCP in 3-5 days if symptoms do not improve/worsen Orders: azithromycin (ZITHROMAX) 250 mg tablet; Take 2 tabs (500 mg) by mouth today, than 1 tab (250 mg) daily for 4 days. Viral URI with cough likely viral exam findings warrant no antibiotics, antiviral, or steroid at this time [id number] antihistamine such as Claritin or Zyrtec will aid in alleviation of symptoms such as nasal drainage and sinus drainage. Benadryl can be sedating, I suggest using it at bedtime. Nasal spray, such as Flonase may also aid in nasal congestion. This may also be purchased over the counter. strep/COVID/FLU swab negative today ED presentation with one or more of the following symptoms: fever uncontrolled with antipyretics, shortness of breath, chest discomfort, uncontrolled n/v/d f/u with PCP in 5-7 days if symptoms do not improve/worsen Orders: POC Influenza A/B, COVID-19 antigen POCT rapid strep A Impacted cerumen of right ear Cerumen completely irrigated from right ear revealing TM that was dull and erythematous Orders: Ear Cerumen Removal Ear Cerumen Removal Performed by: Sandra Atkins NP Authorized by: Sandra Atkins NP Consent Given by: Patient Site marked: the procedure site was marked Timeout: prior to procedure the correct patient, procedure, and site was verified Verbal consent obtained: Yes Risks, alternatives, and patient questions discussed: Yes Preparation: Patient was prepped using a clean technique Location: R ear R ear cerumen impacted?: Yes R ear method of removal: Instrumentation R ear instrumentation: Curette R ear magnification: Otoscope Inspection: TM intact (TM dull and erythematous) Hearing quality: Normal Patient tolerance: Patient tolerated the procedure well with no immediate complications Assessment & Plan Metastatic colon cancer with liver involvement Undergoing continuous chemotherapy. Significant emotional distress noted. - Continue chemotherapy regimen. Acute diarrhea and fatigue secondary to chemotherapy Symptoms consistent with chemotherapy side effects. Cough with postnasal drainage Likely due to postnasal drip. No shortness of breath. Right ear cerumen impaction Causing discomfort, possibly contributing to ear pain. - Clean right ear to remove cerumen impaction. Acute headache Recent Results (from the past 4 hours) POCT rapid strep A Collection Time: 04/24/25 2:44 PM Result Value Ref Range Rapid Strep A, POC Negative Negative POC Influenza A/B, COVID-19 antigen Collection Time: 04/24/25 2:47 PM Result Value Ref Range Influenza A Ag, POC Negative Negative Influenza B Ag, POC Negative Negative COVID-19 Ag POC Presumptive Negative Presumptive Negative, Invalid Disposition Treatment plan including expectations, follow up, and return precautions discussed with patient/parent, verbalizes understanding. Medication dosage, use, and potential adverse reactions discussed with patient/parent. Advised to follow up with PCP if symptoms do not resolve as expected or sooner if condition worsens. Signs/symptoms warranting ER evaluation reviewed. Patient and/or guardian was given an opportunity to ask questions, questions answered. Patient Education Sandra Atkins NP 04/24/2025 documented in this encounter Plan of Treatment Not on file documented as of this encounter Procedures Procedure Name Priority Date/Time Associated Diagnosis Comments POC INFLUENZA A/B, COVID-19 ANTIGEN Routine 04/24/2025 2:47 PM CDT Viral URI with cough POCT RAPID STREP Routine 04/24/2025 2:44 PM CDT Viral URI with cough UT REMOVAL IMPACTED CERUMEN INSTRUMENTATION UNILAT Routine 04/24/2025 2:30 PM CDT Impacted cerumen of right ear documented in this encounter Results * POC Influenza A/B, COVID-19 antigen (04/24/2025 2:47 PM CDT) Influenza A Ag, POC Negative Negative [facility] Influenza B Ag, POC Negative Negative [facility] COVID-19 Ag POC Presumptive Negative Presumptive Negative, Invalid [facility] Nasal 04/24/2025 2:47 PM CDT Sandra Atkins NP POINT OF CARE TEST ORDERABLES Final Result [facility] [address] [place] [address], [facility] * POCT rapid strep A (04/24/2025 2:44 PM CDT) Rapid Strep A, POC Negative Negative Swab 04/24/2025 2:44 PM CDT Sandra Atkins HERITAGE CONSULTANT POINT OF CARE TEST ORDERABLES Final Result * UT REMOVAL IMPACTED CERUMEN INSTRUMENTATION UNILAT (04/24/2025 2:30 PM CDT) Narrative Sandra Atkins NP - 04/24/2025 2:30 PM CDT Sandra Atkins NP 04/24/2025 3:24 PM Ear Cerumen Removal Performed by: Sandra Atkins NP Authorized by: Sandra Atkins NP Consent Given by: Patient Site marked: the procedure site was marked Timeout: prior to procedure the correct patient, procedure, and site was verified Verbal consent obtained: Yes Risks, alternatives, and patient questions discussed: Yes Preparation: Patient was prepped using a clean technique Location: R ear R ear cerumen impacted?: Yes R ear method of removal: Instrumentation R ear instrumentation: Curette R ear magnification: Otoscope Inspection: TM intact (TM dull and erythematous) Hearing quality: Normal Patient tolerance: Patient tolerated the procedure well with no immediate complications Sandra Atkins HERITAGE CONSULTANT IN CLINIC/BEDSIDE ORDERABLES Final Result documented in this encounter Visit Diagnoses Diagnosis Non-recurrent acute suppurative otitis media of right ear without spontaneous rupture of tympanic membrane- Primary Viral URI with cough Impacted cerumen of right ear Impacted cerumen documented in this encounter Historical Medications * This list may reflect changes made after this encounter. cholecalciferol (VITAMIN D-3) 50,000 unit capsule Take 1 capsule (50,000 Units total) by mouth once a week added in this encounter Additional Health Concerns Infection Onset Date Last Indicated Resolved Time COVID: Suspected 04/24/2025 04/24/2025 04/24/2025 2:48 PM CDT documented as of this encounter Care Teams Kitchen Clerk Relationship Specialty Start Date End Date Laura, Savana L., HERITAGE CONSULTANT [address] [facility] [address] [place] [address] PCP - General Can Capper 10/05/23 documented as of this encounter
--- NOTE | ~2025-04-25 | NM_ITS ---
EXAMINATION: NM kina stress w perfusion DATE: 04/25/2025 11:21 INDICATION: Other forms of dyspnea. TECHNIQUE: Rest images were obtained following intravenous administration of 10 mCi Tc99m tetrofosmin (Myoview). The patient was infused intravenously with Lexiscan (regadenoson). Then, 33.2 mCi Tc99m tetrofosmin (Myoview) was administered intravenously, and stress images were obtained. Data was recons tructed into short axis and horizontal and vertical long axis SPECT images. Gated SPECT images were also obtained. COMPARISON: None. FINDINGS: There is no definite reversible or fixed perfusion abnormality to suggest ischemia or infarction. There is no segmental wall motion abnormality. Left ventricular ejection fraction measures >70%. IMPRESSION: 1. No definite ischemia or infarct. 2. Normal left ventricular ejection fraction measuring >70%. Reviewed, dictated and finalized at location E.
--- OUTSIDE RECORDS SUMMARY | 2025-04-25 07:39 | XMS_ITS | Clinical Summary ---
Author Organization [facility] Building [address] Address [address] [place] [address] Care Team Providers Care Hydro Mechanic Name Role Phone Savana Sanchez NP Primary Care Provider [phone] Allergies No known active allergies Medications loratadine (CLARITIN) 10 mg tablet take 1 tablet by oral route every day 0 0 01/08/20 14 Active diphenoxylate-atro pine (LOMOTIL) 2.5-0.025 mg per tablet Take 1 tablet by mouth every 6 hours as needed 02/18/20 16 Active gabapentin (NEURONTIN) 600 mg tablet 03/11/20 21 Active potassium chloride ER (KLOR-CON) 20 mEq CR tablet Take 1 tablet (20 mEq total) by mouth daily 09/03/19 22 Active ondansetron (ZOFRAN) 8 mg tablet 08/28/19 23 Active atorvastatin (LIPITOR) 10 mg tablet Take 1 tablet (10 mg total) by mouth daily 90 tablet 3 01/21/20 23 Active fluticasone propionate (FLONASE) 50 mcg/actuation nasal sprayIndications:A cute effusion of right ear Administer 2 sprays into each nostril daily 16 g 05/13/20 23 Active Jardiance 25 mg tablet Take 1 tablet (25 mg total) by mouth daily 30 tablet 5 04/16/20 24 Active benazepriL (LOTENSIN) 40 mg tablet Take 1 tablet (40 mg total) by mouth daily 90 tablet 3 04/18/20 24 Active citalopram (CeleXA) 40 mg tablet Take 1 tablet (40 mg total) by mouth daily 90 tablet 3 04/18/20 24 Active mecobalamin (B12 ACTIVE ORAL) Take by mouth Act gianna ferrous sulfate (IRON ORAL) Take by mouth Acti ve clonazePAM (KlonoPIN) 0.5 mg tablet Take 1 tablet (0.5 mg total) by mouth 2 (two) times a day as needed for anxiety 60 tablet 1 03/13/20 25 Active triamterene-hydroC HLOROthiazide 37.5-25 mg per tablet/capsule Take 1 tablet/capsule by mouth daily 90 tablet 3 03/13/20 25 026 Active ergocalciferol (VITAMIN D) 50,000 unit capsule Take 1 capsule (50,000 Units total) by mouth once a week 12 capsule 3 04/16/20 25 026 Active levothyroxine (SYNTHROID) 25 mcg tabletIndications: Primary hypothyroidism Take 1 tablet (25 mcg total) by mouth daily Take 225mcg daily 30 tablet 11 04/16/20 25 026 Active levothyroxine (SYNTHROID) 200 mcg tabletIndications: Primary hypothyroidism Take 1 tablet (200 mcg total) by mouth head of drama before breakfast Take 225mcg daily 30 tablet 11 04/16/20 25 Active Januvia 50 mg tabletIndications: type 2 diabetes mellitus Take 1 tablet (50 mg total) by mouth daily 30 tablet 11 04/16/20 25 026 Active cholecalciferol (VITAMIN D-3) 50,000 unit capsule Take 1 capsule (50,000 Units total) by mouth once a week Active azithromycin (ZITHROMAX) 250 mg tabletIndications: Non-recurrent acute suppurative otitis media of right ear without spontaneous rupture of tympanic membrane Take 2 tabs (500 mg) by mouth today, than 1 tab (250 mg) daily for 4 days. 6 tablet 04/24/20 25 025 Active levothyroxine (SYNTHROID) 200 mcg tablet Take 1 tablet (200 mcg total) by mouth head of drama before breakfast 30 tablet 1 03/18/20 25 025 Discontin ued(Reord er) Active Problems Problem Noted Date Diagnosed Date Screening for AAA (abdominal aortic aneurysm) Assessment & Plan (04/15/2025 5:42 PM CDT): Orders: US Abdominal Aortic Aneurysm Screening; Future Encounter for Medicare annual wellness exam 03/27 Assessment & Plan (04/15/2025 5:42 PM CDT): Annual Medicare wellness exam completed today. All questionnaires completed and reviewed with patient. No Concerns. Pedal edema 03/14/2025 Assessment & Plan (03/14/2025 12:01 PM CDT): Finger fracture, right 03/13/2025 Fracture of wrist 03/13/2025 Metastatic colon cancer to liver 03/13/2025 Assessment & Plan (04/15/2025 5:42 PM CDT): As above Periorbital ecchymosis of right eye 03/13/2025 Screening [...] mellitus with hyperglycemia 02/25 Assessment & Plan (04/15/2025 5:42 PM CDT): Orders: Albumin Creatinine Ratio, Urine; Future Hemoglobin A1c; Future CBC with auto differential; Future Comprehensive metabolic panel; Future Assessment & Plan (03/14/2025 12:01 PM CDT): Orders: Hemoglobin A1c; Future Assessment & Plan (04/19/2024 7:39 AM CDT): Now followed by endocrinology. Retina scan in office today. Morbid (severe) obesity due to excess calories 0 10/05/2023 Body mass index 40.0-44.9, adult ([facility]) 10/04 Acute non-recurrent maxillary sinusitis 10/05/19 Assessment & Plan (10/05/2023 4:07 PM CDT): Start on cephalexin 500 mg b.i.d. times 10 days. Continue Flonase daily and can resume Claritin. Saline nasal spray/rinse as discussed Anxiety 10/05/2023 Assessment & Plan (04/15/2025 5:42 PM CDT): Assessment & Plan (03/14/2025 12:01 PM CDT): [...] 07/21/2022 Assessment & Plan (07/21/2022 4:19 PM SYSTEM ADMINISTRATION MANAGER): Patient Counseling: --Nutrition: Stressed importance of moderation [...] pending. Ordered today, reviewed previous labs from [facility] in care everywhere Major depressive disorder, recurrent, mild 06/03 Assessment & Plan (04/15/2025 5:42 PM CDT): Assessment & Plan (03/14/2025 12:01 PM CDT): Assessment & Plan (10/05/2023 4:06 PM CDT): Stable. Continue citalopram 40 mg daily Assessment & Plan (01/20/2023 8:59 PM CDT): Stable on citalopram and clonazepam prn. I checked their [place] QUARRY BOSS sheet, and it was consistent with prescribed medications. F/u 6 months Assessment & Plan (07/21/2022 4:19 PM SYSTEM ADMINISTRATION MANAGER): Stable. Overall doing well. Using clonazepam about once a day. Will continue current medications and have her follow-up in 6 months Assessment & Plan (12/02/2021 2:34 PM CDT): Stable on citalopram 40mg daily. Uses clonazepam sparingly prn. Mostly in evenings. I checked their [place] QUARRY BOSS sheet, and it was consistent with prescribed medications. F/u 6 months Assessment & Plan (06/03/2021 1:45 PM SYSTEM ADMINISTRATION MANAGER): Stable on current medication. Continue citalopram as ordered. Uses clonazepam sparingly. Renal given. May follow up in 6 months. I checked their [place] QUARRY BOSS sheet, and it was consistent with prescribed medications. Vitamin D deficiency 01/31/2020 Assessment & Plan (04/15/2025 5:42 PM CDT): Orders: Vitamin D 25 hydroxy; Future Assessment & Plan (03/14/2025 12:01 PM CDT): Assessment & Plan (10/05/2023 4:06 PM CDT): Vitamin-D level ordered Assessment & Plan (12/02/2020 1:51 PM CDT): Being managed by endocrinology and oncology now. Patient is taking vitamin-D supplements daily Assessment & Plan (08/04/2020 1:20 PM SYSTEM ADMINISTRATION MANAGER): Patient has not been taking her vitamin [...] food. Mixed hyperlipidemia 10/12/2018 Assessment & Plan (04/15/2025 5:42 PM CDT): Orders: Lipid panel; Future Assessment & Plan (03/14/2025 12:01 PM CDT): Orders: Lipid panel; Future Assessment & Plan (10/05/2023 4:05 PM CDT): Continue atorvastatin 10 mg at HS and to limit fats in diet. Lipid panel ordered. Assessment & Plan (01/20/2023 8:58 PM CDT): Lipid abnormalities are stable, reviewed previous lipid levels in [place]. Pharmacotherapy as ordered. Order for lipid panel was given today to be obtained. Pt voiced understanding of lab drawn and continuation of current medication regimen. Assessment & Plan (07/21/2022 4:17 PM SYSTEM ADMINISTRATION MANAGER): Lipid abnormalities are stable, reviewed previous lipid levels in [place]. Pharmacotherapy as ordered. Order for lipid panel was given today to be obtained. Pt voiced understanding of lab drawn and continuation of current medication regimen. Assessment & Plan (12/02/2021 2:33 PM CDT): Stable. Medications renewed. Lipid panel ordered. F/u 6 months Assessment & Plan (06/03/2021 1:46 PM SYSTEM ADMINISTRATION MANAGER): Lipid abnormalities are stable, reviewed previous lipid levels in [place]. Pharmacotherapy as ordered. Assessment & Plan (12/02/2020 1:50 PM CDT): Lipid abnormalities are stable, reviewed previous lipid levels in [place]. Pharmacotherapy as ordered. Order for lipid panel was given today to be obtained. Pt voiced understanding of lab drawn and continuation of current medication regimen. Assessment & Plan (06/03/2020 3:22 PM SYSTEM ADMINISTRATION MANAGER): Lipid abnormalities are stable. Pharmacotherapy as ordered. [...] oncologist: Primary care physician: Dr. Shweta Zaman FIBERGLASS AUTO BODY REPAIRER: ? Communications Project Manager: ? Palliative care physician: Nurse Navigator: Advanced Practice Nurse: Terry Colin CONSTRUCTION AND MAINTENANCE INSPECTOR Other care team providers: TREATMENT SUMMARY Cancer type/location/histology subtype: Adenocarcinoma of the colon Diagnosis date: 12/09/14 Stage: I II III IV Not Applicable Oncotype results if performed: Tumor testing results if performed: EGFR results if performed: Surgery: Yes No Surgery Date: Surgical procedures/location/findings: Systemic therapy (chemotherapy/hormonal therapy/other): Names of agents used: End Date: Clinical trial: Yes [place] of trial: Drugs given and date completed: [...] other tests as indicated on each visit. STUDENT OFFICER: As needed. * Testing as indicated. Please continue to see your primary care provider/SUBSTATION DESIGN DRAFTSPERSON for all general health care recommended for a female your age. Possible late and/or intermediate card tender effects that someone with this type of [...] cancer coming back. OTHER COMMENTS REFERRALS [facility] Integrative Therapy [facility] Services Other (Specify): ADDITIONAL RESOURCES Patients may have many questions and concerns after their cancer treatment ends. A list of local resources as provided below to assist you. [facility] cancer information center: [place] [employer] Society (ACS): www.acs.org National Cancer [place] (NCI): www.cancer.gov [place] Society of clinical oncology (ASCO): www.cancer.net Komen: www.komen.org Livestrong: www.Anesthesia Medical Grou[employer]ron[employer]oir Systems Radiation therapy: www.rtanswers.org Patient signature: CONSTRUCTION AND MAINTENANCE INSPECTOR signature: Date delivered on: 60 minutes of [...] oncologist: Primary care physician: Dr. Shweta Zaman FIBERGLASS AUTO BODY REPAIRER: ? Communications Project Manager: ? Palliative care physician: Nurse Navigator: [...] End Date: Clinical trial: [] Yes [] [place] of trial: Drugs given and date completed: [...] other tests as indicated on each visit. STUDENT OFFICER: As needed. * Testing as indicated. Please continue to see your primary care provider/SUBSTATION DESIGN DRAFTSPERSON for all general health care recommended for a female your age. Possible late and/or intermediate card tender effects that someone with this type of [...] back. OTHER COMMENTS REFERRALS [] Star [] [facility] Integrative Therapy [] [facility] Pastoral Services [] Other (Specify): ADDITIONAL RESOURCES Patients may have many questions and concerns after their cancer treatment ends. A list of local resources as provided below to assist you. [facility] cancer information center: [place] Cancer Society (ACS): www.acs.org National Cancer [place] (NCI): www.cancer.gov [place] Society of clinical oncology (ASCO): www.cancer.net Komen: www.[employer] Livestrong: www.ReDoc Software Radiation therapy: www.rtanswers.org Patient signature: CONSTRUCTION AND MAINTENANCE INSPECTOR signature: Date delivered on: 60 minutes of time were spent delivering this cancer treatment summary and survivorship plan. Assessment & Plan (04/15/2025 5:42 PM CDT): Currently on maintenance dosing of her chemotherapy. Most recent CT showing interval increase in size of masses despite her chemotherapy. Being followed by Oncology. Assessment & Plan (06/03/2021 1:39 PM SYSTEM ADMINISTRATION MANAGER): Managed by Oncology at [facility]. 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 Not [...] needed Assessment & Plan (08/28/2021 1:18 PM SYSTEM ADMINISTRATION MANAGER): Diagnosed at the age of 22. She [...] needed Assessment & Plan (06/03/2021 1:38 PM SYSTEM ADMINISTRATION MANAGER): Managed by endocrinologyValentine Pace. Assessment & Plan [...] . Assessment & Plan (08/04/2020 1:19 PM SYSTEM ADMINISTRATION MANAGER): Diagnosed at the age of 22. She [...] Rivera Assessment & Plan (05/30/2017 8:06 PM SYSTEM ADMINISTRATION MANAGER): TSH is still low. Will refer to endo. Assessment & Plan (03/17/2017 7:39 AM CDT): Her TSH was low. She was on 400mcg synthroid. Will decrease to 350mcg of synthroid. F/u 6-8 weeks with repeat TSH Essential hypertension 01/04/2014 Overview (10/01/2016): Essential hypertension Assessment & Plan (04/15/2025 5:42 PM CDT): Assessment & Plan (03/14/2025 12:01 PM CDT): [...] hydrochlorothiazide. Assessment & Plan (07/21/2022 4:17 PM SYSTEM ADMINISTRATION MANAGER): Stable/ Improved. Blood pressure is adequately controlled on current medication. We will not make any medication changes today. Will have her follow-up in 6 months for continued monitoring and management Assessment & Plan (12/02/2021 2:33 PM CDT): Improved/ stable. Continue current medications. F/u 6 months Assessment & Plan (06/03/2021 1:46 PM SYSTEM ADMINISTRATION MANAGER): Stable/ Improved. Blood pressure is adequately controlled [...] re-evaluation Assessment & Plan (06/03/2020 3:22 PM SYSTEM ADMINISTRATION MANAGER): Blood pressure is adequately controlled on current [...] neoplasm 11/10/2013 Overview (09/30/2016): BREAST NEOPLASM NOS Assessment & Plan (04/15/2025 5:42 PM CDT): Followed by oncology Morbid obesity with BMI of 40.0-44.9, adult 12/25 Overview (09/30/2016): Morbid obesity Assessment & Plan (04/15/2025 5:42 PM CDT): Discussed healthy diet, routine exercise and encouraged further weight loss. Assessment & Plan (03/14/2025 12:01 PM CDT): [...] 12/27/2017 Assessment & Plan (05/30/2017 8:18 PM SYSTEM ADMINISTRATION MANAGER): Will go ahead and start antibiotics. She has a hx of mrsa. Treat with septra. 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 Will renew clobetasol cream per patient request. Uses p.r.n. Assessment & Plan (05/24/2017 5:00 PM SYSTEM ADMINISTRATION MANAGER): Having a lot of itching with dry [...] needed. Assessment & Plan (06/03/2020 3:23 PM SYSTEM ADMINISTRATION MANAGER): Stable on current medication. Continue clonazepam and [...] Encounters Date Type Department Care Team Description 04/24/2025 2:30 PM CDT Office Visit [facility] [place] [address] [place] [id number] Sandra Atkins, RASHI Non-recurrent acute suppurative otitis media of right ear without spontaneous rupture of tympanic membrane (Primary Dx); Viral URI with cough; Impacted cerumen of right ear 04/16/2025 Results Follow-Up [facility] at [address] [address] Savana Sanchez NP Comprehensive metabolic panel, CBC with auto differential, TSH, Additional followed-up results: 8 04/16/2025 Orders Only [facility] at [address] [phone] Savana Sanchez NP 04/15/2025 3:00 PM CDT Lab [facility] - Outpatient Center at [address] [address] Type 2 diabetes mellitus with hyperglycemia, without long-term current use of insulin (HCC); Primary hypothyroidism; Mixed hyperlipidemia; Vitamin D deficiency 04/15/2025 2:00 PM CDT Office Visit [facility] Endocrine Care at [address] [address] Giorgio Myers, Type 2 diabetes mellitus without complication, without long-term current use of insulin (HCC) (Primary Dx); Primary hypothyroidism 04/15/2025 1:30 PM CDT Office Visit [facility] at [address] [phone] Savana Sanchez NP Encounter for Medicare annual wellness exam (Primary Dx); Type 2 diabetes mellitus with hyperglycemia, without long-term current use of insulin (HCC); Essential hypertension; Mixed hyperlipidemia; Primary hypothyroidism; Morbid obesity with BMI of 40.0-44.9, adult (HCC); Vitamin D deficiency; Breast neoplasm; Primary colon cancer with invasion of muscularis propria into pericolorectal tissues (T3); Metastatic colon cancer to liver; Major depressive disorder, recurrent, mild; Anxiety; Screening for AAA (abdominal aortic aneurysm) 03/13/2025 11:00 AM CDT Office Visit [facility] Care at [address] [phone] Savana Sanchez NP Essential hypertension (Primary Dx); [...] Orthopnea; Post-menopausal; Pedal edema 03/13/2025 Orders Only [facility] Primary Care at [address] [address] Provider, MD Jennifer from Last 3 Months Immunizations Immunization Administration Dates Next Due Heplisav-b (Hepatitis B) 04/09/2025 Influenza, Quadrivalent, Hig h Dose, Preservative Free, [...] Conjugate Pcv20 07/20/2022 Tdap 04/05/2023,10/16/2018 ZOSTER Recombinant 04/09/2025,07/20/2022 Surgical History Surgery Date Site/Laterality Comments OTHER [...] on file Legal Sex Female 8:01 PM SYSTEM ADMINISTRATION MANAGER Gender Identity Not on file Sexual Orientation [...] Mass Index 40.79 04/24/2025 2:23 PM CDT Plan of Treatment Health Maintenance Due Date Last Done Comments Breast Cancer Screening-Mammogram 01/24/2021 01/25/2020, 01/25/2020, 12/22/2018, Additional history exists Osteoporosis Screening-Bone Density Scan 03/03/2024 03/03/2022 Covid-19 Vaccine (2024-07 6 season) 2025 07/19/2022, 06/18/2021, 09/15/2020, Additional history exists Dilated Eye Exam 04/18/2025 04/18/2024 Foot Exam 06/25/2025 06/25/2024 Hemoglobin A1C 10/14/2025 04/15/2025, 0 08/2024, 06/25/2024, Additional history exists Albumin Creatinine Ratio, Urine 04/15/2026 , 06/29/2024 Depression Screening 04/15/2026 04/15/2025, 04/18/2024, 01/20/2023, Additional history exists Fall Risk Assessment 04/15/2026 04/15/2025, 01/20/2023, 07/20/2022, Additional history exists Lipid Panel 04/15/2026 04/15/2025, 01/0 08/2024, 10/05/2023, Additional history exists Well Visit 65+ 04/15/2026 04/15/2025, 07/20/2022 eGFR 04/15/2026 04/15/2025, 0 08/2024, 10/05/2023, Additional history exists DTaP/Tdap/Td Vaccine (3 - [...] vaccine 65+ Completed 07/20/2022 Influenza Vaccine Completed 03/13/2025, , 04/06/2023, Additional history exists Hepatitis B Screening Completed 04/09/2025, 025 Zoster Vaccine Completed 04/09/2025, 07/20/2022 Procedures Procedure Name Priority Date/Time Associated Diagnosis Comments POC INFLUENZA A/B, COVID-19 ANTIGEN Routine 04/24/2025 2:47 PM CDT Viral URI with cough POCT RAPID STREP Routine 04/24/2025 2:44 PM CDT Viral URI with cough [place] REMOVAL IMPACTED CERUMEN INSTRUMENTATION UNILAT Routine 04/24/2025 2:30 PM CDT Impacted cerumen of right ear EGFR Routine 04/15/2025 2:52 PM CDT Type 2 diabetes mellitus with hyperglycemia, without long-term current use of insulin (HCC) T4, FREE Routine 04/15/2025 2:52 PM CDT Primary hypothyroidism DIFFERENTIAL AUTO Routine 04/15/2025 2:5 2 PM CDT Type 2 diabetes mellitus with hyperglycemia, without long-term current use of insulin (HCC) THYROID FUNCTION CASCADE Routine 04/15/2025 2:52 PM CDT Primary hypothyroidism VITAMIN D 25 HYDROXY Routine 04/15/2025 2:52 PM CDT Vitamin D deficiency ALBUMIN CREATININE RATIO, URINE Routine 04/15/2025 2:52 PM CDT Type 2 diabetes mellitus with hyperglycemia, without long-term current use of insulin (HCC) HEMOGLOBIN A1C Routine 04/15/2025 2:52 PM CDT Type 2 diabetes mellitus with hyperglycemia, without long-term current use of insulin (HCC) LIPID PANEL Routine 04/15/2025 2:52 PM CDT Mixed hyperlipidemia TSH Routine 04/15/2025 2:52 PM CDT Primary hypothyroidism CBC WITH AUTO DIFFERENTIAL Routine 04/15/2025 2:52 PM CDT Type 2 diabetes mellitus with hyperglycemia, without long-term current use of insulin (HCC) COMPREHENSIVE METABOLIC PANEL Routine 04/15/2025 2:52 PM CDT Type 2 diabetes mellitus with hyperglycemia, without long-term current use of insulin (HCC) CHEST, ABDOMEN, NECK AND PELVIS COMPUTERIZED TOMOGRAPHY (CT) WITHOUT THEN WITH CONTRAST Schedule Routine, Read Routine (OP Routine) 02/06/2025 3:01 PM CDT RETINAVUE SCANNER - OU - BOTH EYES Routine 04/18/2024 Type 2 diabetes mellitus with hyperglycemia, unspecified whether assisted insulin use (HCC) DEXA AXIAL SKELETON BONE DENSITY 1 OR MORE SITES Schedule Routine, Read Routine (OP Routine) 03/03/2022 SCREENING MAMMOGRAM 2D BILATERAL Schedule Routine, Read Routine (OP Routine) 01/25/2020 HEPATITIS C ANTIBODY Routine 04/12/2019 1:33 PM CDT Encounter for hepatitis C screening test for low risk patient COLONOSCOPY Routine 07/05/2016 1:12 PM SYSTEM ADMINISTRATION MANAGER HM COLONOSCOPY Routine 07/05/2016 from Last 3 Months or Most Recently Relevant to Health Maintenance Results * POC Influenza A/B, COVID-19 antigen (04/24/2025 2:47 PM CDT) [facility] Influenza A Ag, POC Negative Negative [facility] Influenza B Ag, POC Negative Negative [facility] COVID-19 Ag POC Presumptive Negative Presumptive Negative, Invalid [facility] Nasal 04/24/2025 2:47 PM CDT Sandra Atkins NP POINT OF CARE TEST ORDERABLES Final Result [facility] [address] [place] [address], [facility] * POCT rapid strep A (04/24/2025 2:44 PM CDT) [facility] Rapid Strep A, POC Negative Negative Swab 04/24/2025 2:44 PM CDT Result [facility] Sandra Atkisn CONSTRUCTION AND MAINTENANCE INSPECTOR POINT OF CARE TEST ORDERABLES Final Result * [place] REMOVAL IMPACTED CERUMEN INSTRUMENTATION UNILAT (04/24/2025 2:30 [...] well with no immediate complications Sandra Atkins CONSTRUCTION AND MAINTENANCE INSPECTOR IN CLINIC/BEDSIDE ORDERABLES Final Result * (ABNORMAL) eGFR (04/15/2025 2:52 PM CDT) [facility] eGFR 30(L) >=60 mL/min/1. 73 m2 Comment: Interpretive Data Reference Interval Normal >/= 90 mL/min/1.73m2 Mildly decreased* 60 - 89 mL/min/1.73m2 Mildly to moderately decreased 45 - 59 mL/min/1.73m2 Moderately to severely decreased 30 - 44 mL/min/1.73m2 Severely decreased 15 - 29 mL/min/1.73m2 Kidney Failure < 15 mL/min/1.73m2 *Relative to young adult level Estimated glomerular filtration rate is determined by the 2020 CKD-EPI equation recommended by the National Kidney Foundation (A Unifying Approach to GFR Estimation: Recommendations of the NKF-ASK Task Force on Reassessing the Inclusion of Race in Diagnosing Kidney Disease, JASN 2020). The CKD-EPI equation should not be used for patients with unstable renal function and has not been validated in children and those over 70. Current interpretive data was last reviewed 2021. Testing performed by: [address] [address] Blood 04/15/2025 2:52 PM CDT 04/15/2025 7:26 PM CDT us Savana Sanchez CONSTRUCTION AND MAINTENANCE INSPECTOR LAB BLOOD ORDERABLES Final Re sult [address] Department [place] [address] * Differential, auto (04/15/2025 2:52 PM CDT) Neutrophil abs 2.86 1.50 - 6.50 K/cumm Comment:Testing performed by : [address] [address] Imm gran abs 0.05 0.00 - 0.10 K/cumm KAYLA Comment:Testing performed by : [address] [address] Lymphocyte abs 1.95 0.80 - 3.30 K/cumm KAYLA Comment:Testing performed by : [address], [address] Monocyte abs 0.55 0.20 - 0.80 K/cumm CERNER CH Comment:Testing performed by : [facility], [address] [place] [address]., [id number] Eosinophil abs 0.24 0.00 - 0.50 K/cumm CERNER CH Comment:Testing performed by : [facility], [address] [place] [address]., [address] Basophil abs 0.04 0.00 - 0.10 K/cumm CERNER CH Comment:Testing performed by : [address] [address] Neutrophil pct 50.2 % CERNER CH Comment: Interpretive Data Percent cell count reference ranges are not reported, since discordance with absolute values may lead to misinterpretation of CBC data. Current Interpretive Data was last revised on 2017. Testing performed by: [address] [address] Imm gran pct 0.9 % CERNER CH Comment: Interpretive Data Percent cell count reference ranges are not reported, since discordance with absolute values may lead to misinterpretation of CBC data. Current Interpretive Data was last revised on 2017. Testing performed by: [address] [address] Lymphocyte pct 34.3 % CERNER CH Comment: Interpretive Data Percent cell count reference ranges are not reported, since discordance with absolute values may lead to misinterpretation of CBC data. Current Interpretive Data was last revised on 2017. Testing performed by: [address] [address] Monocyte pct 9.7 % CERNER CH Comment: Interpretive Data Percent cell count reference ranges are not reported, since discordance with absolute values may lead to misinterpretation of CBC data. Current Interpretive Data was last revised on 2017. Testing performed by: [address] [address] Eosinophil pct 4.2 % CERNER CH Comment: Interpretive Data Percent cell count reference ranges are not reported, since discordance with absolute values may lead to misinterpretation of CBC data. Current Interpretive Data was last revised on 2017. Testing performed by: [address] [address] Basophil pct 0.7 % CERNER CH Comment: Interpretive Data Percent cell count reference ranges are not reported, since discordance with absolute values may lead to misinterpretation of CBC data. Current Interpretive Data was last revised on 2017. Testing performed by: [facility], [address] [place] [address]., [address] Blood 04/15/2025 2:52 PM CDT 04/15/2025 7:08 PM CDT Savana Sanchez LAB BLOOD ORDERABLES Final Re sult Performing Organization Address [facility] Co de Phone Number KAYLA [address] Department [place] [address] * (ABNORMAL) Thyroid Function Benzie (04/15/2025 2:52 PM CDT) Pathologist [facility] TSH 9.75(H) 0.30 - 4.20 mcIUnit/mL Comment:Testing performed by : [facility], [address] [place] [address]., [address] Blood 04/15/2025 2:52 PM CDT 04/15/2025 7:08 PM CDT Savana Sanchez LAB BLOOD ORDERABLES Final Re sult Performing Organization Address [facility] Co de Phone Number KAYLA [facility]33 [facility] Department [place] [employer] [place] [address] * (ABNORMAL) CBC with auto differential (04/15/2025 2:52 PM CDT) WBC 5.69 3.80 - 9.90 K/cumm Comment:Testing performed by : [address] [address] Hgb 9.7(L) 11.9 - 15.5 g/dL KAYLA Comment:Testing performed by : [facility], [address] [place] [address]., [address] Hct 30.5(L) 35.6 - 45.5 % KAYLA Comment:Testing performed by : [address] [address] Plt 150 150 - 400 K/cumm CERNER CH Comment:Testing performed by : [facility], [address] [place] [address], [address] MPV 10.0 9.1 - 12.3 fL CERNER CH Comment:Testing performed by : [facility], [address] [place] [address], [address] RBC 2.88(L) 3.90 - 5.20 M/cumm CERNER CH Comment:Testing performed by : [address], [address] MCV 105.9(H) 81.3 - 96.4 fL CERNER CH Comment:Testing performed by : [address], [address] MCH 33.7(H) 27.1 - 33.3 pg CERNER CH Comment:Testing performed by : [address], [address] MCHC 31.8(L) 32.3 - 35.7 g/dL CERNER Comment:Testing performed by : [address], [address] RDW CV 14.2 11.1 - 14.9 % CERNER Comment:Testing performed by : [address], [address] RDW SD 54.8(H) 35.7 - 48.1 fL CERNER Comment:Testing performed by : [address], [address] NRBC abs 0.00 0.00 - 0.01 K/cumm CERNER Comment:Testing performed by : [address], [address] Blood 04/15/2025 2:52 PM CDT 04/15/2025 7:08 PM CDT us Savana Sanchez CONSTRUCTION AND MAINTENANCE INSPECTOR LAB BLOOD ORDERABLES Final Re sult [address] Department [place] [address] * (ABNORMAL) Albumin Creatinine Ratio, Urine (04/15/2025 2:52 PM CDT) Pathologist [facility] Albumin Ur 341.4 mg/L Comment: Interpretive Data No reference range established. Current interpretive data was last revised 2018. Testing performed by: [facility], [address] [place] [address]., [address] Creatinine Ur 53.8 mg/dL [facility] Comment: Interpretive Data No reference range established. Current interpretive data was last revised 2018. Testing performed by: [facility], [address] [place] [address]., [address] Albumin Creatinine Ratio, Ur 635(H) 1 - 29 mg/g [facility] Comment:Testing performed by : [address] [address] Urine 04/15/2025 2:52 PM CDT 04/15/2025 7:08 PM CDT Savana Sanchez CONSTRUCTION AND MAINTENANCE INSPECTOR LAB URINE ORDERABLES Final Re sult Performing Organization Address City/[facility]/ZIP Co de Phone Number [facility] [address] [address] Department [place] [employer] [place] [address] * (ABNORMAL) Vitamin D 25 hydroxy (04/15/2025 2:52 PM CDT) [facility] Vitamin D 25-OH 16(L) 30 - 80 ng/mL Comment:Testing performed by : [address] [address] Blood 04/15/2025 2:52 PM CDT 04/15/2025 7:08 PM CDT Savana Sanchez CONSTRUCTION AND MAINTENANCE INSPECTOR LAB BLOOD ORDERABLES Final Re sult Performing Organization Address City/[facility]/ZIP Co de Phone Number [facility] [address] [facility] Department [place] [employer] [place] [address] * (ABNORMAL) TSH (04/15/2025 2:52 PM CDT) Pathologist [facility] Thyroid Stimulating Hormone 9.75(H) 0.30 - 4.20 mcIUnit/mL Comment:Testing performed by : [address] [address] Blood 04/15/2025 2:52 PM CDT 04/15/2025 7:08 PM CDT Savana Sanchez NP LAB BLOOD ORDERABLES Final Re sult Performing Organization Address [facility] Co de Phone Number [place] [phone] [facility] Department [place] [address] * T4, free (04/15/2025 2:52 PM CDT) Free T4 1.13 0.90 - 1.70 ng/dL Comment:Testing performed by : [address] [address] Blood 04/15/2025 2:52 PM CDT 04/15/2025 7:26 PM CDT Savana Sanchez NP LAB BLOOD ORDERABLES Final Re sult Performing Organization Address [facility] de Phone Number [place] [phone] [facility] [place] [address] * (ABNORMAL) Hemoglobin A1c (04/15/2025 2:52 PM CDT) Pathologist [facility] Hgb A1C 7.4(H) 4.0 - 5.6 % Comment:Testing performed by : [address] [address] Estimated Average Glucose 166 mg/dL KAYLA Comment: The ADA recommends reporting an estimated Average Glucose (eAG) with all Hemoglobin A1c results using the equation derived from a study of 507 normal and diabetic adults. Minority populations were underrepresented and children were not included. (Diabetes Care 31:3669-3667, 2008). The eAG is not equivalent to a fasting glucose. Testing performed by: [address] [address] Blood 04/15/2025 2:52 PM CDT 04/15/2025 7:08 PM CDT us Savana Sanchez CONSTRUCTION AND MAINTENANCE INSPECTOR LAB BLOOD ORDERABLES Final Re sult KAYLA [address] [facility] Department [place] [address] * Lipid panel (04/15/2025 2:52 PM CDT) Cholesterol 129 30 - 199 mg/dL Comment: Interpretive Data Ages < or = 19 years Acceptable: <170 mg/dL Borderline high: 170-199 mg/dL High: >or= 200 mg/dL Ages > or = 20 years Desirable: <200 mg/dL Borderline high: 200-239 mg/dL High: >or= 240 mg/dL Literature References: 1. Expert Panel on Integrated Guidelines for Cardiovascular Health and Risk Reduction in Children and Adolescents. Pediatrics 2011;128:S213 2. NCEP Expert Panel. Circulation 2004;110:227 Current Interpretive Data was last revised on 2018. Testing performed by: [address] [address] Triglycerides 114 <=149 mg/dL KAYLA Comment: Interpretive Data Ages < or = 9 years Acceptable: <75 mg/dL Borderline high: 75-99 mg/dL High: >or= 100 mg/dL Ages 10 to 20 years Acceptable: <90 mg/dL Borderline high: 90-129 mg/dL High: >or= 130 mg/dL Ages > or = 20 years Desirable: <150 mg/dL Borderline high: 150-199 mg/dL High: 200-499 mg/dL Very high: >or= 499 mg/dL Literature References: 1. Expert Panel on Integrated Guidelines for Cardiovascular Health and Risk Reduction in Children and Adolescents. Pediatrics 2011;128:S213 2. NCEP Expert Panel. Circulation 2004;110:227 Current Interpretive Data was last revised on 2018. Testing performed by: [address] [address] HDL 40 >=40 mg/dL KAYLA Comment: Interpretive Data Ages < or = 19 years Acceptable: >45 mg/dL Borderline low: 40-45 mg/dL Low: <40 mg/dL Ages > or = 20 years Desirable: >or= 60 mg/dL Low: <40 mg/dL Literature References: 1. Expert Panel on Integrated Guidelines for Cardiovascular Health and Risk Reduction in Children and Adolescents. Pediatrics 2011;128:S213 2. NCEP Expert Panel. Circulation 2004;110:227 Current Interpretive Data was last revised on 2018. Testing performed by: [facility], [address] [place] [address]., [address] LDL, calculated 68 <=129 mg/dL KAYLA Comment: Interpretive Data Ages < or = 19 years Acceptable: <110 mg/dL Borderline high: 110-129 mg/dL High: >or= 130 mg/dL Ages > or = 20 years Optimal: <100 mg/dL Near optimal: 100-129 mg/dL Borderline high: 130-159 mg/dL High: >160 mg/dL Calculated using the Laci LDL-C estimating equation. This equation was implemented on 2024. Prior to this date LDL-C was estimated using the Friedewald equation. Literature References: 1. Expert Panel on Integrated Guidelines for Cardiovascular Health and Risk Reduction in Children and Adolescents. Pediatrics 2011;128:S213 2. NCEP Expert Panel. Circulation 2004;110:227 3. Laci Gonzalez et al. LEIGH Cardiol. 2019October 25;5(5):540-548. doi: 10.1001/[email or web address] Current Interpretive Data was last revised on 2024. Testing performed by: [address] [address] Non-HDL Cholesterol 89 mg/dL KAYLA Comment: Interpretive Data Ages < or = 19 years Acceptable: <120 mg/dL Borderline high: 120-144 mg/dL High: >145 mg/dL Ages > or = 20 years When triglycerides are >200 mg/dL, Non-HDL cholesterol is a secondary target of therapy with treatment goals that are 30 mg/dL greater than the LDL cholesterol target. Literature References: 1. Expert Panel on Integrated Guidelines for Cardiovascular Health and Risk Reduction in Children and Adolescents. Pediatrics 2011;128:S213 2. NCEP Expert Panel. Circulation 2004;110:227 Current Interpretive Data was last revised on 2018. Testing performed by: [facility], [address] [place] [address]., [address] Chol/HDL ratio 3 CERNER Comment:Testing performed by : [address] [address] Blood 04/15/2025 2:52 PM CDT 04/15/2025 7:08 PM CDT us Savana Sanchez CONSTRUCTION AND MAINTENANCE INSPECTOR LAB BLOOD ORDERABLES Final Re sult [address] Department [place] [address] * (ABNORMAL) Comprehensive metabolic panel (04/15/2025 2:52 PM CDT) Sodium 140 135 - 145 mmol/L Comment:Testing performed by : [address] [address] Potassium, pl 4.2 3.3 - 4.9 mmol/L CERNER Comment:Testing performed by : [address] [address] Chloride 105 97 - 110 mmol/L CERNER Comment:Testing performed by : [address] [address] CO2 23 22 - 32 mmol/L CERNER Comment:Testing performed by : [address] [address] Anion gap 12 2 - 15 mmol/L BANNERNER Comment:Testing performed by : [address] [address] BUN 26(H) 6 - 25 mg/dL CERNER Comment:Testing performed by : [address] [address] Creatinine 1.81(H) 0.60 - 1.10 mg/dL CERNER Comment:Testing performed by : [address] [address] Glucose 95 70 - 199 mg/dL [facility] Comment: Interpretive Data Fasting glucose >/= 126 mg/dl is diagnostic for diabetes. Fasting is defined as no caloric intake for at least 8 hours. Fasting glucose between 100 mg/dl to 125 mg/dl is diagnostic of prediabetes. In a patient with classic symptoms of hyperglycemia or hyperglycemic crisis, a random glucose >/= 200 mg/dl is diagnostic for diabetes. In the absence of unequivocal hyperglycemia, results should be confirmed by repeat testing. The classification and Diagnosis of Diabetes Diabetes Care 202; 46: S19-S40. Current interpretive data was last revised 2022. Testing performed by: [facility], [address] [place] [address]., [address] Calcium 9.6 8.5 - 10.3 mg/dL CERNER Comment:Testing performed by : [address] [address] Bilirubin, total 0.4 0.1 - 1.2 mg/dL CERNER CH Comment:Testing performed by : [address] [address] Protein, pl 8.5 6.5 - 8.5 g/dL CERNER CH Comment:Testing performed by : [address] [address] Albumin 4.2 3.5 - 5.0 g/dL CERNER CH Comment:Testing performed by : [address] [address] Alk phos 69 40 - 130 Units/L CERNER CH Comment:Testing performed by : [address], [address] ALT 17 7 - 45 Units/L CERNER CH Comment:Testing performed by : [address] [address] AST 34 10 - 45 Units/L CERNER CH Comment:Testing performed by : [address], [address] Blood 04/15/2025 2:52 PM CDT 04/15/2025 7:08 PM CDT us Savana Sanchez CONSTRUCTION AND MAINTENANCE INSPECTOR LAB BLOOD ORDERABLES Final Re sult KAYLA [address] Department [place] [address] * CHEST, ABDOMEN, NECK AND PELVIS COMPUTERIZED TOMOGRAPHY (CT) WITHOUT THEN WITH CONTRAST (:01 PM CDT) Anatomical Region Laterality Modality N/A Computed Tomogra phy Historical Provider IMG CT PROCEDURES Final R esult * RetinaVue Scanner - OU - Both Eyes (04/18/2024) Anatomical Region Laterality Modality Head Fundus Photograp hy Retina 04/18/2024 Savana Sanchez NP OPHTH PHOTOGRAPHY Final Resul t * Dexa Axial Skeleton Bone Density 1 or 2 Site (03/03/2022) Anatomical Region Laterality Modality Body N/A Radiographic Mey ging Result [facility] Generic External Data Provider IMG DXA PROCEDURE S Final Result * Screening Mammogram 2D Bilateral (01/25/2020) Anatomical Region Laterality Modality Breast Bilateral Mammography Result [facility] Historical Provider IMG MAMMO PROCEDURES Danelle l Result * Hepatitis C antibody (04/12/2019 1:33 PM CDT) Hep C Ab Negative Negative KAYLA GALLAGHER ([place]) Comment:Testing performed by : [facility], [address] [place] [address], [place]., [address] Blood specimen (specimen) 04/12/2019 1:33 PM CDT 04/13/2019 9:46 AM CDT Result [facility] Zahida Leahy NP LAB MICROBIOLOGY - GENERAL OR DERABLES Final Result Performing Organization Address City/State/[facility] Co de Phone Number KAYLA GALLAGHER (DAVID) [address] [place] [phone] * COLONOSCOPY (07/05/2016 1:12 PM SYSTEM ADMINISTRATION MANAGER) Result [facility] Historical Provider HEALTH MAINTENANCE Final Result * COLONOSCOPY (07/05/2016) HM Colonoscopy Unknown Result [facility] Historical Provider HEALTH MAINTENANCE Final Result from Last 3 Months or Most Recently Relevant to Health Maintenance Insurance [employer] [facility] AETNA MEDICARE GOLD Care Teams Hydro Mechanic Relationship Specialty Start Date End Date Savana Sanchez NP [address] [facility] [address] [place] [address] PCP - General Yard Associate 10/05/23
--- OUTSIDE RECORDS SUMMARY | 2025-04-25 07:39 | XMS_ITS | Clinical Summary ---
Author Organization [facility] Address [address] [place] [address] Phone Care Team Providers Care Heat Treating Operator Name Role Phone Zahida Leahy APRN, ICER 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 Primary Care Provider Allergies No known [...] complete this topic Insurance [employer] Care Teams Heat Treating Operator Relationship Specialty Start Date End Date Zahida Leahy, METAL MOCKUP MAKER, ICER 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 [address] [place] [address] [address]EN[address] [place] [id number] PCP - General Advanced Practice Nurse 12/21/17
--- NOTE | 2025-04-25 07:47 | ECHO_ITS ---
Patient Info Name: Laly Kincaid Age: 70 years : 1955 Gender: Female Ht: 62 in Wt: 233 lbs BSA: 2.21 m2 HR: 66 bpm BP: 140 / 84 mmHg Technical Quality: Good Exam Date: 04/25/2025 8:25 AM Patient Status: O Admit Date: 04/25/2025 Exam Type: CA echo doppler color flow Complete two-dimensional, color flow and Doppler transthoracic echocardiogram is performed. Staff Referring Physician: Esau Hayes DO Snow Removal/Plowing: Mehnaz Lowery Attending Provider: Esau Hayes DO Summary 1. Complete two-dimensional, color flow and Doppler transthoracic echocardiogram is performed. 2. Left ventricular chamber dimension is normal. 3. Left ventricular systolic function is normal, estimated at 60-65. 4. The left ventricular diastolic function is abnormal. 5. E/e' 14 is mildly elevated. 6. Left atrial chamber dimension is mildly enlarged. 7. There is trace tricuspid valve regurgitation. 8. No pulmonary hypertension, estimated pulmonary arterial systolic pressure is 27 mmHg. Left Ventricle E/e' 14 is mildly elevated. Left ventricular chamber dimension is normal. Left ventricular systolic function is normal, estimated at 60-65. The left ventricular diastolic function is abnormal. Right Ventricle Right ventricular chamber dimension is normal. Right ventricular systolic function is normal. and with normal TAPSE 2.0 cm. Left Atria Left atrial chamber dimension is mildly enlarged. Right Atria Right atrial chamber dimension is normal. Aortic Valve The aortic valve is trileaflet. There is no aortic valve stenosis. There is no aortic valve regurgitation. Pulmonic Valve There is no pulmonic regurgitation. Mitral Valve There is no mitral valve stenosis. There is no mitral valve regurgitation. Tricuspid Valve There is trace tricuspid valve regurgitation. No pulmonary hypertension, estimated pulmonary arterial systolic pressure is 27 mmHg. Pericardium/Pleural There is no pericardial effusion. Inferior Vena Cava Normal inferior vena cava with >50% collapse upon inspiration consistent with normal right atrial pressure, 5 mmHg. Aorta The aortic root size at the sinus of Valsalva is normal. Left Ventricular Outflow Tract Name Value Normal LVOT 2D LVOT Diameter 2.0 cm LVOT Doppler LVOT Peak Velocity 142 cm/s LVOT Peak Gradient 8 mmHg LVOT Mean Gradient 4 mmHg LVOT VTI 37 cm LVOT VTI/AV VTI Ratio 0.7 LVOT Stroke Volume 116 ml LVOT CO 7.8 l/min LVOT CI 3.5 l/min/m2 Pulmonic Valve Name Value Normal RVOT Doppler RVOT Peak Velocity 55 cm/s RVOT Peak Gradient 1 mmHg PV Doppler PV Peak Velocity 138 cm/s PV Peak Gradient 8 mmHg Mitral Valve Name Value Normal MV Diastolic Function MV E Peak Velocity 103 cm/s MV A Peak Velocity 100 cm/s MV E/A 1.0 MV Decel Time (PW) 284 ms MV Annular TDI MV E/e' (Septal) 17.1 MV E/e' (Lateral) 12.8 MV E/e' (Average) 15.0 Tricuspid Valve Name Value Normal TV Regurgitation Doppler TR Peak Velocity 234 cm/s TR Peak Gradient 22 mmHg Estimated PAP/RSVP RA Pressure 5 mmHg <=5 PA Systolic Pressure 27 mmHg <36 RV Systolic Pressure 27 mmHg <36 Aortic Valve Name Value Normal AV Doppler AV Peak Velocity 211 cm/s AV Peak Gradient 18 mmHg AV Mean Gradient 11 mmHg AV VTI 49 cm AV Area (Cont Eq VTI) 2.4 cm2 >=3.0 AV Area (Cont Eq Pranav) 2.1 cm2 AV DI (Pranav) 0.67 AV Regurgitation 2D LVOT Area 3.2 cm2 Ventricles Name Value Normal LV Dimensions 2D/MM IVS Diastolic Thickness (2D) 1.0 cm 0.6-1.0 LVID Diastole (2D) 4.3 cm 3.8-5.2 LVIW Diastolic Thickness (2D) 1.0 cm 0.6-0.9 LVID Systole (2D) 3.1 cm 2.2-3.5 LVOT Diameter 2.0 cm LV Mass (2D Cubed) 143.54 g 67.00-162.00 LV Mass Index (2D Cubed) 65 g/m2 43-95 Relative Wall Thickness (2D) 0.49 <=0.42 LV Fractional Shortening/Ejection Fraction 2D/MM LV Fractional Shortening (2D) 28 % 27-45 LV EF (2D Teichholz) 55 % LV Diastolic Volume (4C MOD) 109 ml LV EF (4C MOD) 60 % LV Diastolic Volume (2C MOD) 121 ml LV EF (2C MOD) 59 % LV Diastolic Volume (BP MOD) 115 ml 46-106 LV Diastolic Volume Index (BP MOD) 52 ml/m2 29-61 LV Systolic Volume (BP MOD) 48 ml 14-42 LV Systolic Volume Index (BP MOD) 22 ml/m2 8-24 LV EF (BP MOD) 58 % 54-74 LV Diastolic Length (4C) 8.7 cm LV Systolic Length (4C) 7.6 cm LV Stroke Volume (4C MOD) 66 ml Atria Name Value Normal LA Dimensions LA Volume (4C A-L) 49 ml LA Volume (BP A-L) 42 ml RA Dimensions RA Systolic Major [place] Length (4C) 5.3 cm 2.2-2.8 RA Area (4C) 14.2 cm2 <=18.0 Report Signatures
--- NOTE | 2025-04-25 07:47 | EST_ITS ---
Patient Info Name: Laly Kincaid Age: 70 years : 1955 Gender: Female Ht: 62 in Wt: 223 lbs BSA: 2.16 m2 HR: 64 bpm BP: 112 / 67 mmHg Exam Date: 04/25/2025 7:47 AM Patient Status: O Admit Date: 04/25/2025 Exam Type: CA stress kina w NM A regadenoson stress test was performed. Staff Referring Physician: Esau Hayes DO Attending Provider: Esau Hayes DO Exercise Technologist: Gretta Stone Exercise Physician: Esua Hyaes DO Summary 1. 1. Negative lexiscan stress test for ischemic ST changes by ECG criteria. 2. 2. Stable hemodynamics throughout the test. 3. 3. Nuclear scan to follow and will be reported separately. Please correlate with it. 4. 4. Patient informed of the above results. Protocol: Lexiscan Stress ECG Details Stage: REST Duration (min): 0 min : 51 sec HR (bpm): 64 SBP (mmHg): 112 DBP (mmHg): 67 Stage: REST Duration (min): 5 min : 10 sec HR (bpm): 67 SBP (mmHg): 112 DBP (mmHg): 67 Stage: STAGE 1 Duration (min): 1 min : 0 sec HR (bpm): 87 SBP (mmHg): 128 DBP (mmHg): 75 Stage: RECOVERY Duration (min): 1 min : 0 sec HR (bpm): 77 SBP (mmHg): 128 DBP (mmHg): 75 Stage: RECOVERY Duration (min): 2 min : 0 sec HR (bpm): 74 SBP (mmHg): 128 DBP (mmHg): 75 Stage: RECOVERY Duration (min): 3 min : 0 sec HR (bpm): 72 SBP (mmHg): 123 DBP (mmHg): 71 Stage: RECOVERY Duration (min): 3 min : 5 sec HR (bpm): 71 SBP (mmHg): 123 DBP (mmHg): 71 Rest HR: 67 bpm Peak HR: 87 bpm Rest Sys BP: 112 mmHg Peak Sys BP: 128 mmHg Max Pred HR: 152 bpm % Max Pred HR: 57 % Target HR: 129 bpm Max RPP: 11,136 bpm*mmHg Termination Reason: Completed protocol Cardiac Symptoms: Shortness of breath Total Time: 1 min : 0 sec Rest Pappas BP: 67 mmHg Peak Pappas BP: 75 mmHg Total Dose: 0.4 mg Resting ECG Sinus rhythm. Stress ECG No ST changes. Arrhythmias None. Report Signatures
== END 2025-04-25 07:30 | disposition home or self-care (01) ==
LOC: ANHCARD 07:34
PROVIDERS: PCP Nurse Practitioner; Visit Provider Internal Medicine Cardiovascular Disease
DX: R06.09 Other forms of dyspnea (principal); I51.89 Other ill-defined heart diseases
CPT/HCPCS: 78452; 93017; 93306; A9502; J2785

== ENCOUNTER 2025-06-19 12:30 | Outpatient (CLI) | payer MEDICARE, SELFPAY ==
--- NOTE | ~2025-06-19 | CT_ITS ---
EXAMINATION: CT chest abdomen pelvis w con DATE: 06/19/2025 12:59 INDICATION: Cecal cancer TECHNIQUE: Computed tomography (CT) of the chest, abdomen, and pelvis was performed with 100 mL Omnipaque-350 intravenous contrast. Automated exposure control and iterative reconstruction technique were employed. The dose-length product was 1580.34 mGy-cm. COMPARISON: 04/10/2025 FINDINGS: CHEST CT: Stable appearance of mild peripheral pleural-parenchymal scarring in the anterior right middle lobe. Calcified right lower lobe nodule consistent with old granulomatous disease. No other suspicious pulmonary nodules, pneumonia, pulmonary edema or pleural effusion. Heart size is normal. Distal tip of a right internal jugular central venous port catheter in the high right atrium. No pericardial effusion. Thoracic aorta is normal in caliber with no dissection. No pathologically enlarged thoracic lymphadenopathy. Paraesophageal varices at the thoracic hiatus. Postoperative changes in the right breast along with and right axilla suggesting prior excisional breast biopsy and axillary lymph node dissection. Moderate thoracic spondylosis with chronic anterior wedging of multiple vertebral bodies. ABDOMEN/PELVIS CT: Diffuse hepatic steatosis along with subtle liver surface nodularity, the latter consistent with cirrhosis. Mild splenomegaly measuring 13.4 cm and which along with the esophageal varices is consistent with portal venous hypertension secondary to cirrhosis. No interval change in a 1.8 cm nodule with surgical clips along the margins at the junctions of segments 3 and 4B of the liver. Also without interval change is a subtle 2 cm hypodense nodule in segment 5 of the liver. No new or enlarging hepatic lesions identified. Gallbladder, pancreas, bilateral adrenal glands and kidneys are normal. Status post right hemicolectomy with ileocolic anastomosis in the right abdomen. No bowel obstruction. Bladder is normal. The uterus is not identified and has likely been surgically resected. No free intraperitoneal gas or fluid. No pathologically enlarged abdominal or pelvic lymphadenopathy. Mild lumbar spondylosis. IMPRESSION: 1. No interval change in a couple hypodense hepatic lesions consistent with stable metastatic disease. No new or enlarging lesions identified to suggest progression of metastatic disease.. 2. Cirrhotic liver with mild splenomegaly and paraesophageal varices consistent with secondary portal venous hypertension. Reviewed, dictated and finalized at location A. NG AND MOLDING 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 IMPRESSION: 1. No interval change in a couple hypodense hepatic lesions consistent with sta ble metastatic disease. No new or enlarging lesions identified to suggest progr ession of metastatic disease.. 2. Cirrhotic liver with mild splenomegaly and paraesophageal varices consistent with secondary portal venous hypertension.
--- OUTSIDE RECORDS SUMMARY | 2025-06-19 12:38 | XMS_ITS | Clinical Summary ---
Author Organization [facility] Address [address] [place] [address] Phone Care Team Providers Care Scallop Shucker Name Role Phone Zahida Leahy APRN, REGULATORY ANALYST Primary Care Provider Allergies No known active [...] Virus (RSV) Immunization (Adult) (1 - Risk 50-74 years 1-dose series) 2007 Zoster Immunization (2 of 2) 09/14/2022 07/20/2022 [...] complete this topic Human Papillomavirus (HPV) Immunization (No Doses Required) Completed Meningococcal Immunization (ACWY) Aged Out No longer eligible based on patient's age to complete this topic Rotavirus Immunization Aged Out No lo nger eligible based on patient's age to complete this topic Insurance [employer] Care Teams Scallop Shucker Relationship Specialty Start Date End Date Zahida Leahy, HOLLOW WARE MAKER, REGULATORY ANALYST [address] [facility] [address] [place] [id number] PCP - General Advanced Practice Nurse 12/21/17
--- OUTSIDE RECORDS SUMMARY | 2025-06-19 12:38 | XMS_ITS | Clinical Summary ---
Author Organization [facility] [employer] [address] Address [address] [place] [address] Care Team Providers Care Client Account Manager Name Role Phone Zahida Leahy [facility] Primary Care Provider [phone] Allergies No known active allergies Medications loratadine [...] prior to access 30 Gram 3 Active benazepriL (LOTENSIN) 40 mg tablet Take [...] for Nausea/Emesis. 90 Tablet 1 025 Active triamterene-hydroCH LOROthiazide (MAXZIDE 25) 37.5-25 mg tablet Take by mouth daily. 025 2025 Active Januvia 50 mg Tablet Take 50 mg by mouth daily with breakfast. 025 Active cholecalciferol 1,250 mcg (50,000 unit) Capsule Take 50,000 Units by mouth every 7 days. Active diphenoxylate-atrop ine 2.5-0.025 mg tabletIndications:C ecal cancer (CMS/HCC),Diarrhea due to drug,Diarrhea Take 1 Tablet by mouth 4 times daily as needed for Diarrhea/Loose Stools. 90 Tablet 025 Active diphenoxylate-atrop ine 2.5 mg-0.025 mg tabletIndications:C ecal cancer (CMS/HCC),Diarrhea due to drug,Diarrhea Take 1 Tablet by mouth 4 times daily as needed for Diarrhea/Loose Stools. 90 Tablet 025 2024 Disconti nued(Reo rder) Active Problems Patient Care Coordination No te [...] oncologist: Primary care physician: Dr. Shweta Zaman CHIEF SALES OFFICER: ? Neuropsychology Service Director: ? Palliative care physician: Nurse Navigator: Advanced [...] End Date: Clinical trial: [] Yes [] [place] of trial: Drugs given and date completed: [...] other tests as indicated on each visit. COSTUME SEAMSTRESS: As needed. * Testing as indicated. Please continue to see your primary care provider/HAND COREMAKER for all general health care recommended for a female your age. Possible late and/or computer terminal operator effects that someone with this type of [...] back. OTHER COMMENTS REFERRALS [] Star [] [facility] [] [facility] [] Other (Specify): ADDITIONAL RESOURCES Patients may have many questions and concerns after their cancer treatment ends. A list of local resources as provided below to assist you. 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 Had b/l mammogram in Jul KASH PLAN: cont TMX Needs right sided mammogram in January and b/l in Jul with DMR visit. ROV 3 months. (no RT followup) Encounters Date Type Department Care Team Description 06/10/2025 Orders Only [facility] Oncology and Hematology - [address] [place] [address] Real Amaro MD Cecal cancer ([facility]/HCC) 05/30/2025 Orders Only [facility] Oncology and Hematology - Tim [address] [place] [address] Real Amaro MD 05/29/2025 9:15 AM NATIONAL SALES ASSOCIATE Office Visit [facility] Oncology and Hematology - Tim [address] [place] [address] Real Amaro MD Cecal cancer ([facility]) (Primary Dx); Diarrhea due to drug; Diarrhea 05/28/2025 Orders Only [facility] Oncology and Hematology - Tim [address] [place] [phone] Real Amaro MD Cecal cancer (CMS/HCC) (Primary Dx) 05/14/2025 External Device Data STL ABSTRACTION Provider, Abstract 05/09/2025 Orders Only [facility] Oncology and Hematology - Tim [address] [place] [phone] Real Amaro MD 04/22/2025 Orders Only [facility] Oncology and Hematology - Tim [address] Real Amaro MD Cecal cancer ([facility]/HCC) 04/17/2025 11:30 AM CDT Office Visit [facility] Oncology and Hematology - [address] [place] [phone] Real Amaro MD Cecal cancer (CMS/HCC) (Primary Dx) 04/17/2025 Orders Only [facility] Oncology and Hematology - [address] Real Amaro MD 04/10/2025 Orders Only [facility] Oncology and Hematology - [address] [place] [phone] Real Amaro MD 04/08/2025 Orders Only [facility] Oncology and Hematology - Tim [address] [place] [phone] Real Amaro MD Cecal cancer ([facility]/HCC) 03/29/2025 Orders Only [facility] Oncology and Hematology - [address] [place] [phone] Real Amaro MD 03/27/2025 8:45 AM CDT Office Visit [facility] Oncology and Hematology - Tim [address] [place] [phone] Real Amaro MD Cecal cancer (CMS/HCC) (Primary Dx) 03/25/2025 Orders Only [facility] Oncology and Hematology [facility] [address] [place] [address] Real Amaro MD Cecal cancer ([facility]/HCC) from Last 3 Months Immunizations Immunization Administration [...] on file Legal Sex Female 5:39 AM NATIONAL SALES ASSOCIATE Gender Identity Not on file Sexual Orientation Not on file Occupation Industry Job Start Date Job End Date Not on file Not on file Not on file Not on file Last Filed Vital Signs Vital Sign Reading Time Taken Comments Blood Pressure 170/90 05/29/2025 9:17 AM NATIONAL SALES ASSOCIATE Pulse 76 05/29/2025 9:11 AM NATIONAL SALES ASSOCIATE Temperature 36.2 C (97.1 F) 05/29/2025 9:11 AM NATIONAL SALES ASSOCIATE Respiratory Rate 16 05/29/2025 9:11 AM NATIONAL SALES ASSOCIATE Oxygen Saturation 97% 05/29/2025 9:11 AM NATIONAL SALES ASSOCIATE Inhaled Oxygen Concentration - - Weight 103.6 kg (228 lb 6.4 oz) 05/29/2025 9:11 AM NATIONAL SALES ASSOCIATE Height 157.5 cm (5' 2) 03/22/2022 7:06 AM CDT Body Mass Index 41.77 03/22/2022 7:06 AM CDT Plan of Treatment Upcoming Encounters Date Type Department Care Team (Late st Contact Info) Description 07/03/2025 9:30 AM NATIONAL SALES ASSOCIATE Office Visit [facility] Oncology and Hematology [address] [place] [phone] Real Amaro MD [address] [facility] [address] [place] [phone] Health Maintenance Due Date Last Done Comments DIABETES MICROALBUMIN ANNUAL SCREEN 1975 LDL CHOLESTEROL ANNUAL 1975 RSV VACCINE (60+ or ) (1 - Risk 50-74 years 1-dose series) 2007 COVID-19 Vaccine (3 - Pfizer risk series) [...] history exists Medical Devices Explanted Type Area Tobacco Cutter Device Identifier Shelf Expiration Date Model / Serial / Lot Port Pwrprt Isp Clrvu 8fr [id number] - [id number] Implanted:Qty: 1 on 02/03/2015 by Myriam Sotomayor MD at [facility] Explanted:Qty: 1 on 10/13/2015 at [facility] Port Left: Chest CR BARD- [employer] 05/24/2016 [id number] / / [id number] Description:placement left I J Procedures Procedure Name Priority Date/Time Associated Diagnosis Comments COMPREHENSIVE METABOLIC PANEL Routine 05/29/2025 2:41 PM NATIONAL SALES ASSOCIATE CBC WITH AUTODIFFERENTIAL Routine 05/29/2025 10:57 AM NATIONAL SALES ASSOCIATE COMPREHENSIVE METABOLIC PANEL Routine 05/08/2025 7:59 AM NATIONAL SALES ASSOCIATE COMPREHENSIVE METABOLIC PANEL Routine 04/17/2025 4:[address] CHEST ABDOMEN PELVIS W CONT Routine 04/10/2025 11:56 AM CDT COMPREHENSIVE METABOLIC PANEL Routine 03/27/2025 11:10 AM CDT MAMMO BILAT DIAGNOSTIC Routine 9:21 AM CDT COLONOSCOPY REPORT 07/23/2019 7: 46 AM NATIONAL SALES ASSOCIATE HEMOGLOBIN A1C Routine 08/06/2015 7:39 AM NATIONAL SALES ASSOCIATE Toxic neuropathy Impaired glucose metabolism from Last 3 Months or Most Recently Relevant to Health Maintenance Results * COMPREHENSIVE METABOLIC PANEL (05/29/2025 2:41 PM NATIONAL SALES ASSOCIATE) Only the most recent of4 resultswithin the time period is included. Blood us Real Amaro MD CHEMISTRY ORDERABLES Final Resu lt * CBC WITH AUTODIFFERENTIAL (05/29/2025 10:57 AM NATIONAL SALES ASSOCIATE) Blood us Real Amaro MD HEMATOLOGY ORDERABLES Final Res ult * CT CHEST ABDOMEN PELVIS W CONT (04/10/2025 11:56 AM CDT) Anatomical Region Laterality Modality Chest Computed Tomogra phy us Real Amaro MD CT ORDERABLES Final Result * MAMMO BILAT DIAGNOSTIC (11/22/2023 9:21 AM CDT) Anatomical Region Laterality Modality Breast Bilateral Mammography us Real Amaro MD MAMMO ORDERABLES Final Result * COLONOSCOPY REPORT (07/23/2019 7:46 AM NATIONAL SALES ASSOCIATE) Narrative Procedure Note Sita Carvajal MD - 07/23/2019 7:45 AM CST [facility] Endoscopy Patient Name: Laly Kincaid [...] normal. There was evidence of a prior [id number] ileo-colonic anastomosis in the proximal transverse colon. [...] of the ileum was normal. - Patent buzl-wa-aykq ileo-colonic anastomosis, characterized by healthy appearing mucosa. [...] of Addenda: [address]; [place] [address] us Sita Carvajal MD GI PROCEDURE ORDERABLES Final Result * HEMOGLOBIN A1C (08/06/2015 7:39 AM NATIONAL SALES ASSOCIATE) HEMOGLOBIN A1C 6.0 4.0 - 6.0 % 08/06/2015 2:55 PM NATIONAL SALES ASSOCIATE [facility] Comment:Note: Effective as o f 07/18/2014 a new methodology, Turbidimetric inhibition immunoassay (TINIA),has been implemented. EST. AVG GLUCOSE, A1C 126 mg/dL 08/06/2015 2:55 PM NATIONAL SALES ASSOCIATE [facility] Blood Venipuncture - L ab Collect / Unknown 08/06/2015 7:39 AM NATIONAL SALES ASSOCIATE 08/06/2015 7:39 AM NATIONAL SALES ASSOCIATE Vivien Atkins MD CHEMISTRY ORDERABLES Final Result [facility] CLIA# [id number] [address] [place] [address] from Last 3 Months or Most Recently Relevant to Health Maintenance [place] [place] [address] [facility] Advance Directives For more information, please contact: [phone] * Full Code (Latest Code Status on [...] 7:36 AM 12/24/2014 2:12 PM Care Teams Client Account Manager Relationship Specialty Start Date End Date Zahida Leahy FNP PCP - General Nurse Practitioner Family 10/15/20
--- OUTSIDE RECORDS SUMMARY | 2025-06-19 12:38 | XMS_ITS | Encounter Summary ---
Author Organization [facility] Address [address] [place] [address] Care Team Providers Care Pruner Name Role Phone Zahida Leahy [facility] Primary Care Provider [phone] Encounter Details Date Type Department Care Team (Late Contact Info) Description 01/17/2009 Outpatient Historical [facility] [address] Indu Barth MD [address] [place] [address] [place] [address] Malignant Neoplasm of Breast (Female), Unspecified Site (CMS/HCC) Social History Tobacco Use Types Packs/Day Years Used Date Smoking Tobacco: Never Alcohol Use Standard Drinks/Week Comments Yes 0 (1 standard drink = 0.6 oz pur e alcohol) Comments Unknown Sex and Gender Information Value Date Recorded Sex Assigned at Not on file Legal Sex Female 5:39 AM PUPIL PERSONNEL WORKER Gender Identity Not on file Sexual Orientation Not on file documented as of this encounter Plan of Treatment Upcoming Encounters Date Type Department Care Team (Late Contact Info) Description 07/03/2025 9:30 AM PUPIL PERSONNEL WORKER Office Visit [facility] Oncology and Hematology - [place] [address] [place] [address] Real Amaro MD [address] [facility] [address] [place] [address] documented as of this encounter Visit Diagnoses Diagnosis Malignant neoplasm of breast (female), unspecified site documented in this encounter Care Teams Pruner Relationship Specialty Start Date End Date Zahida Leahy FNP PCP - General Nurse Practitioner Family 10/15/20 documented as of this encounter
--- OUTSIDE RECORDS SUMMARY | 2025-06-19 12:38 | XMS_ITS ---
Author Organization [facility] [address] [facility] [place] [address] Care Team Providers Care Wireless Telegrapher Name Role Phone Zahida Leahy CAMPAIGN ASSOCIATE Primary Care Provider [phone] Active Problems Patient Care Coordination No te [...] oncologist: Primary care physician: Dr. Shweta Zaman RETAIL SALESMAN: ? Vocational Rehabilitation Technician: ? Palliative care physician: Nurse Navigator: [...] End Date: Clinical trial: [] Yes [] [place] of trial: Drugs given and date completed: [...] other tests as indicated on each visit. SALESPERSON HOUSEHOLD APPLIANCES: As needed. * Testing as indicated. Please continue to see your primary care provider/DIESEL PILE HAMMER OPERATOR for all general health care recommended for a female your age. Possible late and/or terminal carman effects that someone with this type of [...] back. OTHER COMMENTS REFERRALS [] Star [] [facility] [] [facility] [] Other (Specify): ADDITIONAL RESOURCES Patients may have many questions and concerns after their cancer treatment ends. A list of local resources as provided below to assist you. 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 ROV 1 year lymphedma mammo august Assessment & Plan (05/07/2011 3:03 PM FILLER OPERATOR): 3 1/2 years out On TMX Discussed [...] yet Assessment & Plan (05/07/2010 2:11 PM FILLER OPERATOR): 2 1/2 yrs out Mammogram in August [...] Is doing well with TMX for her ER+DC- tumor. Had b/l mammogram in Jul KASH PLAN: cont TMX Needs right sided mammogram in January and b/l in Jul with DMR visit. ROV 3 months. (no RT followup)
--- OUTSIDE RECORDS SUMMARY | 2025-06-19 12:38 | XMS_ITS | Encounter Summary ---
Author Organization [facility] Address [address] [place] [address] Care Team Providers Care Welding Production Supervisor Name Role Phone Zahida Leahy [facility] Primary Care Provider [phone] Encounter Details Date Type Department Care Team (Latest Contact Info) Description 06/11/2008 Outpatient Historical [facility] Radiation Oncology [place] [address] [place] [phone] Adarsh Hudson MD [address] [place] [phone] Malignant Neoplasm of Upper-Outer Quadrant of Female Breast (CMS/HCC) Social History Tobacco Use Types Packs/Day Years Used Date Smoking Tobacco: Never Assessed Comments Unknown Sex and Gender Information Value Date Recorded Sex Assigned at Not on file Legal Sex Female 5:39 AM TRADING SPECIALIST Gender Identity Not on file Sexual Orientation Not on file documented as of this encounter Plan of Treatment Upcoming Encounters Date Type Department Care Team (Late st Contact Info) Description 07/03/2025 9:30 AM TRADING SPECIALIST Office Visit [facility] Oncology and Hematology - [address] [address] Real Amaro MD [address] [facility] [address] [place] [address] documented as of this encounter Visit Diagnoses Diagnosis Malignant neoplasm of upper-outer quadrant of female breast (CMS/HCC) Malignant neoplasm of upper-outer quadrant of female breast documented in this encounter Care Teams Welding Production Supervisor Relationship Specialty Start Date End Date Zahida Leahy FNP PCP - General Nurse Practitioner Family 10/15/20 documented as of this encounter
--- OUTSIDE RECORDS SUMMARY | 2025-06-19 12:38 | XMS_ITS | Clinical Summary ---
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..] 07/21/2022 Assessment & Plan (07/21/2022 4:19 PM STUDIO MANAGER): Patient Counseling: --Nutrition: Stressed importance of [...] pending. Ordered today, reviewed previous labs from [facility] in care everywhere Major depressive disorder, recurrent, mild 06/03 Assessment & Plan (04/15/2025 5:42 PM CDT): Assessment & Plan (03/14/2025 12:01 PM CDT): Assessment & Plan (10/05/2023 4:06 PM CDT): Stable. Continue citalopram 40 mg daily Assessment & Plan (01/20/2023 8:59 PM CDT): Stable on citalopram and clonazepam prn. I checked their [place] HISTORICAL RECORDS ADMINISTRATOR sheet, and it was consistent with prescribed medications. F/u 6 months Assessment & Plan (07/21/2022 4:19 PM STUDIO MANAGER): Stable. Overall doing well. Using clonazepam about once a day. Will continue current medications and have her follow-up in 6 months Assessment & Plan (12/02/2021 2:34 PM CDT): Stable on citalopram 40mg daily. Uses clonazepam sparingly prn. Mostly in evenings. I checked their [place] HISTORICAL RECORDS ADMINISTRATOR sheet, and it was consistent with prescribed medications. F/u 6 months Assessment & Plan (06/03/2021 1:45 PM STUDIO MANAGER): Stable on current medication. Continue citalopram as ordered. Uses clonazepam sparingly. Renal given. May follow up in 6 months. I checked their [place] HISTORICAL RECORDS ADMINISTRATOR sheet, and it was consistent with prescribed [...] daily Assessment & Plan (08/04/2020 1:20 PM STUDIO MANAGER): Patient has not been taking her [...] previous lipid levels in [facility]. Pharmacotherapy as ordered. Order for lipid panel was given today to be obtained. Pt voiced understanding of lab drawn and continuation of current medication regimen. Assessment & Plan (07/21/2022 4:17 PM STUDIO MANAGER): Lipid abnormalities are stable, reviewed previous lipid levels in [facility]. Pharmacotherapy as ordered. Order for lipid panel was given today to be obtained. Pt voiced understanding of lab drawn and continuation of current medication regimen. Assessment & Plan (12/02/2021 2:33 PM CDT): Stable. Medications renewed. Lipid panel ordered. F/u 6 months Assessment & Plan (06/03/2021 1:46 PM STUDIO MANAGER): Lipid abnormalities are stable, reviewed previous lipid levels in [facility]. Pharmacotherapy as ordered. Assessment & Plan (12/02/2020 1:50 PM CDT): Lipid abnormalities are stable, reviewed previous lipid levels in [facility]. Pharmacotherapy as ordered. Order for lipid panel was given today to be obtained. Pt voiced understanding of lab drawn and continuation of current medication regimen. Assessment & Plan (06/03/2020 3:22 PM STUDIO MANAGER): Lipid abnormalities are stable. Pharmacotherapy as [...] oncologist: Primary care physician: Dr. Shweta Zaman WIRE WALKER: ? Cut Off Saw Set Up Operator: ? Palliative care physician: Nurse Navigator: Advanced Practice Nurse: Terry Colin SOFTWARE DEVELOPER INTERN Other care team providers: TREATMENT SUMMARY Cancer type/location/histology subtype: Adenocarcinoma of the colon Diagnosis date: 12/09/14 Stage: I II III IV Not Applicable Oncotype results if performed: Tumor testing results if performed: EGFR results if performed: Surgery: Yes No Surgery Date: Surgical procedures/location/findings: Systemic therapy (chemotherapy/hormonal therapy/other): Names of agents used: End Date: Clinical trial: Yes [place] of trial: Drugs given and date completed: [...] other tests as indicated on each visit. CLEANER AND PRESSER: As needed. * Testing as indicated. Please continue to see your primary care provider/VICE PRESIDENT FIXED INCOME for all general health care recommended for a female your age. Possible late and/or retirement effects that someone with this type of [...] cancer coming back. OTHER COMMENTS REFERRALS Star [facility] Integrative Therapy [facility] Services Other (Specify): ADDITIONAL RESOURCES Patients may have many questions and concerns after their cancer treatment ends. A list of local resources as provided below to assist you. [facility] cancer information center: [place] Citizen Cancer Society (ACS): www.acs.org National Cancer Sublimity (NCI): www.cancer.gov [place] Society of clinical oncology (ASCO): www.cancer.net Komen: www.komen.org Livestrong: www.The Royal [employer] Radiation therapy: www.rtanswers.org Patient signature: SOFTWARE DEVELOPER INTERN signature: Date delivered on: 60 minutes of time were spent delivering this cancer treatment summary and survivorship plan. Images from the original note were not included. Pt declined survivorship plan. Terry Colin SOFTWARE DEVELOPER INTERN COLORECTAL CANCER TREATMENT SUMMARY AND SURVIVORSHIP PLAN Patient name: Lina Lee Patient Patient : 1955 CARE TEAM Medical oncologist: Dr. Edin Hutchinson Surgeon: Dr. Myriam Sotomayor Radiation oncologist: Primary care physician: Dr. Shweta Zaman WIRE WALKER: ? Cut Off Saw Set Up Operator: ? Palliative care physician: Nurse Navigator: Advanced Practice Nurse: Terry Colin SOFTWARE DEVELOPER INTERN Other care team providers: TREATMENT SUMMARY Cancer [...] End Date: Clinical trial: [] Yes [] [place] of trial: Drugs given and date completed: [...] other tests as indicated on each visit. CLEANER AND PRESSER: As needed. * Testing as indicated. Please continue to see your primary care provider/VICE PRESIDENT FIXED INCOME for all general health care recommended for a female your age. Possible late and/or retirement effects that someone with this type of [...] back. OTHER COMMENTS REFERRALS [] Star [] [facility] Integrative Therapy [] [facility] Pastoral Services [] Other (Specify): ADDITIONAL RESOURCES Patients may have many questions and concerns after their cancer treatment ends. A list of local resources as provided below to assist you. [facility] cancer information paxton: [place] [employer] Cancer Society (ACS): www.acs.org National Cancer Sublimity (NCI): www.cancer.gov [place] Society of clinical oncology (ASCO): www.cancer.net Komen: www.koDescomplica.org Livestrong: www.Pinger.Kangou Radiation therapy: www.rtanswers.org Patient signature: SOFTWARE DEVELOPER INTERN signature: Date delivered on: 60 minutes of time were spent delivering this cancer treatment summary and survivorship plan. Assessment & Plan (04/15/2025 5:42 PM CDT): Currently on maintenance dosing of her chemotherapy. Most recent CT showing interval increase in size of masses despite her chemotherapy. Being followed by Oncology. Assessment & Plan (06/03/2021 1:39 PM STUDIO MANAGER): Managed by Oncology at [facility]. 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 [...] needed Assessment & Plan (08/28/2021 1:18 PM STUDIO MANAGER): Diagnosed at the age of 22. [...] needed Assessment & Plan (06/03/2021 1:38 PM STUDIO MANAGER): Managed by endocrinologyValentine Pace. Assessment & [...] . Assessment & Plan (08/04/2020 1:19 PM STUDIO MANAGER): Diagnosed at the age of 22. [...] Rivera Assessment & Plan (05/30/2017 8:06 PM STUDIO MANAGER): TSH is still low. Will refer [...] hydrochlorothiazide. Assessment & Plan (07/21/2022 4:17 PM STUDIO MANAGER): Stable/ Improved. Blood pressure is adequately controlled on current medication. We will not make any medication changes today. Will have her follow-up in 6 months for continued monitoring and management Assessment & Plan (12/02/2021 2:33 PM CDT): Improved/ stable. Continue current medications. F/u 6 months Assessment & Plan (06/03/2021 1:46 PM STUDIO MANAGER): Stable/ Improved. Blood pressure is adequately [...] re-evaluation Assessment & Plan (06/03/2020 3:22 PM STUDIO MANAGER): Blood pressure is adequately controlled on [...] 12/27/2017 Assessment & Plan (05/30/2017 8:18 PM STUDIO MANAGER): Will go ahead and start antibiotics. She has a hx of mrsa. Treat with septra. 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 Will renew clobetasol cream per patient request. Uses p.r.n. Assessment & Plan (05/24/2017 5:00 PM STUDIO MANAGER): Having a lot of itching with [...] needed. Assessment & Plan (06/03/2020 3:23 PM STUDIO MANAGER): Stable on current medication. Continue clonazepam [...] Encounters Date Type Department Care Team Description 05/30/2025 ACO Quality [facility] Accountable Care Organization [address] [place] [id number] Shira Mata MA 04/24/2025 2:30 PM CDT Office Visit [facility] Medical Group [facility] [place] [address] [place] [address] Sandra Atkins NP Non-recurrent acute suppurative otitis media of right ear without spontaneous rupture of tympanic membrane (Primary Dx); Viral URI with cough; Impacted cerumen of right ear 04/16/2025 Results Follow-Up [facility] Primary Care at [address] [place] [address] Savana Sanchez, SOFTWARE DEVELOPER INTERN Comprehensive metabolic panel, CBC with auto differential, TSH, Additional followed-up results: 8 04/16/2025 Orders Only [facility] Medical [facility] Primary Care at [place] [phone] Savana Sanchez, SOFTWARE DEVELOPER INTERN 04/15/2025 3:00 PM CDT Lab [facility] Outpatient Center at [place] [id number] Type 2 diabetes mellitus with hyperglycemia, without long-term current use of insulin (HCC); Primary hypothyroidism; Mixed hyperlipidemia; Vitamin D deficiency 04/15/2025 2:00 PM CDT Office Visit [facility] Diabetes Endocrine Care at [place] [phone] Giorgio Myers, DO Type 2 diabetes mellitus without complication, without long-term current use of insulin (HCC) (Primary Dx); Primary hypothyroidism 04/15/2025 1:30 PM CDT Office Visit [facility] Primary Care at [address] [phone] Savana Sanchez, RASHI Encounter for Medicare annual wellness exam (Primary [...] Anxiety; Screening for AAA (abdominal aortic aneurysm) from Last 3 Months Immunizations Immunization Administration [...] mellit us; Coronary artery disease Mother Meena Caryn nary artery disease; /Coronary artery disease, premature; Heart [...] on file Legal Sex Female 8:01 PM STUDIO MANAGER Gender Identity Not on file Sexual [...] Screening-Bone Density Scan 03/03/2024 03/03/2022 Covid-19 Vaccine (5 - 5-2 6 season) 2025 07/19/2022, 06/18/2021, 09/15/2020, Additional history exists Dilated Eye Exam 04/18/2025 04/18/2024 Foot Exam 06/25/2025 06/25/2024 Hemoglobin A1C 10/14/2025 04/15/2025, 0 08/2024, 06/25/2024, Additional history exists Albumin Creatinine Ratio, Urine 04/15/2026 , 06/29/2024 Depression Screening 04/15/2026 04/15/2025, 04/18/2024, 01/20/2023, Additional history exists Fall Risk Assessment 04/15/2026 04/15/2025, 01/20/2023, 07/20/2022, Additional history exists Lipid Panel 04/15/2026 04/15/2025, 0 08/2024, 10/05/2023, Additional history exists Well Visit [...] 2:44 PM CDT Viral URI with cough DE REMOVAL IMPACTED CERUMEN INSTRUMENTATION UNILAT Routine 04/24/2025 [...] without long-term current use of insulin (HCC) RETINAVUE SCANNER - OU - BOTH EYES Routine 04/18/2024 Type 2 diabetes mellitus with hyperglycemia, unspecified whether retirement insulin use (HCC) DEXA AXIAL SKELETON BONE DENSITY 1 OR MORE SITES Schedule Routine, Read Routine (OP Routine) 03/03/2022 SCREENING MAMMOGRAM 2D BILATERAL Schedule Routine, Read Routine (OP Routine) 01/25/2020 HEPATITIS C ANTIBODY Routine 04/12/2019 1:33 PM CDT Encounter for hepatitis C screening test for low risk patient [facility] COLONOSCOPY Routine 07/05/2016 1:12 PM STUDIO MANAGER COLONOSCOPY Routine 07/05/2016 from Last 3 Months or Most Recently Relevant to Health Maintenance Results * POC Influenza A/B, COVID-19 antigen (04/24/2025 2:47 PM CDT) Influenza A Ag, POC Negative Negative [facility] Influenza B Ag, POC Negative Negative [facility] COVID-19 Ag POC Presumptive Negative Presumptive Negative, Invalid [facility] Nasal 04/24/2025 2:47 PM CDT Sandra Atkins NP POINT OF CARE TEST ORDERABLES Final Result [facility] [address] [place] [address] * POCT rapid strep A (04/24/2025 2:44 PM CDT) Rapid Strep A, POC Negative Negative Swab 04/24/2025 2:44 PM CDT Sandra Atkins NP POINT OF CARE TEST ORDERABLES Final Result * DE REMOVAL IMPACTED CERUMEN INSTRUMENTATION UNILAT (04/24/2025 2:30 [...] well with no immediate complications Sandra Atkins NP IN CLINIC/BEDSIDE ORDERABLES Final Result * (ABNORMAL) eGFR (04/15/2025 2:52 PM CDT) eGFR 30(L) >=60 mL/min/1. 73 m2 Comment: [...] was last reviewed 2021. Testing performed by: [facility], [address] [place] [address]., [id number] Blood 04/15/2025 2:52 PM CDT 04/15/2025 7:26 PM CDT Savana Sanchez SOFTWARE DEVELOPER INTERN LAB BLOOD ORDERABLES Final Re sult [address] Department [place] [address] * Differential, auto (04/15/2025 2:52 PM CDT) Neutrophil abs 2.86 1.50 - 6.50 K/cumm Comment:Testing performed by : [facility], [address] [place] [address]., [id number] Imm gran abs 0.05 0.00 - 0.10 K/cumm [facility] Comment:Testing performed by : [facility], [address] [place] [address]., [address] Lymphocyte abs 1.95 0.80 - 3.30 K/cumm [facility] Comment:Testing performed by : [address] [address] Monocyte abs 0.55 0.20 - 0.80 K/cumm [facility] Comment:Testing performed by : [facility], [address] [place] [address]., [address] Eosinophil abs 0.24 0.00 - 0.50 K/cumm [facility] Comment:Testing performed by : [address] [address] Basophil abs 0.04 0.00 - 0.10 K/cumm [facility] Comment:Testing performed by : [address] [address] Neutrophil pct 50.2 % [facility] Comment: Interpretive Data Percent cell count reference ranges are not reported, since discordance with absolute values may lead to misinterpretation of CBC data. Current Interpretive Data was last revised on 2017. Testing performed by: [facility], [address] [place] [address]., [address] Imm gran pct 0.9 % CERNER Comment: Interpretive Data Percent cell count reference ranges are not reported, since discordance with absolute values may lead to misinterpretation of CBC data. Current Interpretive Data was last revised on 2017. Testing performed by: [address] [address] Lymphocyte pct 34.3 % CERNER Comment: Interpretive Data Percent cell count reference ranges are not reported, since discordance with absolute values may lead to misinterpretation of CBC data. Current Interpretive Data was last revised on 2017. Testing performed by: [address] [address] Monocyte pct 9.7 % KAYLA Comment: Interpretive Data Percent cell count reference ranges are not reported, since discordance with absolute values may lead to misinterpretation of CBC data. Current Interpretive Data was last revised on 2017. Testing performed by: [facility], [address] [place] [address]., [address] Eosinophil pct 4.2 % KAYLA Comment: Interpretive Data Percent cell count reference ranges are not reported, since discordance with absolute values may lead to misinterpretation of CBC data. Current Interpretive Data was last revised on 2017. Testing performed by: [address] [address] Basophil pct 0.7 % KAYLA Comment: Interpretive Data Percent cell count reference ranges are not reported, since discordance with absolute values may lead to misinterpretation of CBC data. Current Interpretive Data was last revised on 2017. Testing performed by: [address] [address] Blood 04/15/2025 2:52 PM CDT 04/15/2025 7:08 PM CDT Savana Sanchez SOFTWARE DEVELOPER INTERN LAB BLOOD ORDERABLES Final Re sult KAYLA [address] Department [place] [address] * (ABNORMAL) Thyroid Function [place] (04/15/2025 2:52 PM CDT) TSH 9.75(H) 0.30 - 4.20 mcIUnit/mL Comment:Testing performed by : [address] [address] Blood 04/15/2025 2:52 PM CDT 04/15/2025 7:08 PM CDT us Savana Sanchez SOFTWARE DEVELOPER INTERN LAB BLOOD ORDERABLES Final Re sult [address] Department [place] [address] * (ABNORMAL) CBC with auto differential (04/15/2025 2:52 PM CDT) WBC 5.69 3.80 - 9.90 K/cumm Comment:Testing performed by : [address], [address] Hgb 9.7(L) 11.9 - 15.5 g/dL [facility] CH Comment:Testing performed by : [address], [address] Hct 30.5(L) 35.6 - 45.5 % [facility] Comment:Testing performed by : [address], [address] Plt 150 150 - 400 K/cumm [facility] Comment:Testing performed by : [address], [address] MPV 10.0 9.1 - 12.3 fL [facility] CH Comment:Testing performed by : [address], [address] RBC 2.88(L) 3.90 - 5.20 M/cumm [facility] Comment:Testing performed by : [address], [address] MCV 105.9(H) 81.3 - 96.4 fL [facility] CH Comment:Testing performed by : [address], [address] MCH 33.7(H) 27.1 - 33.3 pg [facility] CH Comment:Testing performed by : [address], [address] MCHC 31.8(L) 32.3 - 35.7 g/dL [facility] CH Comment:Testing performed by : [address], [address] RDW CV 14.2 11.1 - 14.9 % C[facility]ER CH Comment:Testing performed by : [facility], [address] [place] [address]., [address] RDW SD 54.8(H) 35.7 - 48.1 fL KAYLA Comment:Testing performed by : [address] [address] NRBC abs 0.00 0.00 - 0.01 K/cumm KAYLA MITCHELL Comment:Testing performed by : [address] [address] Blood 04/15/2025 2:52 PM CDT 04/15/2025 7:08 PM CDT Savana Sanchez SOFTWARE DEVELOPER INTERN LAB BLOOD ORDERABLES Final Re sult Performing Organization Address [facility] Co de Phone Number KAYLA [address] Department [place] [address] * (ABNORMAL) Albumin Creatinine Ratio, Urine (04/15/2025 2:52 PM CDT) Albumin Ur 341.4 mg/L Comment: Interpretive Data No reference range established. Current interpretive data was last revised 2018. Testing performed by: [address] [address] Creatinine Ur 53.8 mg/dL KAYLA Comment: Interpretive Data No reference range established. Current interpretive data was last revised 2018. Testing performed by: [address] [address] Albumin Creatinine Ratio, Ur 635(H) 1 - 29 mg/g KAYLA Comment:Testing performed by : [address] [address] Urine 04/15/2025 2:52 PM CDT 04/15/2025 7:08 PM CDT Savana Sanchez SOFTWARE DEVELOPER INTERN LAB URINE ORDERABLES Final Re sult Performing Organization Address City/[facility]/ZIP Co de Phone Number KAYLA [address] Department [place] [address] * (ABNORMAL) Vitamin D 25 hydroxy (04/15/2025 2:52 PM CDT) Vitamin D 25-OH 16(L) 30 - 80 ng/mL Comment:Testing performed by : [address] [address] Blood 04/15/2025 2:52 PM CDT 04/15/2025 7:08 PM CDT Savana Sanchez NP LAB BLOOD ORDERABLES Final Re sult Performing Organization Address [facility] Co de Phone Number [facility] [place] Department [place] [address] * (ABNORMAL) TSH (04/15/2025 2:52 PM CDT) Pathologist [facility] Thyroid Stimulating Hormone 9.75(H) 0.30 - 4.20 mcIUnit/mL Comment:Testing performed by : [address] [address] Blood 04/15/2025 2:52 PM CDT 04/15/2025 7:08 PM CDT Savana Sanchez NP LAB BLOOD ORDERABLES Final Re sult Performing Organization Address [facility] Co de Phone Number [facility] [place] Department [place] [address] * T4, free (04/15/2025 2:52 PM CDT) Pathologist [facility] Free T4 1.13 0.90 - 1.70 ng/dL Comment:Testing performed by : [address] [address] Blood 04/15/2025 2:52 PM CDT 04/15/2025 7:26 PM CDT Savana Sanchez NP LAB BLOOD ORDERABLES Final Re sult Performing Organization Address City/[facility]/ZIP Co de Phone Number KAYLA [facility] Department [place] [address] * (ABNORMAL) Hemoglobin A1c (04/15/2025 2:52 PM CDT) Pathologist [facility] Hgb A1C 7.4(H) 4.0 - 5.6 % Comment:Testing performed by : [address] [address] Estimated Average Glucose 166 mg/dL KAYLA Comment: The ADA recommends reporting an estimated Average Glucose (eAG) with all Hemoglobin A1c results using the equation derived from a study of 507 normal and diabetic adults. Minority populations were underrepresented and children were not included. (Diabetes Care 31:3556-8700, 2008). The eAG is not equivalent to a fasting glucose. Testing performed by: [address] [address] Blood 04/15/2025 2:52 PM CDT 04/15/2025 7:08 PM CDT Savana Sanchez SOFTWARE DEVELOPER INTERN LAB BLOOD ORDERABLES Final Re sult KAYLA [address] [facility] Department [place] [address] * Lipid panel (04/15/2025 2:52 PM CDT) [facility] Cholesterol 129 30 - 199 mg/dL Comment: [...] last revised on 2018. Testing performed by: [address] [address] Triglycerides 114 <=149 mg/dL KAYLA MITCHELL Comment: Interpretive Data Ages < or = [...] last revised on 2018. Testing performed by: [facility], [address] [place] [address]., [address] HDL 40 >=40 mg/dL KAYLA Comment: Interpretive [...] last revised on 2018. Testing performed by: [facility], [address] [place] [address]., [address] LDL, calculated 68 <=129 mg/dL KAYLA Comment: [...] 3. Laci Gonzalez et al. LEIGH Cardiol. 2020 October 25;5(5):540-549. doi: [email or web address] Current Interpretive Data was last revised on 2024. Testing performed by: [address] [address] Non-HDL Cholesterol 89 mg/dL KAYLA Comment: Interpretive [...] last revised on 2018. Testing performed by: [address] [address] Chol/HDL ratio 3 KAYLA Comment:Testing performed by : [address] [address] Blood 04/15/2025 2:52 PM CDT 04/15/2025 7:08 PM CDT Savana Sanchez SOFTWARE DEVELOPER INTERN LAB BLOOD ORDERABLES Final Re sult KAYLA [address] Department [place] [address] * (ABNORMAL) Comprehensive metabolic panel (04/15/2025 2:52 PM CDT) Sodium 140 135 - 145 mmol/L Comment:Testing performed by : [address] [address] Potassium, pl 4.2 3.3 - 4.9 mmol/L KAYLA Comment:Testing performed by : [address] [address] Chloride 105 97 - 110 mmol/L KAYLA Comment:Testing performed by : [address] [address] CO2 23 22 - 32 mmol/L CERNER CH Comment:Testing performed by : [facility], [address] [place] [address]., [id number] Anion gap 12 2 - 15 mmol/L CERNER CH Comment:Testing performed by : [facility], [address] [place] [address]., [address] BUN 26(H) 6 - 25 mg/dL CERNER CH Comment:Testing performed by : [address] [address] Creatinine 1.81(H) 0.60 - 1.10 mg/dL CERNER CH Comment:Testing performed by : [address], [address] Glucose 95 70 - 199 mg/dL CERNER CH Comment: Interpretive Data Fasting glucose >/= 126 [...] classification and Diagnosis of Diabetes Diabetes Care 2021; 46: S19-S40. Current interpretive data was last revised 2022. Testing performed by: [address] [address] Calcium 9.6 8.5 - 10.3 mg/dL CERNER CH Comment:Testing performed by : [address] [address] Bilirubin, total 0.4 0.1 - 1.2 mg/dL CERNER CH Comment:Testing performed by : [address] [address] Protein, pl 8.5 6.5 - 8.5 g/dL CERNER CH Comment:Testing performed by : [address] [address] Albumin 4.2 3.5 - 5.0 g/dL CERNER CH Comment:Testing performed by : [address], [address] Alk phos 69 40 - 130 Units/L CERNER CH Comment:Testing performed by : [facility], [address] [place] [address]., [id number] ALT 17 7 - 45 Units/L KAYLA Comment:Testing performed by : [facility], [address] [place] [address]., [address] AST 34 10 - 45 Units/L KAYLA MITCHELL Comment:Testing performed by : [facility], [address] [place] [address]., [id number] Blood 04/15/2025 2:52 PM CDT 04/15/2025 7:08 PM CDT Savana Sanchez NP LAB BLOOD ORDERABLES Final Re sult KAYLA [address] Department [place] [address] * RetinaVue Scanner - OU - Both [...] KAYLA GALLAGHER (DAVID) Comment:Testing performed by : [facility], [address] [place] [address]., [address] Blood specimen (specimen) 04/12/2019 1:33 PM CDT 04/13/2019 9:46 AM CDT Zahida Leahy NP LAB MICROBIOLOGY - GENERAL OR DERABLES Final Result [facility] ([place]) [address] [place] [address] * COLONOSCOPY (07/05/2016 1:12 PM STUDIO MANAGER) us Historical Provider HEALTH MAINTENANCE Final Result * COLONOSCOPY (07/05/2016) Colonoscopy Unknown us Historical Provider HEALTH MAINTENANCE Final Result from Last 3 Months or Most Recently Relevant to Health Maintenance Insurance [employer] [facility] AETNA MEDICARE GOLD Care Teams Chrome Cleaner Relationship Specialty Start Date End Date Savana Sanchez NP [address] [facility] [address] [place] [address] PCP - General General Handling Supervisor 10/05/23
--- OUTSIDE RECORDS SUMMARY | 2025-06-19 12:38 | XMS_ITS | Encounter Summary ---
Author Organization [facility] Address [address] [place] [address] Care Team Providers Care Tooth Cutter Contact Wheel Name Role Phone Zahida Leahy [facility] Primary Care Provider [phone] Encounter Details Date Type Department Care Team (Latest Contact Info) Description 05/10/2008 Outpatient Historical [facility] Radiation Oncology [place] [address] [place] [phone] Adarsh Hudson MD [address] [place] [phone] Malignant Neoplasm of Upper-Outer Quadrant of Female Breast (CMS/HCC) Social History Tobacco Use Types Packs/Day Years Used Date Smoking Tobacco: Never Assessed Comments Unknown Sex and Gender Information Value Date Recorded Sex Assigned at Not on file Legal Sex Female 5:39 AM [employer] CONSULTANT Gender Identity Not on file Sexual Orientation Not on file documented as of this encounter Plan of Treatment Upcoming Encounters Date Type Department Care Team (Late st Contact Info) Description 07/03/2025 9:30 AM [employer] CONSULTANT Office Visit [facility] Oncology and Hematology - Tim [address] [phone] Real Amaro MD [address] [facility] [address] [place] [address] documented as of this encounter Visit Diagnoses Diagnosis Malignant neoplasm of upper-outer quadrant of female breast (CMS/HCC) Malignant neoplasm of upper-outer quadrant of female breast documented in this encounter Care Teams Tooth Cutter Contact Wheel Relationship Specialty Start Date End Date Zahida Leahy FNP PCP - General Nurse Practitioner Family 10/15/20 documented as of this encounter
== END 2025-06-19 12:31 | disposition home or self-care (01) ==
PROVIDERS: PCP Nurse Practitioner; Visit Provider Internal Medicine Hematology & Oncology
DX: K76.9 Liver disease, unspecified (principal); K74.60 Unspecified cirrhosis of liver; R16.1 Splenomegaly, not elsewhere classified; I85.00 Esophageal varices without bleeding; C18.0 Malignant neoplasm of cecum
CPT/HCPCS: 71260; 74177; Q9967